=== PATIENT | female | born 1965 | race Caucasian/White ===

== ENCOUNTER 2020-01-07 15:35 | Emergency (ER) | payer OTHER, SELFPAY ==
--- NOTE | ~2020-01-07 | CT_ITS ---
EXAMINATION: CT abdomen pelvis w con EXAM DATE: 01/07/2020 18:12 INDICATION: Left lower quadrant pain. TECHNIQUE: Spiral CT of the abdomen and pelvis was performed following intravenous injection of 100 m L Omnipaque 350. Axial, coronal and sagittal images were reviewed. The dose-length product (DLP) fo r this examination was 821.48 mGy-cm. The exposure was tailored according to patient size (auto mA e xposure control), and iterative reconstruction (ASIR) was used as additional dose reduction technique . There is no prior study for comparison. FINDINGS: The liver, spleen, adrenal glands and pancreas are unremarkable. Gallbladder is unremarkab le. No biliary obstruction. Portal and splenic veins are patent. Kidneys enhance symmetrically. Sm all regions of left renal cortical scarring. There is no hydronephrosis. Probable small uterine fib roids. Ovaries are unremarkable. The bladder is unremarkable. There is no retroperitoneal or pelvic lymphadenopathy. The appendix is not positively visualized. There is no pericecal inflammatory change to suggest appe ndicitis. There is mild scattered colonic diverticulosis. There is no adjacent inflammatory change t o suggest diverticulitis. The stomach and small bowel are unremarkable. There is expected amount of colonic stool. No free intraperitoneal gas. The heart is normal in size. There are no pericardia l or pleural effusions. There is 4 mm right lower lobe nodule which is pleural-based, most likely gr anuloma. Several other 2-3 mm right middle lobe nodules. Optional twelve-month follow-up low-dose zay st CT. There are no osteoblastic or osteolytic lesions identified. Advanced lower lumbar facet arthr opathy. IMPRESSION: 1. Several small right basilar nodules less likely granulomas; optional twelve-month follow-up low-d ose chest CT. 2. Probable small fibroids. 3. Mild scattered colonic diverticulosis. 4. No acute intra-abdominal findings. Reviewed, dictated and finalized at location A. RIAL CONTROL ANALYST IMPRESSION: 1. Several small right basilar nodules less likely granulomas; optional twelve -month follow-up low-dose chest CT. 2. Probable small fibroids. 3. Mild scattered colonic diverticulosis. 4. No acute intra-abdominal findings.
[2020-01-07 15:52] VITALS: BP 150/82; PULSE 121; RESP 18; TEMP 36.7; O2SAT 98
[2020-01-07 16:10] LABS: Basophils Percent Auto 0.3 % (0.2-1.2); Eosinophils Absolute Auto 0.1 K/mm3 (0-0.3); Eosinophils Percent Auto 4.7 % (0-4.4); Hematocrit 37.4 % (37.0-47.0); Hemoglobin 12.7 g/dL (12.0-15.0); Lymphocytes Absolute Auto 0.73 K/mm3 (0.9-3.2); Lymphocytes Percent Auto 24.3 % (18.3-44.2); Mean Corpuscular Hemoglobin 29.5 pg (26-34); Mean Platelet Volume 9.4 fl (7.4-10.4); Monocytes Absolute Auto 0.4 K/mm3 (0.1-0.6); Monocytes Percent Auto 14.3 % (2.6-8.5); Neutrophils Absolute Auto 1.7 K/mm3 (1.3-6.7); Neutrophils Percent Auto 56.4 % (45.5-73.1); Platelet Count Result 188 k/mm3 (150-375); Red Cell Distribution Width 12.4 % (11.5-14.5)
[2020-01-07 16:20] LABS: Alanine Aminotransferase 31 U/L (4-35); Albumin Level 4.4 g/dL (3.5-5.1); Alkaline Phosphatase 127 U/L (38-126); Aspartate Amino Transferase 34 U/L (14-36); Bilirubin,Total 0.7 mg/dL (0.2-1.3); Blood Urea Nitrogen 13 mg/dL (7-17); Calcium 9.5 mg/dL (8.4-10.2); Carbon Dioxide 24 mmol/L (22-30); Chloride 98 mmol/L (98-107); Estimated CRCL calculation 81 ml/min; Estimated Glomerular Filt Rate > 60; Glucose 119 mg/dL (65-105); Lipase 57 U/L (23-300); Potassium 3.8 mmol/L (3.4-5.0); Sodium 132 mmol/L (137-145)
--- NOTE | 2020-01-07 17:33 | ED.ABDPAIN ---
HPI - Abdominal Pain General Chief Complaint: Abdominal Pain Stated Complaint: abd pain Time Seen by Provider: 01/07/20 17:24 Source: patient Mode of arrival: ambulatory Limitations: no limitations History of Present Illness HPI narrative: The pt is a 55 y/o female who presents to the ED c/o constant sharp LUQ ABD pain onset today. Pt states that two days ago, she had some undercooked shrimp at [employer], and experienced some N/V, though the vomiting is resolved. She states that this resolved yesterday, but today, she experienced some nausea, dizziness, diaphoresis, and this sharp pain. Pt also reports that she has not taken any pain medications. Pt reports loose stools. MD elicited complaint: abdominal pain Pain Consistency: constant Location: LUQ Quality: sharp Associated symptoms: nausea (Onset 2 days ago), vomiting (Onset 2 days ago, Resolved ) and other (Diaphoresis, dizziness, loose stools) Related Data Allergies Allergy/AdvReac Type Severity Reaction Status Date / Time No Known Allergies Allergy Unknown Verified 01/07/20 17:48 Review of Systems Review of Systems: All systems reviewed & are unremarkable except as noted in HPI and below Constitutional: Constitutional: Reports excessive sweating Gastrointestinal: Gastrointestinal: Reports abdominal pain (Sharp, LUQ), Reports nausea (Onset 2 days ago), Reports vomiting (Onset 2 days ago, resolved) and Reports other (Loose stools) Neurologic: Reports dizziness PMFSH Past Medical History Medical History (Updated 01/07/20 @ 20:08 by Jamey Martinez DO) Anxiety and depression Essential hypertension HTN (hypertension) Obesity (BMI 30-39.9) Surgical History Surgical History (Updated 01/07/20 @ 18:00 by Candelario Trinidad) H/O section H/O tubal ligation Social History Social History (Updated 01/07/20 @ 18:00 by Candelario Trinidad) Smoking status: Never smoker Gender identity (if verbalized by the patient): Female Comments PCP: Dr. Velez Exam Narrative: Exam Narrative: APPEARANCE: No acute distress, nontoxic, resting in bed HEENT: Normocephalic, atraumatic, OMM RESPIRATORY: No respiratory distress, clear to auscultation bilaterally with no rhonchi wheezing or rales CARDIOVASCULAR: RRR s murmur ABDOMINAL: Soft, nondistended, tender to palpation left lower quadrant no tenderness in right upper quadrant, right lower quadrant left upper quadrant, no rebound or guarding MUSCULOSKELETAl: Moves all extremities. No clubbing, cyanosis or edema. NEURO: Awake and alert. Following commands, speech normal, no focal deficits SKIN:: Warm, dry. Normal Color PSYCHIATRIC: Normal affect/mood Course Course Emergency Course: Patient states that they are feeling much better at this time. States abdominal pain has resolved. Repeat abdominal exam shows the patient's abdomen to be soft and nontender. Discussed with patient results of workup and diagnosis. Discussed need for follow-up with primary care physician, reasons to return to the emergency department in proper use of medication. Patient understands and agrees to current treatment plan Vital Signs Vital signs: Vital Signs Temperature 98.0 F 01/07/20 15:52 Pulse Rate 121 H 01/07/20 15:52 Respiratory Rate 18 01/07/20 15:52 Blood Pressure 150/82 H 01/07/20 15:52 Pulse Oximetry 98 01/07/20 15:52 Temperature 98.0 F 01/07/20 15:52 Pulse Rate 121 H 01/07/20 15:52 Respiratory Rate 18 01/07/20 15:52 Blood Pressure 150/82 H 01/07/20 15:52 Pulse Oximetry 98 01/07/20 15:52 MDM - Abdominal Pain MDM Narrative Medical decision making narrative: Patient's abdomen is soft without significant pain or signs of surgical abdomen on serial exams. Lab and x-ray evaluations are reviewed and patient is felt to be a reasonable candidate for outpatient management. Patient was instructed as to limitations of x-ray and laboratory evaluation and encouraged to return to ED or primary physician for repeat exa
[2020-01-07] MEDS: SODIUM CHLORIDE 0.9% IV 1,000 ML 999 ML IV CONT ×2 (18:33→19:24)
[2020-01-07] MEDS: ONDANSETRON INJ 4 MG/2 ML VIAL IV PUSH (18:33)
[2020-01-07 18:46] LABS: Add Urine Microscopic? YES; Appearance Urine Clear (Clear); Bilirubin Urine Negative (Negative); Blood Urine Negative (Negative); Color Urine Yellow (Yellow); Glucose Urine UA Negative (Negative); Ketones Urine 2+ mg/dL (Negative); Leukocyte Esterase Ur Negative LEU/UL (Negative); Mucus Urine Rare /lpf; Nitrate Urine Negative (Negative); Protein Urine 1+ mg/dL (Negative); RBC Urine 0-2 /hpf (0-2); Squamous Epithelial Cell Urine Many /hpf (Few); Urobilinogen Urine Negative mg/dL (<2.0)
[2020-01-07 20:06] VITALS: BP 131/69; PULSE 86; RESP 20; O2SAT 96
[2020-01-07 20:41] VITALS: BP 132/80; PULSE 80; RESP 20; TEMP 36.7; O2SAT 98
== END 2020-01-07 20:42 | disposition home or self-care (01) ==
PROVIDERS: Emergency Provider Emergency Medicine; PCP Internal Medicine
DX: R10.12 Left upper quadrant pain (principal); R11.2 Nausea with vomiting, unspecified; R19.7 Diarrhea, unspecified; I10 Essential (primary) hypertension; E66.9 Obesity, unspecified; Z68.35 Body mass index [BMI] 35.0-35.9, adult
CPT/HCPCS: 36415; 74177; 80053; 81001; 81025; 83690; 85025; 96361; 96365; 96375; 99284; J0131; J2405; J7030; Q9967

== ENCOUNTER 2020-09-12 08:37 | Outpatient (CLI) | payer OTHER, SELFPAY ==
--- NOTE | ~2020-09-12 | MM_ITS ---
EXAMINATION: MM screening priyanka BI w sulma HISTORY: Screening mammogram TECHNIQUE: Craniocaudal and mediolateral oblique 3-D tomosynthesis images were obtained and synthetic 2-D images were generated. CAD analysis was submitted and interpreted. COMPARISON: 09/23/2010 BREAST PARENCHYMAL COMPOSITION: There are scattered areas of fibroglandular density. FINDINGS: There is no evidence of suspicious mass, calcification, or architectural distortion to sugg est malignancy in either breast. There has been no suspicious interval change. IMPRESSION: 1. No mammographic evidence of malignancy. 2. Recommend routine screening mammography in one year. BI-RADS Category 1: Negative Reviewed, dictated and finalized at location A. OR SAFETY SUPPORT MANAGER
== END 2020-09-12 08:38 | disposition home or self-care (01) ==
LOC: ANHIMG 08:39
PROVIDERS: PCP Internal Medicine; Visit Provider Internal Medicine
DX: Z12.31 Encounter for screening mammogram for malignant neoplasm of breast (principal)
CPT/HCPCS: 77063; 77067

== ENCOUNTER 2024-10-21 09:56 | Outpatient (CLI) | payer BC, SELFPAY ==
--- NOTE | ~2024-10-21 | MM_ITS ---
EXAMINATION: MM screening priyanka BI w sulma HISTORY: Screening TECHNIQUE: Craniocaudal and mediolateral oblique 3-D tomosynthesis images were obtained and synthetic 2-D images were generated. CAD analysis was submitted and interpreted. COMPARISON: Comparison to multiple prior studies sequentially, with oldest reviewed study dated 09/03. BREAST PARENCHYMAL COMPOSITION: Not dense: There are scattered areas of fibroglandular density. FINDINGS: There is no evidence of suspicious mass, calcification, or architectural distortion to sugg est malignancy in either breast. There has been no suspicious interval change. IMPRESSION: 1. No mammographic evidence of malignancy. 2. Recommend routine screening mammography in one year. BI-RADS Category 1: Negative Reviewed, dictated and finalized at location B. D GRADE TEACHER
== END 2024-10-21 09:57 | disposition home or self-care (01) ==
LOC: ANHIMG 09:59
PROVIDERS: PCP Family Medicine; Visit Provider Family Medicine
DX: Z12.31 Encounter for screening mammogram for malignant neoplasm of breast (principal)
CPT/HCPCS: 77063; 77067

== ENCOUNTER 2024-11-04 22:25 | Emergency (ER) | payer BC, SELFPAY ==
--- NOTE | ~2024-11-04 | XR_ITS ---
XR hand RT min 3V DATE: 11/05/2024 08:39 INDICATION: Fall yesterday. Pain and bruising of second through fourth digits TECHNIQUE: 3 views COMPARISON: None FINDINGS: There is a small minimally anteriorly displaced intra-articular anterolateral corner fractu re of the base of the middle phalanx of the third digit. Probable small accessory ossicle at the lateral aspect of the proximal interphalangeal joint of the f ourth digit; if there is concern for possible fracture of this digit, better detail could be obtained with dedicated 4 view fourth digit radiographic examination. No other fracture dislocation, periosteal reaction or bone destruction, erosive change or chondrocalc inosis is noted. IMPRESSION: Small cortical avulsion fracture the anterolateral aspect of the middle phalanx of the th ird digit Reviewed, dictated and finalized at location A. AL THERAPIST IMPRESSION: Small cortical avulsion fracture the anterolateral aspect of the mi ddle phalanx of the third digit
--- NOTE | ~2024-11-04 | CT_ITS ---
CT brain wo con Ordering provider: Kendra Ansari PA-C History: 59 years Female with . head injury . Comparison: 04/22/2015. Technique: CT of the head without contrast. Radiation reduction technique utilized.The dose-length product was 1362 mGy-cm. FINDINGS: BRAIN PARENCHYMA AND CSF SPACES: No midline shift, mass effect or hemorrhage. The brain parenchyma a nd CSF spaces are otherwise normal. VISUALIZED PARANASAL SINUSES: Well aerated. MASTOIDS: Well aerated. BONES: The bones appear intact. SOFT TISSUES: Visualized nasopharynx is normal. Left frontal scalp hematoma. Otherwise, Superficial soft tissues are normal. IMPRESSION: No acute intracranial findings. Reviewed, dictated and finalized at location A. DYNAMICS DEVELOPER
--- NOTE | ~2024-11-04 | CT_ITS ---
CT facial & cervical spine wo Ordering provider: Kendra Ansari PA-C History: . fall . Comparison: None. Technique: Thin slice axial CT of the facial bones was performed without contrast. Coronal and sagit flory reformatted images were also obtained. . Automated exposure control and iterative reconstruction technique were employed. The dose-length product was 379.40 mGy-cm. FINDINGS: PARANASAL SINUSES: Minimal mucosal thickening in the right maxillary sinus otherwise, normal. BONES: No facial fracture including no nasal bone fracture. ORBITS AND SUPERFICIAL SOFT TISSUES: The optic globes and orbits are normal. Left frontal scalp hemat mel. Otherwise, the The superficial soft tissues are normal. VISUALIZED MASTOIDS: Well aerated. LIMITED VISUALIZED BRAIN PARENCHYMA: Normal. IMPRESSION: No facial fracture. CT facial & cervical spine wo Ordering provider: Kendra Ansari PA-C History: . fall . Comparison: None. Technique: CT of the cervical spine was performed without contrast. Sagittal and coronal reformatted images were also obtained and reviewed. Automated exposure control and iterative reconstruction elijah hnique were employed. The dose-length product was 379.40 mGy-cm. FINDINGS: VERTEBRAE: No subluxation or acute fracture. The occipital condyles are intact. Fusion of C2-C3. DISC SPACES: Narrowing of the disc C6-C7. Uncovertebral joint osteoarthritic changes at multiple leve ls. Narrowing of the left foramina at the level of C3-C4. Narrowing of the foramina at the level of C 5-C6. PARASPINOUS SOFT TISSUES: Normal. IMPRESSION: No acute osseous abnormality cervical spine. Reviewed, dictated and finalized at location A. CE MACHINES WIRER IMPRESSION: No facial fracture. --------- CT facial & cervical spine wo Ordering provider: Kendra Ansari PA-C History: . fall . Comparison: None. Technique: CT of the cervical spine was performed without contrast. Sagittal a nd coronal reformatted images were also obtained and reviewed. Automated expos ure control and iterative reconstruction technique were employed. The dose-rigoberto th product was 379.40 mGy-cm. FINDINGS: VERTEBRAE: No subluxation or acute fracture. The occipital condyles are intact. Fusion of C2-C3. DISC SPACES: Narrowing of the disc C6-C7. Uncovertebral joint osteoarthritic ch anges at multiple levels. Narrowing of the left foramina at the level of C3-C4. Narrowing of the foramina at the level of C5-C6. PARASPINOUS SOFT TISSUES: Normal.
[2024-11-04 22:37] VITALS: BP 186/94; PULSE 86; RESP 14; TEMP 36.5; O2SAT 97
[2024-11-05 06:27] VITALS: BP 172/70; PULSE 100; RESP 16; TEMP 36.3; O2SAT 98
--- NOTE | 2024-11-05 08:20 | ED_ITS ---
HPI - Head Injury General Chief complaint: Head Injury Stated complaint: fall, hit the L. forehead Time Seen by Provider: 11/05/24 08:14 Source: patient History of Present Illness HPI Narrative: 59 years old white female came to the ED by private car after falling in the bathroom at a bar. Hitting the left side of forehead, and right hand. Patient had lot of alcohol drink at that time, not sure if she blacked out or not. Currently her main complaint left forehead pain and right hand pain. Patient did not take her Home medicine since last night. Related Data Home Medications ?Medication ?Instructions ?Recorded ?Confirmed ?Last Taken ?Type multivitamin 1 cap PO DAILY 09/18/20 01/10/22 Unknown History cholecalciferol (vitamin D3) 25 25 mcg PO DAILY 12/18/20 01/10/22 Unknown Histo ry mcg (1,000 unit) capsule fluticasone propionate 50 1 spray intranasal BID 01/10/22 01/10/22 Unknown History mcg/actuation nasal spray,suspension (Flonase Allergy Relief) omeprazole 40 mg capsule,delayed 40 mg PO DAILY 01/10/22 01/10/22 Unknown History release Allergies Allergy/AdvReac Type Severity Reaction Status Date / Time No Known Allergies Allergy Unknown Verified 11/05/24 08:24 Review of Systems Review of Systems: All systems reviewed & are unremarkable except as noted in HPI and below PMFSH Past Medical History Medical History HTN (hypertension) Obesity (BMI 30-39.9) Anxiety and depression Essential hypertension Surgical History Surgical History H/O section H/O tubal ligation Social History Social History Second hand tobacco smoke exposure: No Alcohol intake: current Drinks per week: 10 Substance use: never Gender identity (if verbalized by the patient): Female Exam Narrative: General appearance: Well-developed, well-nourished Skin: Normal color Head: left forehead bruises, swelling Eyes: Clear conjunctiva ENT: Oropharynx normal, ears normal, nose normal Neck: Supple, nontender Chest and respiratory: Airway patent, no respiratory distress, no accessory muscle use Heart: Regular rate/rhythm Abdomen: Soft, nontender, no organomegaly, quiet bowel sounds Vascular: Normal peripheral pulses, normal capillary refill. Musculoskeletal: right hand bruises and diffuse tenderness at the palmar side, with limited range of motion of the fingers, no deformity Neurologic: Alert and oriented ?3, ONCOLOGY ACCOUNT SPECIALIST is normal as tested, no gross motor deficit Course Vital Signs Vital signs: Vital Signs Temperature 36.5 C 11/04/24 22:37 Pulse Rate 86 11/04/24 22:37 Respiratory Rate 14 11/04/24 22:37 Blood Pressure 186/94 H 11/04/24 22:37 Pulse Oximetry 97 11/04/24 22:37 Temperature 36.3 C L 11/05/24 06:27 Pulse Rate 86 11/05/24 08:26 Respiratory Rate 15 11/05/24 08:26 Blood Pressure 191/88 H 11/05/24 08:26 Pulse Oximetry 98 11/05/24 08:26 MDM - Head Injury MDM Narrative Medical decision making narrative: patient tripped and fell secondary to excessive alcohol intake last night Differential Diagnosis Differential diagnosis: Likely concussion without loss of consciousness, closed head injury, subdural hematoma and concussion with loss of consciousness Imaging Data My impression: Impressions Head CT 11/04/24 23:20 IMPRESSION: No acute intracranial findings. Head/Cervical Spine/Facial Bones CT 11/04/24 23:28 IMPRESSION: No facial fracture. -------- CT facial & cervical spine wo Ordering provider: Kendra Ansari PA-C History: . fall . Comparison: None. Technique: CT of the cervical spine was performed without contrast. Sagittal and coronal reformatted images were also obtained and reviewed. Automated exposure control and iterative reconstruction technique were employed. The dose- length product was 379.40 mGy-cm. FINDINGS: VERTEBRAE: No subluxation or acute fracture. The occipital condyles are intact. Fusion of C2-C3. DISC SPACES: Narrowing of the disc C6-C7. Uncovertebral joint osteoarthritic changes at multiple levels. Narrowing of the left foramina at the level of C3- C4. Narrowing of the foramina at the level of C5-C6. PARASPINOUS SOFT TISSUES: Normal. IMPRESSION: No acute osseous abnormality cervical spine. Hand X-Ray 11/05/24 08:39 IMPRESSION: Small cortical avulsion fracture the anterolateral aspect of the middle phalanx of the third digit Radiologist's impression: Impressions Head CT 11/04/24 23:20 IMPRESSION: No acute intracranial findings. Head/Cervical Spine/Facial Bones CT 11/04/24 23:28 IMPRESSION: No facial fracture. -------- CT facial & cervical spine wo Ordering provider: Kendra Ansari PA-C History: . fall . Comparison: None. Technique: CT of the cervical spine was performed without contrast. Sagittal and coronal reformatted images were also obtained and reviewed. Automated exposure control and iterative reconstruction technique were employed. The dose- length product was 379.40 mGy-cm. FINDINGS: VERTEBRAE: No subluxation or acute fracture. The occipital condyles are intact. Fusion of C2-C3. DISC SPACES: Narrowing of the disc C6-C7. Uncovertebral joint osteoarthritic changes at multiple levels. Narrowing of the left foramina at the level of C3- C4. Narrowing of the foramina at the level of C5-C6. PARASPINOUS SOFT TISSUES: Normal. IMPRESSION: No acute osseous abnormality cervical spine. Critical Care Time Critical Care Time Critical Care Time: No Discharge Plan Discharge Clinical Impression: Alcohol abuse, Contusion of face, Finger fracture, right Patient Disposition: Home, Self-Care Condition: Stable Instructions: Hand Fracture (ED), Head Injury (DC), Contusion in Adults (ED) Additional Instructions: Return if symptoms are worsening , call hand surgeon for appointment, take Tylenol , ibuprofenas as needed for aches and pain, continue home medications. Patient Language: Haitian Prescriptions: No Action multivitamin Capsule 1 cap PO DAILY fluticasone propionate [Flonase Allergy Relief] 50 mcg/actuation spray,suspension 1 spray intranasal BID Rx Instructions: administer into each nostril patient take as needed cholecalciferol (vitamin D3) 25 mcg (1,000 unit) capsule 25 mcg PO DAILY omeprazole 40 mg capsule,delayed release(DR/EC) 40 mg PO DAILY Rx Instructions: patient take medication as needed alprazolam [Xanax XR] 0.5 mg tablet extended release 24 hr 0.5 mg PO DAILY PRN (Reason: anxiety) Qty: 30 0RF duloxetine 30 mg capsule,delayed release(DR/EC) See Rx Instructions .ROUTE .COMPLEX Qty: 90 1RF Dose Instruction: TAKE 1 CAPSULE BY MOUTH DAILY Rx Instructions: TAKE 1 CAPSULE BY MOUTH DAILY lisinopril 40 mg tablet 40 mg PO DAILY Qty: 90 1RF amoxicillin-pot clavulanate [Augmentin] 500-125 mg tablet 1 tablet PO Q12H Qty: 20 0RF amlodipine 10 mg tablet See Rx Instructions .ROUTE .COMPLEX Qty: 90 1RF Dose Instruction: TAKE 1 TABLET BY MOUTH DAILY Rx Instructions: TAKE 1 TABLET BY MOUTH DAILY Follow-up/Referrals: Freedom Castañeda MD [Physician] - 11/08/24 Ramila,Davin Ramirez MD [Primary Care Provider] -
[2024-11-05 08:26] VITALS: BP 191/88; PULSE 86; RESP 15; O2SAT 98
[2024-11-05] MEDS: amLODIPine BESYLATE 10 MG TABLET PO (08:43)
[2024-11-05] MEDS: ONDANSETRON HCL ODT 4 MG TABLET 8 MG PO (08:45)
[2024-11-05] MEDS: lisinopriL 20 MG TABLET 40 MG PO (08:45)
[2024-11-05] MEDS: KETOROLAC (*BKC) 60 MG/2 ML VIAL IM (08:47)
[2024-11-05 09:47] VITALS: BP 151/66; PULSE 108; RESP 16; TEMP 36.6; O2SAT 99
--- OUTSIDE RECORDS SUMMARY | 2024-11-12 11:34 | XMS_ITS | Clinical Summary ---
Author Organization [facility] Address [address] [place] [address] Care Team Providers Care Balance Bridge Assembler Name Role Phone Bill Stoner MD Primary Care Provider Unavail able Source Comments [facility],non-owned Affiliates and Associated Physician Practices is amultiple site organization consisting of ambulatory clinics and hospital sitesin [place], [place], [place] and [place]. This disclosure is being madepursuant to the Care Everywhere program and may not contain all information available regarding this patient. Last updated 18.[facility] [place] Allergies No known active allergies Medications * Be aware that medications may not be up to date on this document. Alwaysverify current medications with the patient. Medication Sig Dispensed Refills Start Date End Date Status LISINOPRIL PO Active Fluticasone Propionate (FLONASE NA) Active benzonatate (TESSALON) 200 MG capsule Take 1 capsule by mouth 3 times daily as needed for Cough 30 capsule 08/04/2019 Active Family History Medical History Relation Name Comments Other - Hepatic/Liver Father Dementia Mother Relation Name Status Comments Father Mother Social History Tobacco Use Types Packs/Day Years Used Date Smoking Tobacco: Never Smokeless Tobacco: Never Sex and Gender Information Value Date Recorded Sex Assigned at Not on file Gender Identity Not on file Sexual Orientation Not on file Last Filed Vital Signs Vital Sign Reading Time Taken Comments Blood Pressure 124/80 08/04/2019 11:15 AM CDT Pulse 94 08/04/2019 11:15 AM CDT Temperature 36.8 ??C (98.3 ??F) 08/04/2019 11:15 AM C DT Respiratory Rate 20 08/04/2019 11:15 AM CDT Oxygen Saturation 98% 08/04/2019 11:15 AM CDT Inhaled Oxygen Concentration - - Weight 93 kg (205 lb) 08/04/2019 11:15 AM CDT Height 157.5 cm (5' 2 ) 08/04/2019 11:15 AM CDT Body Mass Index 37.49 08/04/2019 11:15 AM CDT Plan of Treatment Health Maintenance Due Date Last Done Comments COLOGUARD (AGES 45-75) - COL ON CA SCREENING 1965 COLON MONITORING 1965 COLONOSCOPY - COLON CA SCREENING 1965 CT COLONOGRAPHY - COLON CA SCREENING 1965 Colorectal Cancer Screening 1965 FIT - COLON CA SCREENING 1965 FLEX SIG - COLON CA SCREENING 1965 LIPID TESTING 1965 MAMMOGRAM 1965 PAP SMEAR 1965 HIV SCREENING 01/04/1980 HEPATITIS C SCREENING 12/30/1982 DTAP/TDAP/TD VACCINES (1 - Tdap) 01/04/1984 HEPATITIS B VACCINE (1 of 3 - 19+ 3-dose series) 01/04/1984 ZOSTER VACCINE (1 of 2) 2015 SCREENING FOR DIABETES 08/04/2019 DEPRESSION SCREENING 11/02/2023 COVID-19 VACCINE ( - 2023-2 5 season) 2024 INFLUENZA VACCINE (#1) 2024 HIB VACCINE Aged Out No longer eligi ble based on patient's age to complete this topic HPV VACCINE Aged Out No longer eligi ble based on patient's age to complete this topic MENINGOCOCCAL VACCINE Aged Out No ruby chuy eligible based on patient's age to complete this topic PNEUMOCOCCAL VACCINE Aged Out No long er eligible based on patient's age to complete this topic Care Teams Balance Bridge Assembler Relationship Specialty Start Date End Date Bill Stoner MD PCP - General Internal Medicine 03/02/18
--- OUTSIDE RECORDS SUMMARY | 2024-11-12 11:34 | XMS_ITS | Encounter Summary ---
Author Organization [facility] Healthcare Address [address] [place] [address] Care Team Providers Care Bread Baker Name Role Phone Bill tSoner MD Unavailable Davin Mcgrath MD Primary Care Provider + Reason for Referral * Diagnostic Imaging (Routine) - Authorized Specialty Diagnoses / Procedures Referred By Contac t Referred To Contact Diagnoses Encounter for screening mammogram for malignant neoplasm of breast Procedures Screening Mammogram Bilateral W Davin Mackay MD [address] [place] [address] Phone: tel: fax: Unknown Place of Service fax: Referral ID Status Reason Start Date Expiration Date V isits Requested Visits Authorized [id number] Authorized 12/25/2023 01/23/2025 1 1 NE TUTOR Reason for Visit * Reason Comments Hoarseness Cold Symptoms Started Thursday, chil ls, hoarse, cough, took roge seltzer plus Encounter Details Date Type Department Care Team ([facility] Contact Info) Description 12/25/2023 4:00 PM ONLINE TUTOR Office Visit [facility] Primary Care [address] [place] [phone] Davin Mcgrath MD [address] [place] [address] Annual physical exam (Primary Dx); Hypertension, essential; ARJUN (generalized anxiety disorder); Moderate episode of recurrent major depressive disorder (HCC); Non-seasonal allergic rhinitis due to other allergic trigger; Acute nasopharyngitis; Class 3 severe obesity due to excess calories with serious comorbidity and body mass index (BMI) of 40.0 to 44.9 in adult (HCC); Encounter for screening mammogram for malignant neoplasm of breast Social History Tobacco Use Types Packs/Day Years Used Date Smoking Tobacco: Never Smokeless Tobacco: Never Alcohol Use Standard Drinks/Week Comments Not Currently 0 (1 standard drink = 0.6 oz pur e alcohol) AUDIT-C Answer Date Recorded Q1: How often do you have a drink containing alc ohol? 2-3 times a week 04/30/2022 Q2: How many drinks containi ng alcohol do you have on a typical day when you are drinking? 3 or 4 04/30/2022 Q3: How often do you have si x or more drinks on one occasion? Monthly 04/30/2022 PHQ-2 Answer Date Recorded PHQ-2 Total Score (If total score is 3 or more points, staff should administer the PHQ-9) 0 12/25/2023 Comments No Sex and Gender Information Value Date Recorded Sex Assigned at Not on file Legal Sex Female 9:09 PM ONLINE TUTOR Gender Identity Not on file Sexual Orientation Not on file documented as of this encounter Last Filed Vital Signs Vital Sign Reading Time Taken Comments Blood Pressure 128/82 12/25/2023 3:30 PM ONLINE TUTOR Pulse 87 12/25/2023 3:30 PM ONLINE TUTOR Temperature 36.6 ??C (97.9 ??F) 12/25/2023 3:30 PM CS T Respiratory Rate 20 12/25/2023 3:30 PM ONLINE TUTOR Oxygen Saturation 95% 12/25/2023 3:30 PM ONLINE TUTOR Inhaled Oxygen Concentration - - Weight 96.2 kg (212 lb) 12/25/2023 3:30 PM ONLINE TUTOR Height 154.9 cm (5' 1 ) 12/25/2023 3:30 PM ONLINE TUTOR Body Mass Index 40.06 12/25/2023 3:30 PM ONLINE TUTOR documented in this encounter Ordered Prescriptions Prescription Sig Dispense Quantity Refills Last Filled Start Date End Date lisinopriL (PRINIVIL,ZESTRIL) 40 mg tabletIndications:Hyp ertension, essential Take 1 tablet (40 mg total) by mouth daily 90 tablet 3 12/25/2023 4 predniSONE (DELTASONE) 20 mg tabletIndications:Acu te nasopharyngitis Take 2 tablets (40 mg) by mouth daily for 5 days 10 tablet 12/25/2023 4 guaiFENesin-codeine (GUAITUSS AC) liquid 100-10 mg/5 mLIndications:Acute nasopharyngitis Take 5-10 mL by mouth every 4 (four) hours as needed for cough 120 mL 12/25/2023 4 documented in this encounter Progress Notes * Davin Mcgrath MD - 12/25/2023 4:00 PM CST Images from the original note were not included. Subjective/Objective Patient ID: Mojgan Neves is a 58 y.o. female. Chief Complaint Hoarseness and Cold Symptoms (Started Thursday, chills, hoarse, cough, took roge seltzer plus) Vitals: 12/25/23 1530 BP: 128/82 BP Location: Left arm Patient Position: Sitting Pulse: 87 Resp: 20 Temp: 36.6 ??C (97.9 ??F) TempSrc: Temporal SpO2: 95% Weight: 96.2 kg (212 lb) Height: 154.9 cm (5' 1 ) Wt Readings from Last 3 Encounters: 12/25/23 96.2 kg (212 lb) 06/24/23 97.2 kg (214 lb 3.2 oz) 05/12/23 97.9 kg (215 lb 14.4 oz) HPI: Mojgan Neves is a 58 y.o. female here today for the following concerns: Annual exam - due for labs. Not exercising. Up to date on colonoscopy. Up to date on pap. Due for mammo. Grief reaction - pt c/o depressive type sx since her friend 6 mo ago. No insomnia. Normal appetite. Not interested in med/counseling. URI - 2 wks of cough, congestion, R ear pain. Taking OTC cold meds. Chronic Medical Conditions: Hypertension - lisinopril 40mg daily Depression/ARJUN - previously on cymbalta 30mg daily Allergic Rhinitis - previously on flonase daily Gallstones - pos US, elevated Alk Phos Health Maintenance: - Colonoscopy (45-75): age 50 - normal; due 2024 - Tobacco history: Never used - Exercise: occasional - Mammogram (50-74): 2020 - Pap (21-65): 2020 Specialists Involved in Care: - Property Master - Dr Davila Health Maintenance Topic Date Due Cervical Cancer Screening Never done Breast Cancer Screening-Mammogram Never done Hepatitis C Screening Never done DTaP/Tdap/Td Vaccine (1 - Tdap) Never done Zoster Vaccine (2 of 2) 12/31/2022 Covid-19 Vaccine (3 - 2022- season) 2023 Influenza Vaccine (1) Never done Depression Screening-PHQ 12/25/2024 Regular Well Visit/Exam 18-64 12/25/2024 Colon Cancer Screening-Colonoscopy 05/14/2025 Pneumococcal vaccine <65 Aged Out Colon Cancer Screening-DNA Stool Discontinued Colon Cancer Screening-CT Colonography Discontinued Colon Cancer Screening-FIT Discontinued Colon Cancer Screening-Sigmoidoscopy Discontinued Review of Systems Constitutional: Negative for chills and fever. HENT: Negative for congestion, rhinorrhea and sore throat. Respiratory: Negative for cough and shortness of breath. Cardiovascular: Negative for chest pain. Gastrointestinal: Negative for abdominal pain, constipation, diarrhea, nausea and vomiting. Neurological: Positive for headaches. Psychiatric/Behavioral: Negative for dysphoric mood and sleep disturbance. The patient is not nervous/anxious. Physical Exam Vitals reviewed. Constitutional: Appearance: She is well-developed. HENT: Head: Normocephalic and atraumatic. Right Ear: External ear normal. Tympanic membrane is injected. Tympanic membrane is not erythematous. Left Ear: Tympanic membrane and external ear normal. Tympanic membrane is not erythematous. Mouth/Throat: Mouth: Mucous membranes are moist. Pharynx: Uvula midline. Posterior oropharyngeal erythema present. No oropharyngeal exudate. Eyes: General: Right eye: No discharge. Left eye: No discharge. Conjunctiva/sclera: Conjunctivae normal. Pupils: Pupils are equal, round, and reactive to light. Cardiovascular: Rate and Rhythm: Normal rate and regular rhythm. Heart sounds: Normal heart sounds, S1 normal and S2 normal. No murmur heard. No friction rub. No gallop. Pulmonary: Effort: Pulmonary effort is normal. No respiratory distress. Breath sounds: Normal breath sounds. No wheezing or rales. Abdominal: General: Bowel sounds are normal. There is no distension. Palpations: Abdomen is soft. Tenderness: There is no abdominal tenderness. There is no guarding or rebound. Skin: General: Skin is warm and dry. Findings: No rash. Neurological: General: No focal deficit present. Mental Status: She is alert and oriented to person, place, and time. Psychiatric: Mood and Affect: Mood normal. Speech: Speech normal. Behavior: Behavior normal. Thought Content: Thought content normal. Judgment: Judgment normal. Assessment/Plan Diagnoses and all orders for this visit: Annual physical exam (Primary) Assessment & Plan: - Reviewed with the patient BMI, blood pressure, diet, exercise, and encouraged healthy lifestyle choices. - Screened for high risk behaviors, diet and exercise habits, and symptoms of depression. - check screening labs - encouraged regular exercise and weight loss Orders: - Thyroid Function [place]; Future - Lipid panel; Future - Comprehensive metabolic panel; Future Hypertension, essential Assessment & Plan: - stable - continue current medication Orders: - lisinopriL (PRINIVIL,ZESTRIL) 40 mg tablet; Take 1 tablet (40 mg total) by mouth daily ARJUN (generalized anxiety disorder) Assessment & Plan: - stable of meds; f/u prn Moderate episode of recurrent major depressive disorder (HCC) Assessment & Plan: - stable off meds; not interested in meds/counseling at this time - f/u prn Non-seasonal allergic rhinitis due to other allergic trigger Assessment & Plan: - stable - continue current medication Acute nasopharyngitis Assessment & Plan: - prednisone, robitussin - f/u prn Orders: - guaiFENesin-codeine (GUAITUSS AC) liquid 100-10 mg/5 mL; Take 5-10 mL by mouth every 4 (four) hours as needed for cough - predniSONE (DELTASONE) 20 mg tablet; Take 2 tablets (40 mg) by mouth daily for 5 days Class 3 severe obesity due to excess calories with serious comorbidity and body mass index (BMI) of40.0 to 44.9 in adult (HCC) Assessment & Plan: - rec healthy diet and regular exercise Encounter for screening mammogram for malignant neoplasm of breast - Screening Mammogram Bilateral W Derek; Future Orders Placed This Encounter Procedures Screening Mammogram Bilateral W Derek Standing Status: Future Standing Expiration Date: 02/22/2025 Order Specific Question: Clinical question to be answered: Answer: breast cancer screening Order Specific Question: Is the patient ? Answer: No Order Specific Question: Where should this order be performed? Answer: External Order [171] Thyroid Function [place] Standing Status: Future Standing Expiration Date: 12/25/2024 Lipid panel Standing Status: Future Standing Expiration Date: 12/25/2024 Comprehensive metabolic panel Standing Status: Future Standing Expiration Date: 12/25/2024 *This note is dictated using Mazree voice recognition software, variances in spelling and vocabulary are possible and unintentional.* Davin Mcgrath MD NE TUTOR documented in this encounter Miscellaneous Notes * Assessment & Plan Note - Davin Mcgrath MD - 12/25/2023 4:31 PM ONLINE TUTOR Associated Problem(s): Class 3 severe obesity due to excess calories with serious comorbidity and body mass index (BMI) of 40.0 to 44.9 in adult (HCC) - rec healthy diet and regular exercise NE TUTOR * Assessment & Plan Note - Davin Mcgrath MD - 12/25/2023 4:31 PM ONLINE TUTOR Associated Problem(s): Annual physical exam - Reviewed with the patient BMI, blood pressure, diet, exercise, and encouraged healthy lifestyle choices. - Screened for high risk behaviors, diet and exercise habits, and symptoms of depression. - check screening labs - encouraged regular exercise and weight loss NE TUTOR * Assessment & Plan Note - Davin Mcgrath MD - 12/25/2023 4:31 PM ONLINE TUTOR Associated Problem(s): Allergic rhinitis due to allergen - stable - continue current medication NE TUTOR * Assessment & Plan Note - Davin Mcgrath MD - 12/25/2023 4:31 PM ONLINE TUTOR Associated Problem(s): Acute nasopharyngitis - prednisone, robitussin - f/u prn NE TUTOR * Assessment & Plan Note - Davin Mcgrath MD - 12/25/2023 4:31 PM ONLINE TUTOR Associated Problem(s): Moderate episode of recurrent major depressive disorder (HCC) - stable off meds; not interested in meds/counseling at this time - f/u prn NE TUTOR * Assessment & Plan Note - Davin Mcgrath MD - 12/25/2023 4:30 PM ONLINE TUTOR Associated Problem(s): Hypertension, essential - stable - continue current medication NE TUTOR * Assessment & Plan Note - Davin Mcgrath MD - 12/25/2023 4:30 PM ONLINE TUTOR Associated Problem(s): ARJUN (generalized anxiety disorder) - stable of meds; f/u prn NE TUTOR documented in this encounter Plan of Treatment Scheduled Orders Name Type Priority Associated Diagnoses Orde r Schedule Screening Mammogram Bilateral W Derek Imaging Schedule Routine, Read Routine (OP Routine) Encounter for screening mammogram for malignant neoplasm of breast Expected: 12/25/2023, Expires: 02/22/2025 documented as of this encounter Results * (ABNORMAL) Comprehensive metabolic panel (05/10/2024 9:28 AM CDT) Sodium 141 135 - 145 mmol/L Comment:Testing performed by : [facility], [address] [place] [address]., [address] Potassium, pl 4.8 3.3 - 4.9 mmol/L [facility] Comment:Testing performed by : [address], [place]., [address] Chloride 102 97 - 110 mmol/L [facility] Comment:Testing performed by : [address], [place]., [address] CO2 27 22 - 32 mmol/L [facility] Comment:Testing performed by : [address], [place]., [address] Anion gap 12 2 - 15 mmol/L [facility] Comment:Testing performed by : [address], [place]., [address] BUN 12 6 - 25 mg/dL [facility] Comment:Testing performed by : [address], [place]., [address] Creatinine 0.70 0.60 - 1.10 mg/dL [facility] Comment:Testing performed by : [address] [address] Glucose 112 70 - 199 mg/dL [facility] Comment: Interpretive Data Fasting glucose >/= 126 mg/dl is diagnostic for diabetes. ?? Fasting is defined as no caloric intake for at least 8 hours. Fasting glucose between 100 mg/dl to 125 mg/dl is diagnostic of prediabetes. In a patient with classic symptoms of hyperglycemia or hyperglycemic crisis, a random glucose >/= 200 mg/dl is diagnostic for diabetes. In the absence of unequivocal hyperglycemia, results should be confirmed by repeat testing. The classification and Diagnosis of Diabetes Diabetes Care 2021; 46: S19-S40. Current interpretive data was last revised 2022. Testing performed by: [address] [address] Calcium 9.4 8.5 - 10.3 mg/dL [facility] Comment:Testing performed by : [address] [address] Bilirubin, total 0.6 0.1 - 1.2 mg/dL [facility] Comment:Testing performed by : [address], [place]., [address] Protein, pl 6.8 6.5 - 8.5 g/dL [facility] Comment:Testing performed by : [facility], [address] [place] [address]., [address] Albumin 4.3 3.5 - 5.0 g/dL [facility] Comment:Testing performed by : [address] [address] Alk phos 173(H) 40 - 130 Units/L [facility] Comment:Testing performed by : [address] [address] ALT 31 7 - 45 Units/L [facility] Comment:Testing performed by : [address] [address] AST 26 10 - 45 Units/L [facility] Comment:Testing performed by : [address] [address] Blood 05/10/2024 9:28 AM CDT 05/10/2024 11:45 AM CDT Davin Mcgrath MD LAB BLOOD ORDERABLES Fin al Result [facility] [address] [facility] Department [place] [address] * (ABNORMAL) Lipid panel (05/10/2024 9:28 AM CDT) Pathologist [facility] Cholesterol 222(H) 30 - 199 mg/dL Comment: Interpretive Data Ages < or = 19 years ??Acceptable: ? <170 mg/dL ??Borderline high: ??170-199 mg/dL ??High: ? >or= 200 mg/dL Ages > or = 20 years ??Desirable: ?<200 mg/dL ??Borderline high: ??200-239 mg/dL ??High: ? >or= 240 mg/dL Literature References: 1. Expert Panel on Integrated Guidelines for Cardiovascular Health and Risk Reduction in Children and Adolescents. Pediatrics 2011;128:S213 2. NCEP Expert Panel. Circulation 2004;110:227 Current Interpretive Data was last revised on 2018. Testing performed by: [address] [address] Triglycerides 193(H) <=149 mg/dL [facility] Comment: Interpretive Data Ages < or = 9 years ??Acceptable: ? <75 mg/dL ??Borderline high: ??75-99 mg/dL ??High: ? >or= 100 mg/dL Ages 10 to 20 years ??Acceptable: ? <90 mg/dL ??Borderline high: ??90-129 mg/dL ??High: ? >or= 130 mg/dL Ages > or = 20 years ??Desirable: ?<150 mg/dL ??Borderline high: ??150-199 mg/dL ??High: ? 200-499 mg/dL ?Very high: ?? >or= 499 mg/dL Literature References: 1. Expert Panel on Integrated Guidelines for Cardiovascular Health and Risk Reduction in Children and Adolescents. Pediatrics 2011;128:S213 2. NCEP Expert Panel. Circulation 2004;110:227 Current Interpretive Data was last revised on 2018. Testing performed by: [address] [address] HDL 50 >=40 mg/dL [facility] Comment: Interpretive Data Ages < or = 19 years ??Acceptable: ? >45 mg/dL ??Borderline low: ?? 40-45 mg/dL ??Low: ? <40 mg/dL Ages > or = 20 years ??Desirable: ?>or= 60 mg/dL ??Low: ? <40 mg/dL Literature References: 1. Expert Panel on Integrated Guidelines for Cardiovascular Health and Risk Reduction in Children and Adolescents. Pediatrics 2011;128:S213 2. NCEP Expert Panel. Circulation 2004;110:227 Current Interpretive Data was last revised on 2018. Testing performed by: [address] [address] LDL, calculated 133(H) <=129 mg/dL [facility] Comment: Interpretive Data Ages < or = 19 years ??Acceptable: ? <110 mg/dL ??Borderline high: ??110-129 mg/dL ??High: ?>or= 130 mg/dL Ages > or = 20 years ??Optimal: ? <100 mg/dL ??Near optimal: ?100-129 mg/dL ??Borderline high: ?? 130-159 mg/dL ??High: ?>160 mg/dL Literature References: 1. Expert Panel on Integrated Guidelines for Cardiovascular Health and Risk Reduction in Children and Adolescents. Pediatrics 2011;128:S213 2. NCEP Expert Panel. Circulation 2004;110:227 Current Interpretive Data was last revised on 2018. Testing performed by: [address] [address] Non-HDL Cholesterol 172 mg/dL [facility] Comment: Interpretive Data Ages < or = 19 years ??Acceptable: ?<120 mg/dL ??Borderline high: ??120-144 mg/dL ??High: ?>145 mg/dL Ages > or = 20 years ??When triglycerides are >200 mg/dL, Non-HDL cholesterol is a secondary target of ? therapy with treatment goals that are 30 mg/dL greater than the LDL cholesterol target. ? Literature References: 1. Expert Panel on Integrated Guidelines for Cardiovascular Health and Risk Reduction in Children and Adolescents. Pediatrics 2011;128:S213 2. NCEP Expert Panel. Circulation 2004;110:227 Current Interpretive Data was last revised on 2018. Testing performed by: [address] [address] Chol/HDL ratio 4 [facility] Comment:Testing performed by : [address] [address] Blood 05/10/2024 9:28 AM CDT 05/10/2024 11:45 AM CDT us Davin Mcgrath MD LAB BLOOD ORDERABLES Fin al Result Performing Organization Address City/[facility] Co de Phone Number JE[facility] [address] [place] [address] * Thyroid Function [place] (05/10/2024 9:28 AM CDT) TSH 2.35 0.30 - 4.20 mcIUnit/mL Comment:Testing performed by : [facility], [address] [place] [address]., [address] Blood 05/10/2024 9:28 AM CDT 05/10/2024 11:45 AM CDT Davin Mcgrath MD LAB BLOOD ORDERABLES Fin al Result Performing Organization Address [facility] de Phone Number JEFF [address] [place] [address] documented in this encounter Visit Diagnoses Diagnosis Annual physical exam- Primary Routine general medical examination at a health care facility Hypertension, essential Unspecified essential hypertension ARJUN (generalized anxiety disorder) Generalized anxiety disorder Moderate episode of recurrent major depressive disorder (HCC) Non-seasonal allergic rhinitis due to other allergic trigger Acute nasopharyngitis Acute nasopharyngitis (common cold) Class 3 severe obesity due to excess calories with serious comorbidity and body mass index (BMI) of 40.0 to 44.9 in adult (HCC) Encounter for screening mammogram for malignant neoplasm of breast documented in this encounter Discontinued Medications Medication Sig Discontinue Reason Start Date End Da te lisinopriL (PRINIVIL,ZESTRIL) 40 mg tabletIndications:Hypert ension, essential Take 1 tablet (40 mg total) by mouth daily Reorder 06/24/2023 12/25/2023 documented as of this encounter Care Teams Bread [place] Relationship Specialty Start Date End Date Davin Mcgrath MD [address] [place] [address] PCP - General Family Medicine 04/30/22 Bill Stoner MD [address] [facility] [address] [place] [address] 02/14/21 documented as of this encounter
--- OUTSIDE RECORDS SUMMARY | 2024-11-12 11:34 | XMS_ITS | Encounter Summary ---
Author Organization [facility] Healthcare Address [address] [place] [address] Care Team Providers Care Parts Driver Name Role Phone Bill Stoner MD Unavailable [phone] Davin Mcgrath MD Primary Care Provider + Reason for Visit * Reason Comments Follow-up 6mo checkup, home Bp cuff was 177/98 Weight Management Wants to discuss Oze mpic or Wegovy Encounter Details Date Type Department Care Team (Late st Contact Info) Description 06/24/2024 3:45 PM CDT Office Visit [facility] Primary Care [address] [place] [phone] Davin Mcgrath MD [address] [place] [phone] Hypertension, essential (Primary Dx); Non-seasonal allergic rhinitis due to other allergic trigger; Need for vaccination; Class 3 severe obesity due to excess calories with serious comorbidity and body mass index (BMI) of 40.0 to 44.9 in adult (HCC); Hepatic steatosis Social History Tobacco Use Types Packs/Day Years Used Date Smoking Tobacco: Never Smokeless Tobacco: Never Tobacco Cessation:Counseling Given: Not Answered Alcohol Use Standard Drinks/Week Comments Not Currently [...] on file 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 Gender Identity Not on file Sexual Orientation Not on file documented as of this encounter Last Filed Vital Signs Vital Sign Reading Time Taken Comments Blood Pressure 138/86 06/24/2024 3:33 PM CDT Pulse 89 06/24/2024 3:33 PM CDT Temperature 36.2 ??C (97.1 ??F) 06/24/2024 3:33 PM CD T Respiratory Rate 16 06/24/2024 3:33 PM CDT Oxygen Saturation 96% 06/24/2024 3:33 PM CDT Inhaled Oxygen Concentration - - Weight 97.8 kg (215 lb 9.6 oz) 06/24/2024 3:33 P M CDT Height 154.9 cm (5' 1 ) 06/24/2024 3:33 PM CDT Body Mass Index 40.74 06/24/2024 3:33 PM CDT documented in this encounter Ordered Prescriptions Prescription Sig Dispense Quantity Refills Last Filled Start Date End Date lisinopriL (PRINIVIL,ZESTRIL) 40 mg tabletIndications:H ypertension, essential Take 1 tablet (40 mg total) by mouth daily 90 tablet 3 06/24/2024 semaglutide (Wegovy) 0.25 mg/0.5 mL auto-injectorIndica tions:Weight Loss Management for Obese Patient (BMI >= 30) Inject 0.5 mL (0.25 mg total) under the skin every 7 days 2 mL 06/24/2024 documented in this encounter Progress Notes * Davin Mcgrath MD - 06/24/2024 3:45 PM CDT Images from the original note were not included. Subjective/Objective Patient ID: Mojgan Neves is a 59 y.o. female. Chief Complaint Follow-up (6mo checkup, home Bp cuff was 177/98) and Weight Management (Wants to discuss Ozempic orWegovy ) Vitals: 06/24/24 1533 BP: 138/86 BP Location: Left arm Patient Position: Sitting Pulse: 89 Resp: 16 Temp: 36.2 ??C (97.1 ??F) TempSrc: Temporal SpO2: 96% Weight: 97.8 kg (215 lb 9.6 oz) Height: 154.9 cm (5' 1 ) Wt Readings from Last 3 Encounters: 06/24/24 97.8 kg (215 lb 9.6 oz) 12/25/23 96.2 kg (212 lb) 06/24/23 97.2 kg (214 lb 3.2 oz) HPI: Mojgan Neves is a 59 y.o. female here today for the following concerns: F/u chronic conditions - BP well controlled. Interested in weight loss medication wegovy. Exercising regularly and eating well. Chronic Medical Conditions: Hypertension - lisinopril 40mg daily Depression/ARJUN - previously on cymbalta 30mg daily Allergic Rhinitis - previously on flonase daily Elevated alk phos - pos GGT, liver with hepatic steatosis. Hepatic Steatosis - working on weight loss. Health Maintenance: - Colonoscopy (45-75): age 50 - normal; due 2024 - Tobacco history: Never used - Exercise: occasional - Mammogram (50-74): 2020 - Pap (21-65): 2020 Specialists Involved in Care: - Radio News Writer - Dr Davila Health Maintenance Topic Date Due Cervical Cancer Screening Never done Breast Cancer Screening-Mammogram Never done Hepatitis C Screening Never done DTaP/Tdap/Td Vaccine (1 - Tdap) Never done Hepatitis B Screening Never done Zoster Vaccine (2 of 2) 12/31/2022 Covid-19 Vaccine (3 - 2022- season) 2023 Influenza Vaccine (1) 07/03/2024 Depression Screening 12/25/2024 Regular Well Visit/Exam 18-64 12/25/2024 Colon [...] pain, constipation, diarrhea, nausea and vomiting. Neurological: Negative for headaches. Psychiatric/Behavioral: Negative for dysphoric mood. The patient is not nervous/anxious. Physical Exam Vitals reviewed. Constitutional: Appearance: She is well-developed. HENT: Head: Normocephalic and atraumatic. Cardiovascular: Rate and Rhythm: Normal rate and regular rhythm. Heart sounds: Normal heart sounds. No murmur heard. No friction rub. No gallop. Pulmonary: Effort: Pulmonary effort is normal. No respiratory distress. Breath sounds: Normal breath sounds. No wheezing or rales. Skin: General: Skin is warm and dry. Neurological: General: No focal deficit present. Mental Status: She is alert and oriented to person, place, and time. Psychiatric: Mood and Affect: Mood normal. Behavior: Behavior normal. Thought Content: Thought content normal. Judgment: Judgment normal. Assessment/Plan Diagnoses and all orders for this visit: Hypertension, essential (Primary) Assessment & Plan: - stable - continue lisinopril Non-seasonal allergic rhinitis due to other allergic trigger Assessment & Plan: - poor control - continue jr benitez - pt to consider allergy referal Need for vaccination - Varicella-zoster HZV IM - Tdap vaccine greater than or equal to 7yo IM Class 3 severe obesity due to excess calories with serious comorbidity and body mass index (BMI) of40.0 to 44.9 in adult (HCC) Assessment & Plan: - uncontrolled despite diet and exercise changes, now with hepatic steatosis - start wegovy - discussed the risks/benefits/side effects of medication - f/u in 2 mo Orders: - semaglutide (Wegovy) 0.25 mg/0.5 mL auto-injector; Inject 0.5 mL (0.25 mg total) under the skin every 7 days Orders Placed This Encounter Procedures Varicella-zoster HZV IM Tdap vaccine greater than or equal to 7yo IM *This note is dictated using [employer] voice recognition software, variances in spelling and vocabulary are possible and unintentional.* Davin Mcgrath MD documented in this encounter Miscellaneous Notes * Assessment & Plan Note - Davin Mcgrath MD - 06/24/2024 4:11 PM CDT Associated Problem(s): Class 3 severe obesity due to excess calories with serious comorbidity and body mass index (BMI) of 40.0 to 44.9 in adult (HCC) - uncontrolled despite diet and exercise changes, now with hepatic steatosis - start wegovy - discussed the risks/benefits/side effects of medication - f/u in 2 mo * Assessment & Plan Note - Davin Mcgrath MD - 06/24/2024 4:10 PM CDT Associated Problem(s): Allergic rhinitis due to allergen - poor control - continue jr benitez - pt to consider allergy referal * Assessment & Plan Note - Davin Mcgrath MD - 06/24/2024 4:10 PM CDT Associated Problem(s): Hypertension, essential - stable - continue lisinopril documented in this encounter Plan of Treatment Not on file documented as of this encounter Visit Diagnoses Diagnosis Hypertension, essential- Primary Unspecified essential hypertension Non-seasonal allergic rhinitis due to other allergic trigger Need for vaccination Need for prophylactic vaccination and inoculation against unspecified single disease Class 3 severe obesity due to excess calories with serious comorbidity and body mass index (BMI) of 40.0 to 44.9 in adult (HCC) Hepatic steatosis Other chronic nonalcoholic liver disease documented in this encounter Discontinued Medications Medication Sig Discontinue Reason Start Date End Da te lisinopriL (PRINIVIL,ZESTRIL) 40 mg tabletIndications:Hypert ension, essential Take 1 tablet (40 mg total) by mouth daily Reorder 12/25/2023 06/24/2024 documented as of this encounter Historical Medications * This list may reflect changes made after this encounter. pseudoephedrine (SUDAFED) 60 mg tabletIndication s:Nasal Congestion Take 1 tablet (60 mg total) by mouth every 4 (four) hours as needed for congestion OTC added in this encounter Orders Immunization/Injection Count Last Ordered Date First Ordered Date TDAP VACCINE GREATER THAN OR EQUAL TO 7YO IM 1 06/24/2024 ZOSTER (SHINGLES) HZV IM 1 06/24/2024 documented in this encounter Care Teams Parts Driver Relationship Specialty Start Date End Date Davin Mcgrath MD [facility] [address] PCP - General Family Medicine 04/30/22 Bill Stoner MD [address] [address] 02/14/21 documented as of this encounter
--- OUTSIDE RECORDS SUMMARY | 2024-11-12 11:34 | XMS_ITS | Encounter Summary ---
Author Organization [facility] Healthcare Address [address] [place] [address] Care Team Providers Care Automotive Lube Technician Name Role Phone Bill Stoner MD Unavailable Daivn Mcgrath MD Primary Care Provider + Reason for Referral * Diagnostic Imaging (Routine) - Closed Specialty Diagnoses / Procedures Referred By Contac t Referred To Contact Diagnoses Elevated alkaline phosphatase level Procedures US Davin Patel MD [address] [place] [address] Phone: tel: fax: [address] [phone] Referral ID Status Reason Start Date Expiration Date Visits Re quested Visits Authorized [id number] Closed 06/22/2023 07/21/2024 1 1 Reason for Visit * Diagnostic Imaging (Routine) - Closed Specialty Diagnoses / Procedures Referred By Antonino ramirez Referred To Contact Diagnoses Elevated alkaline phosphatase level Procedures US Davin Patel MD [address] [place] [address] Phone: tel: fax: [address] [phone] Referral ID Status Reason Start Date Expiration Date Visits Re quested Visits Authorized [id number] Closed 06/22/2023 07/21/2024 1 1 Encounter Details Date Type Department Care Team (Latest Contact Info) Description 07/08/2023 8:39 AM CDT - 07/08/2023 11:59 PM CDT Hospital Encounter [place] [id number] [place] [address] Elevated alkaline phosphatase level Discharge Disposition: Discharge to home or self care Social History Tobacco Use Types Packs/Day Years [...] points, staff should administer the PHQ-9) 0 11/05/2022 Comments No Sex and Gender Information Value Date Recorded Sex Assigned at Not on file 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 Gender Identity Not on file Sexual Orientation Not on file documented as of this encounter Medications at Time of Discharge fexofenadine ([place]) 180 mg tabletIndication s:Non-seasonal allergic rhinitis due to other allergic trigger Take 1 tablet (180 mg total) by mouth daily as needed (allergies) 90 tablet 3 11/05/2022 fluticasone propionate (FLONASE) 50 mcg/actuation nasal sprayIndications :Non-seasonal allergic rhinitis due to other allergic trigger Administer 1 spray into each nostril daily 3 each 3 11/05/2022 lisinopriL (PRINIVIL,ZESTRI L) 40 mg tabletIndication s:Hypertension, essential Take 1 tablet (40 mg total) by mouth daily 90 tablet 3 06/24/2023 4 documented as of this encounter Discharge Disposition Disposition Code Departure Means Destination Discharge to home or self care documented in this encounter Miscellaneous Notes * Result Encounter Note - Davin Mcgrath MD - 07/08/2023 11:59 PM CDT Your ultrasound shows gall stones in the gallbladder and fat in your liver. The elevated liver enzymes are likely due to this. Weight loss will help improve your liver health. If you are not having symptoms of pain in your abdomen then you do not need to have the gallbladder out but may need to have it out in the future if a gallstone blocks your bile duct. If you would like to discuss having thegallbladder removed with a surgeon we can refer you to one. documented in this encounter Plan of Treatment Not on file documented as of this encounter Procedures Procedure Name Priority Date/Time Associated Diagnosis Comments US RUQ Schedule Routine, Read Routine (OP Routine) 07/08/2023 9:06 AM CDT Elevated alkaline phosphatase level documented in this encounter Results * US RUQ (07/08/2023 9:06 AM CDT) Anatomical Region Laterality Modality Abdomen N/A Ultrasound 07/08/2023 6:49 PM CDT Narrative 07/08/2023 6:50 PM CDT EXAM DESCRIPTION: ?? US RUQ REASON FOR STUDY: elevated alk phos, 58 yo F with chronic elevation to alk phos, elevated GGT. Please evaluate for hepatobiliary cause. ?? TECHNIQUE: Ultrasound of the right upper quadrant of the abdomen was performed with grayscale and color Doppler. COMPARISON: None. FINDINGS: PANCREAS: ??Visualized portions of the pancreas are within normal limits. Portions of the pancreatic body and tail are obscured due to bowel gas. LIVER: The liver is increased ??in echogenicity. ??Liver measures ??15.6 ??cm. No focal hepatic lesions are seen. Antegrade direction of flow shown in the main portal vein. GALLBLADDER: ??Large echogenic shadowing gallstone. ??No gallbladder wall thickening or pericholecystic fluid. No positive sonographic Whiteside's sign reported. BILIARY: There is no intrahepatic biliary ductal dilatation. The common bile duct measures ??0.5 ??cm in diameter. RIGHT KIDNEY: Right kidney is ??10.8 ??cm in length. There is no hydronephrosis. The echogenicity is ??normal. OTHER: ??No other significant finding. IMPRESSION: Cholelithiasis with no secondary features of acute cholecystitis. Hepatic steatosis. THIS IS AN ELECTRONICALLY VERIFIED FINAL REPORT 07/08/2023 6:50 PM - Electronically signed by ??Moi Cohn M.D. CH: CH D: ??07/08/2023 6:50 PM T: ??07/08/2023 6:50 PM Report ID: [id number] Reading Location: ??[id number] Procedure Note Moi Cohn Jr., MD - 07/08/2023 EXAM DESCRIPTION: US RUQ REASON FOR STUDY: elevated alk phos, 58 yo F with chronic elevation to alk phos, elevated GGT. Please evaluate for hepatobiliary cause. TECHNIQUE: Ultrasound of the right upper quadrant of the abdomen wasperformed with grayscale and color Doppler. COMPARISON: None. FINDINGS: PANCREAS: Visualized portions of the pancreas are within normal limits. Portions of the pancreatic body and tail are obscured due to bowel gas. LIVER: The liver is increased in echogenicity. Liver measures 15.6 cm.No focal hepatic lesions are seen. Antegrade direction of flow shown in themain portal vein. GALLBLADDER: Large echogenic shadowing gallstone. No gallbladder wall thickening or pericholecystic fluid. No positive sonographic Whiteside's sign reported. BILIARY: There is no intrahepatic biliary ductal dilatation. The commonbile duct measures 0.5 cm in diameter. RIGHT KIDNEY: Right kidney is 10.8 cm in length. There is nohydronephrosis. The echogenicity is normal. OTHER: No other significant finding. IMPRESSION: Cholelithiasis with no secondary features of acute cholecystitis. Hepatic steatosis. THIS IS AN ELECTRONICALLY VERIFIED FINAL REPORT 07/08/2023 6:50 PM - Electronically signed by Moi Cohn M.D. CH: CH Report ID: [id number] Reading Location: [id number] us Davin Mcgrath MD IM US PROCEDURES Final Result documented in this encounter Visit Diagnoses Diagnosis Elevated alkaline phosphatase level documented in this encounter Care Teams Automotive Lube Technician Relationship Specialty Start Date End Date Davin Mcgrath MD [address] [address] PCP - General Family Medicine 04/30/22 Bill Stoner MD [address] [facility] [address] [place] [address] 02/14/21 documented as of this encounter
--- OUTSIDE RECORDS SUMMARY | 2024-11-12 11:34 | XMS_ITS | Encounter Summary ---
Author Organization [facility] Healthcare Address [address] [place] [address] Care Team Providers Care Medical Sales Representative Name Role Phone Bill Stoner MD Unavailable [phone] Davin Mcgrath MD Primary Care Provider + Encounter Details Date Type Department Care Team (Late st Contact Info) Description 12/23/2022 Patient Self-Triage [facility] HealthCare/ Physicians [address] [place] [address] [facility], [facility] Provider [facility], [facility] [place] [phone] Social History Tobacco Use Types Packs/Day Years [...] on file 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
--- OUTSIDE RECORDS SUMMARY | 2024-11-12 11:34 | XMS_ITS | Encounter Summary ---
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 Her GGT lab test was also elevated which suggests the cause is in the liver or gall bladder. I recommend a RUQ ultrasound to rule out any liver or gallbladder disease. documented in this encounter Plan of Treatment Not on file documented as of this encounter Procedures Procedure Name Priority Date/Time Associated Diagnosis Comments GAMMA GT Routine 06/22/2023 7:13 AM CDT Elevated alkaline phosphatase level HEPATIC FUNCTION PANEL Routine 06/22/2023 7:13 AM CDT Elevated alkaline phosphatase level documented in this encounter Results * (ABNORMAL) Hepatic function panel (06/22/2023 7:13 AM CDT) Bilirubin, total 0.7 0.1 - 1.2 mg/dL JEFF Comment:Testing performed by : [address] [address] Bilirubin, direct <0.2 0.1 - 0.3 mg/dL JEFF Comment: Lipemic specimen Testing performed by: [address] [address] Protein, pl 7.4 6.5 - 8.5 g/dL JEFF Comment:Testing performed by : [address] [address] Albumin 4.4 3.5 - 5.0 g/dL JEFF Comment:Testing performed by : [address] [address] Alk phos 180(H) 40 - 130 Units/L JEFF Comment:Testing performed by : [address] [address] ALT 41 7 - 45 Units/L JEFF Comment:Testing performed by : [address] [address] AST 33 10 - 45 Units/L JEFF Comment:Testing performed by : [facility], [address] [place]., [address] Blood 06/22/2023 7:13 AM CDT 06/22/2023 9:49 AM CDT Davin Mcgrath MD LAB BLOOD ORDERABLES Fin al Result Performing Organization Address [facility] de Phone Number [address] [place] [address] * (ABNORMAL) Gamma GT (06/22/2023 7:13 AM CDT) GGT 87(H) 5 - 35 Units/L JEFF Blood 06/22/2023 7:13 AM CDT 06/22/2023 11:44 AM CDT us Davin Mcgrath MD LAB BLOOD ORDERABLES Fin al Result Performing Organization Address [facility] de Phone Number [address] [address] documented in this encounter Visit Diagnoses Diagnosis Elevated alkaline phosphatase level documented in this encounter Care Teams Cane Stripper Relationship Specialty Start Date End Date Davin Mcgrath MD [address] [place] [address] PCP - General Family Medicine 04/30/22 Bill Stoner MD [address] [facility] [address] [place] [address] 02/14/21 documented as of this encounter
--- OUTSIDE RECORDS SUMMARY | 2024-11-12 11:34 | XMS_ITS | Encounter Summary ---
Author Organization [facility] Address [address] [address] Care Team Providers Care Er Rn Name Role Phone Bill Stoner MD Unavailable [phone] Davin Mcgrath MD Primary Care Provider + Reason for Visit * Reason Onset Date Comments Forms Request 12/26/2022 Encounter Details Date Type Department Care Team ([facility] st Contact Info) Description 12/26/2022 Telephone [facility] Primary Care [address] [phone] Davin Mcgrath MD [address] [place] [phone] Forms Request Social History Tobacco Use Types Packs/Day Years [...] on file 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 COMPILER * Telephone Encounter - Davin Mcgrath MD - 12/26/2022 5:05 PM MAP COMPILER Ok for note COMPILER * Telephone Encounter - Janette Pearson MA - 12/26/2022 4:57 PM CST Ok for work note? COMPILER * Telephone Encounter - Marva Costa - 12/26/2022 1:28 PM CST Forms Request Form requested: Other Form Form Name: Doctor statement for work - It needs to state that she tested positive for Covid on 12.23.22. She was wanting to return on Thursday but she is still not feeling well today. She stated her jobis contacting her and needing something from her doctor's office. Date needed: JOSELYN - She stated her job is needing something JOSELYN. How is patient delivering to office: NA Who is form being returned to? Patient How to return form to patient:sending to patient as attachment via [employer] Caller's Callback #: [phone] Additional Comments: NA Does message need to be routed? Yes-Action Needed COMPILER documented in this encounter Plan of Treatment Not on file documented as of this encounter Visit Diagnoses Not on filedocumented in this encounter Care Teams Er Rn Relationship Specialty Start Date End Date Davin Mcgrath MD [address] [facility] [address] [place] [address] PCP - General Family Medicine 04/30/22 Bill Stoner MD [address] [facility] [address] [place] [address] 02/14/21 documented as of this encounter
--- OUTSIDE RECORDS SUMMARY | 2024-11-12 11:34 | XMS_ITS | Encounter Summary ---
Author Organization [facility] Address [address] [address] Care Team Providers Care Train Operator Name Role Phone Bill Stoner MD Unavailable [phone] Davin Mcgrath MD Primary Care Provider + Reason for Visit * Reason Comments Follow-up 6mo checkup, stopped taking her medications in December Encounter Details Date Type Department Care Team ([facility] st Contact Info) Description 05/12/2023 8:45 AM CDT Office Visit [facility] Primary Care [address] [address] Davin Mcgrath MD [facility] [address] Hypertension, essential (Primary Dx); ARJUN (generalized anxiety disorder); Moderate episode of recurrent major depressive disorder (HCC); Gastroesophageal reflux disease without esophagitis; Morbid (severe) obesity due to excess calories (HCC); Body mass index 40.0-44.9, adult (CMS/HCC) (HCC); Screening, lipid; Elevated alkaline phosphatase level Social History Tobacco [...] on file 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 Gender Identity Not on file Sexual Orientation Not on file documented as of this encounter Last Filed Vital Signs Vital Sign Reading Time Taken Comments Blood Pressure 156/92 05/12/2023 8:54 AM CDT Pulse 102 05/12/2023 8:41 AM CDT Temperature 36.6 ??C (97.8 ??F) 05/12/2023 8:41 AM CD T Respiratory Rate 20 05/12/2023 8:41 AM CDT Oxygen Saturation 96% 05/12/2023 8:41 AM CDT Inhaled Oxygen Concentration - - Weight 97.9 kg (215 lb 14.4 oz) 05/12/2023 8:41 AM CDT Height 154.9 cm (5' 1 ) 05/12/2023 8:41 AM CDT Body Mass Index 40.79 05/12/2023 8:41 AM CDT documented in this encounter Ordered Prescriptions Prescription Sig Dispense Quantity Refills Last Filled Start Date End Date amLODIPine (NORVASC) 10 mg tabletIndications: Hypertension, essential Take 1 tablet (10 mg total) by mouth daily 90 tablet 3 05/12/2023 06/24/2023 documented in this encounter Progress Notes * Davin Mcgrath MD - 05/12/2023 8:45 AM CDT Images from the original note were not included. Subjective/Objective Patient ID: Mojgan Neves is a 58 y.o. female. Chief Complaint Follow-up (6mo checkup, stopped taking her medications in December ) Vitals: 05/12/23 0841 05/12/23 0854 BP: 164/90 156/92 BP Location: Left arm Patient Position: Sitting Pulse: 102 Resp: 20 Temp: 36.6 ??C (97.8 ??F) TempSrc: Temporal SpO2: 96% Weight: 97.9 kg (215 lb 14.4 oz) Height: 154.9 cm (5' 1 ) Wt Readings from Last 3 Encounters: 05/12/23 97.9 kg (215 lb 14.4 oz) 11/05/22 94.3 kg (208 lb) 04/30/22 92.6 kg (204 lb 1.6 oz) HPI: Mojgan Neves is a 58 y.o. female here today for the following concerns: - f/u for HTN, GERD, depression/ARJUN. Pt was feeling better so stopped all medications. Has not beenexercising so has gained weight. BP high today. Pt states she stopped her meds because she was feeling good and her BP was good. Chronic Medical Conditions: Hypertension - previously on amlodipine 10mg daily and lisinopril 40mg daily GERD - previously on omeprazole 40mg daily Depression/ARJUN - previously on cymbalta 30mg daily Allergic Rhinitis - previously on flonase daily Health Maintenance: - Colonoscopy (45-75): age 50 - normal; due 2024 - Tobacco history: Never used - Exercise: occasional - Mammogram (50-74): 2020 - Pap (21-65): 2020 Specialists Involved in Care: - Unit Technician - Dr Davila Health Maintenance Topic Date Due Cervical Cancer Screening-Pap and HPV Never done Breast Cancer Screening-Mammogram Never done Hepatitis C Screening Never done DTaP/Tdap/Td Vaccine (1 - Tdap) Never done Covid-19 Vaccine (3 - Moderna series) 11/06/2021 Influenza Vaccine (1) 07/03/2023 Depression Screening-PHQ 11/05/2023 Regular Well Visit/Exam 18-64 11/05/2023 Colon Cancer Screening-Colonoscopy 05/14/2025 Zoster Vaccines Completed Pneumococcal vaccine <65 Aged Out Colon Cancer Screening-DNA Stool Discontinued Colon Cancer Screening-CT Colonography Discontinued Colon Cancer Screening-FIT Discontinued Colon Cancer Screening-Sigmoidoscopy Discontinued Colon Cancer Screening-FOBT Discontinued Review of Systems Constitutional: Negative for chills and fever. HENT: Negative for congestion, rhinorrhea and sore throat. Respiratory: Negative for cough and shortness of breath. Cardiovascular: Negative for chest pain. Gastrointestinal: Negative for abdominal pain, constipation, diarrhea, nausea and vomiting. Genitourinary: Negative for difficulty urinating. Neurological: Negative for headaches. Psychiatric/Behavioral: Negative for [...] Hypertension, essential (Primary) Assessment & Plan: - uncontrolled - restart amlodipine 10mg daily - f/u in 1 mo for recheck of BP, likely will need to restart lisinopril but pt is resistant to thattoday. Orders: - amLODIPine (NORVASC) 10 mg tablet; Take 1 tablet (10 mg total) by mouth daily ARJUN (generalized anxiety disorder) Assessment & Plan: -stable off meds Moderate episode of recurrent major depressive disorder (HCC) Assessment & Plan: -stable off meds Gastroesophageal reflux disease without esophagitis Morbid (severe) obesity due to excess calories (HCC) Assessment & Plan: - rec healthy diet and regular exercise Body mass index 40.0-44.9, adult (CMS/HCC) (HCC) No orders of the defined types were placed in this encounter. *This note is dictated using [employer] medical voice recognition software, variances in spelling and vocabulary are possible and unintentional.* Davin Mcgrath MD documented in this encounter Miscellaneous Notes * Assessment & Plan Note - Davin Mcgrath MD - 05/12/2023 8:54 AM CDT Associated Problem(s): Class 3 severe obesity due to excess calories with serious comorbidity and body mass index (BMI) of 40.0 to 44.9 in adult (HCC) - rec healthy diet and regular exercise * Assessment & Plan Note - Davin Mcgrath MD - 05/12/2023 8:53 AM CDT Associated Problem(s): Moderate episode of recurrent major depressive disorder (HCC) -stable off meds * Assessment & Plan Note - Davin Mcgrath MD - 05/12/2023 8:53 AM CDT Associated Problem(s): ARJUN (generalized anxiety disorder) -stable off meds * Assessment & Plan Note - Davin Mcgrath MD - 05/12/2023 8:53 AM CDT Associated Problem(s): Hypertension, essential - uncontrolled - restart amlodipine 10mg daily - f/u in 1 mo for recheck of BP, likely will need to restart lisinopril but pt is resistant to thattoday. * Addendum Note - Davin Mcgrath MD - 05/12/2023 8:45 AM CDTAddended by: DAVIN MCGRATH on: 05/12/2023 09:22 AM Modules accepted: Orders * Addendum Note - Davin Mcgrath MD - 05/12/2023 8:45 AM CDTAddended by: DAVIN MCGRATH on: 05/12/2023 04:44 PM Modules accepted: Orders documented in this encounter Plan of Treatment Not on file documented as of this encounter Results * (ABNORMAL) Gamma GT (06/22/2023 7:13 AM CDT) GGT 87(H) 5 - 35 Units/L JE[facility] Blood 06/22/2023 7:13 AM CDT 06/22/2023 11:44 AM CDT us Davin Mcgrath MD LAB BLOOD ORDERABLES Fin al Result [facility] [address] [facility] Department [place] [address] * (ABNORMAL) Hepatic function panel (06/22/2023 7:13 AM CDT) Pathologist [facility] [place] Bilirubin, total 0.7 0.1 - 1.2 mg/dL JEFF Comment:Testing performed by : [address] [address] Bilirubin, direct <0.2 0.1 - 0.3 mg/dL JEFF Comment: Lipemic specimen Testing performed by: [address] [address] Protein, pl 7.4 6.5 - 8.5 g/dL JEFF Comment:Testing performed by : [address] [address] Albumin 4.4 3.5 - 5.0 g/dL JEFF Comment:Testing performed by : [address] [address] Alk phos 180(H) 40 - 130 Units/L JEFF Comment:Testing performed by : [address] [address] ALT 41 7 - 45 Units/L JEFF Comment:Testing performed by : [address] [address] AST 33 10 - 45 Units/L JEFF Comment:Testing performed by : [address] [address] Blood 06/22/2023 7:13 AM CDT 06/22/2023 9:49 AM CDT Davin Mcgrath MD LAB BLOOD ORDERABLES Fin al Result Performing Organization Address [facility] de Phone Number [address] [address] * TSH reflex to free T4 (05/12/2023 9:31 AM CDT) TSH 1.58 0.30 - 4.20 mcIUnit/mL JEFF Comment:Testing performed by : [address] [address] Blood 05/12/2023 9:31 AM CDT 05/12/2023 11:59 AM CDT Davin Mcgrath MD LAB BLOOD ORDERABLES Fin al Result Performing Organization Address [facility] de Phone Number [address] [address] * (ABNORMAL) Comprehensive metabolic panel (05/12/2023 9:31 AM CDT) Pathologist [facility] [place] Sodium 144 135 - 145 mmol/L JEFF Comment:Testing performed by : [address] [address] Potassium, pl 4.7 3.3 - 4.9 mmol/L JEFF Comment:Testing performed by : [address] [address] Chloride 104 97 - 110 mmol/L JEFF Comment:Testing performed by : [address] [address] CO2 29 22 - 32 mmol/L JEFF Comment:Testing performed by : [address] [address] Anion gap 11 2 - 15 mmol/L JEFF Comment:Testing performed by : [address] [address] BUN 15 6 - 25 mg/dL JEFF Comment:Testing performed by : [address] [address] Creatinine 0.60 0.60 - 1.10 mg/dL JEFF Comment:Testing performed by : [address] [address] Glucose 114 70 - 199 mg/dL JEFF Comment: Interpretive Data Fasting glucose >/= 126 [...] classification and Diagnosis of Diabetes Diabetes Care 202; 46: S19-S40. Current interpretive data was last revised 2022. Testing performed by: [address] [address] Calcium 9.9 8.5 - 10.3 mg/dL [facility] Comment:Testing performed by : [address] [address] Bilirubin, total 0.6 0.1 - 1.2 mg/dL [facility] Comment:Testing performed by : [address] [address] Protein, pl 7.3 6.5 - 8.5 g/dL [facility] Comment:Testing performed by : [address] [address] Albumin 4.4 3.5 - 5.0 g/dL [facility] Comment:Testing performed by : [address] [address] Alk phos 189(H) 40 - 130 Units/L JEFF Comment:Testing performed by : [address] [address] ALT 38 7 - 45 Units/L JEFF Comment:Testing performed by : [address] [address] AST 27 10 - 45 Units/L [facility] Comment:Testing performed by : [facility], [address] [place] [address]., [address] Blood 05/12/2023 9:31 AM CDT 05/12/2023 11:59 AM CDT us Davin Mcgrath MD LAB BLOOD ORDERABLES Fin al Result [facility] [address] [facility] Department [place] [address] * (ABNORMAL) Lipid panel (05/12/2023 9:31 AM CDT) Cholesterol 232(H) 30 - 199 mg/dL JEFF Comment: Interpretive Data Ages < [...] last revised on 2018. Testing performed by: [facility], [address] [place] [address]., [address] Triglycerides 88 <=149 mg/dL JEFF Comment: Interpretive Data Ages [...] last revised on 2018. Testing performed by: [address] [address] HDL 56 >=40 mg/dL JEFF Comment: Interpretive Data Ages [...] last revised on 2018. Testing performed by: [address] [address] LDL, calculated 158(H) <=129 mg/dL JEFF Comment: Interpretive Data Ages [...] last revised on 2018. Testing performed by: [address] [address] Non-HDL Cholesterol 176 mg/dL JEFF Comment: Interpretive Data Ages < [...] last revised on 2018. Testing performed by: [address] [address] Chol/HDL ratio 4 JEFF Comment:Testing performed by : [address] [address] Blood 05/12/2023 9:31 AM CDT 05/12/2023 11:59 AM CDT Davin Mcgrath MD LAB BLOOD ORDERABLES [facility] al Result Performing Organization Address City/State/[facility] Co de Phone Number JEFF [address] [facility] Department [place] [address] documented in this encounter Visit Diagnoses Diagnosis Hypertension, essential- Primary Unspecified essential hypertension ARJUN (generalized anxiety disorder) Generalized anxiety disorder Moderate episode of recurrent major depressive disorder (HCC) Gastroesophageal reflux disease without esophagitis Esophageal reflux Morbid (severe) obesity due to excess calories ([facility]) Body mass index 40.0-44.9, adult (CMS/HCC) (HCC) Body Mass Index 40.0-44.9, adult Screening, lipid Elevated alkaline phosphatase level documented in this encounter Discontinued Medications Medication Sig Discontinue Reason Start Date End Da te DULoxetine DR (CYMBALTA) 30 mg capsuleIndications:ARJUN (generalized anxiety disorder),Moderate episode of recurrent major depressive disorder (HCC) Take 1 capsule (30 mg total) by mouth daily Therapy completed 11/05/2022 05/12/2023 omeprazole (PriLOSEC) 40 mg capsuleIndications:Gastr oesophageal reflux disease without esophagitis Take 1 capsule (40 mg total) by mouth daily Therapy completed 11/05/2022 05/12/2023 amLODIPine (NORVASC) 10 mg tabletIndications:Hypert ension, essential Take 1 tablet (10 mg total) by mouth daily Reorder 11/05/2022 05/12/2023 cyclobenzaprine (FLEXERIL) 5 mg tablet Take 5 mg by mouth 3 (three) times a day as needed for muscle spasms Therapy completed 05/12/2023 documented as of this encounter Care Teams Train Operator Relationship Specialty Start Date End Date Davin Mcgrath MD [address] [address] PCP - General Family Medicine 04/30/22 Bill Stoner MD [address] [address] 02/14/21 documented as of this encounter
--- OUTSIDE RECORDS SUMMARY | 2024-11-12 11:34 | XMS_ITS | Encounter Summary ---
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 * Telephone Encounter - Janette Pearson MA - 05/15/2023 8:25 AM CDT ----- Message from Davin Mcgrath MD sent at 05/15/2023 8:19 AM CDT ----- Please call the patient regarding her result. Your electrolytes and kidney function are normal. Your alkaline phosphatase level is high and has increased from previous levels. I recommend getting a fasting repeat lab test as well as a GGT lab test to determine if the Alk Phos elevation is from your bones or your liver. Labs have been ordered. Your thyroid hormone level is normal. Your cholesterol is high. I recommend working on a diet that is high in fresh fruits and vegetables, whole grains and fatty fish such as salmon (baked). Try to avoid processed foods. Try to increase your daily exercise. documented in this encounter Plan of Treatment Not on file documented as of this encounter Visit Diagnoses Not on filedocumented in this encounter Care Teams Activity Aide Relationship Specialty Start Date End Date Davin Mcgrath MD [address] [address] PCP - General Family Medicine 04/30/22 Bill Stoner MD [address] [place] [address] 02/14/21 documented as of this encounter
--- OUTSIDE RECORDS SUMMARY | 2024-11-12 11:34 | XMS_ITS | Encounter Summary ---
Author Organization [facility] Address [address] [facility] [address] [place] [address] Care Team Providers Care Tax Economist Name Role Phone Bill Stoner MD Unavailable [phone] Davin Mcgrath MD Primary Care Provider + Encounter Details Date Type Department Care Team (Late st Contact Info) Description 12/23/2022 E-Visit [facility] Virtual Care [address] [place] [address] Angie Main NP [address] [address] Your Medications Social History Tobacco Use Types Packs/Day Years [...] on file 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 Gender Identity Not on file Sexual Orientation Not on file documented as of this encounter Ordered Prescriptions Prescription Sig Dispense Quantity Refills Last Filled Start Date End Date nirmatrelvir 300 mg-ritonavir 100 mg (PAXLOVID 300mg-100 mg) tablets,dose pack tablets in a dose pack (EUA) Take 300 mg nirmatrelvir (2 x 150 mg tablets) with 100 mg ritonavir (1 x 100 mg tablet) with all three tablets taken together by mouth twice daily for 5 days 30 tablet 12/24/2022 3 documented in this encounter Miscellaneous Notes * E-Visit Note - Angie Main NP - 12/24/2022 7:02 AM CST Images from the original note were not included. Mojgan Neves 12/24/2022 E-Visit Submission Subjective/Objective: Mojgan Neves contacted the office today via e-visit for COVID-19 evaluation. The patient-submitted questionnaire was assessed for pertinent information and the patient's problem list, medication list, and allergies were reviewed as part of the e-visit. The chart was updated to identify any changes in these areas. Assessment: Diagnosis Plan 1. COVID-19 virus infection Plan: The patient was given information regarding any new medication(s) prescribed, if applicable, as well as any onnn-caw-[id number] remedies. She was given instructions regarding follow up and timeframe if symptoms worsen or don???t improve. These instructions were included in the Spoqa message reply tothe patient. Patient Instructions were included in the message reply to patient. My total encounter time on 12/24/2022 was 5 minutes which was spent in the activities documented inthe note. New Medications Ordered This Visit nirmatrelvir 300 mg-ritonavir 100 mg (PAXLOVID 300mg-100 mg) tablets,dose pack tablets in a dose pack (EUA) Sig: Take 300 mg nirmatrelvir (2 x 150 mg tablets) with 100 mg ritonavir (1 x 100 mg tablet) with all three tablets taken together by mouth twice daily for 5 days Dispense: 30 tablet Refill: 0 Patient met EUA criteria. For locations that stock COVID therapies, visit [email or web address] Order Specific Question: The patient has has mild to moderate COVID-19 Answer: Yes Order Specific Question: The patient is able to start this therapy within 5 days of symptom onset Answer: Yes Order Specific Question: Date of symptom onset: Answer: 12/23/2022 Order Specific Question: Paxlovid has renal dosing. Does this patient have an eGFR > 60 mL/min? Answer: Yes Order Specific Question: Paxlovid is not recommended in patients with severe hepatic dysfunction (Child-Ordoñez Class C). Does this patient have normal liver function? Answer: Yes Order Specific Question: The Fact Sheet for Patients has been communicated and patient agrees to therapy Answer: Yes Angie Main NP ING ANODE WORKER documented in this encounter Plan of Treatment Not on file documented as of this encounter Visit Diagnoses Diagnosis COVID-19 virus infection- Primary documented in this encounter Care Teams Tax Economist Relationship Specialty Start Date End Date Davin Mcgrath MD [facility] [address] PCP - General Family Medicine 04/30/22 Bill Stoner MD [address] [facility] [address] [place] [address] 02/14/21 documented as of this encounter
--- OUTSIDE RECORDS SUMMARY | 2024-11-12 11:34 | XMS_ITS | Encounter Summary ---
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 * Telephone Encounter - Janette Pearson MA - 06/30/2024 9:38 AM CDT Prior auth was denied, weight loss meds are not covered under her pharmacy benefit. * Telephone Encounter - Janina Murillo - 06/30/2024 9:37 AM CDT Call Back Caller???s Concern: Patient called to follow up, states she hasn't recvd the medication yet. Also states the pharmacy called to tell her it was ready but it actually wasn't when she went to pick it up. Said she will follow up again in another day. Does message need to be routed? No * Telephone Encounter - Janette Pearson MA - 06/29/2024 4:57 PM CDT Prior auth for [employer] submitted to covermymeds documented in this encounter Plan of Treatment Not on file documented as of this encounter Visit Diagnoses Not on filedocumented in this encounter Care Teams Birth Attendant Relationship Specialty Start Date End Date Davin Mcgrath MD [facility] [address] PCP - General Family Medicine 04/30/22 Bill Stoner MD [address] [facility] [address] [place] [address] 02/14/21 documented as of this encounter
--- OUTSIDE RECORDS SUMMARY | 2024-11-12 11:34 | XMS_ITS | Encounter Summary ---
Author Organization 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 Your thyroid hormone level is normal. Your [...] Procedure Name Priority Date/Time Associated Diagnosis Comments EGFR Routine 05/10/2024 9:28 AM CDT Annual physical exam THYROID FUNCTION CASCADE Routine 05/10/2024 9:28 AM CDT Annual physical exam LIPID PANEL Routine 05/10/2024 9:28 AM CDT Annual physical exam COMPREHENSIVE METABOLIC PANEL Routine 05/10/2024 9:28 AM CDT Annual physical exam documented in this encounter Results * eGFR (05/10/2024 9:28 AM CDT) eGFR >90 >=60 mL/min/1. 73 m2 Comment: Interpretive Data Reference Interval Normal ?>/= 90 mL/min/1.73m2 Mildly decreased* ? 60 - 89 mL/min/1.73m2 Mildly to moderately decreased ?45 - 59 mL/min/1.73m2 Moderately to severely decreased ??30 - 44 mL/min/1.73m2 Severely decreased ?15 - 29 mL/min/1.73m2 Kidney Failure ?< 15 ??mL/min/1.73m2 *Relative to young adult level Estimated glomerular filtration rate is determined by the 2020 CKD-EPI equation recommended by the National Kidney Foundation (A Unifying Approach to GFR Estimation: Recommendations of the NKF-ASK Task Force on Reassessing the Inclusion of Race in Diagnosing Kidney Disease, JASN 2020). The CKD-EPI equation should not be used for patients with unstable renal function and has not been validated in children and those over 70. Current interpretive data was last reviewed 2021. Testing performed by: [address] [address] Blood 05/10/2024 9:28 AM CDT 05/10/2024 11:45 AM CDT Davin Mcgrath MD LAB BLOOD ORDERABLES Fin al Result Performing Organization Address [facility] de Phone Number [address] [email or web address] [place] [address] * Thyroid Function [place] (05/10/2024 9:28 AM CDT) TSH 2.35 0.30 - 4.20 mcIUnit/mL Comment:Testing performed by : [address] [address] Blood 05/10/2024 9:28 AM CDT 05/10/2024 11:45 AM CDT Davin Mcgrath MD LAB BLOOD ORDERABLES Fin al Result Performing Organization Address [facility] de Phone Number [address] [place] [address] * (ABNORMAL) Lipid panel (05/10/2024 9:28 AM CDT) Cholesterol 222(H) 30 - 199 mg/dL Comment: [...] last revised on 2018. Testing performed by: [facility], [address] [place] [address]., [address] Triglycerides 193(H) <=149 mg/dL JEFF TRISTAN Comment: Interpretive Data Ages < or = [...] last revised on 2018. Testing performed by: [address] [address] HDL 50 >=40 mg/dL JEFF TRISTAN Comment: Interpretive Data Ages < or = [...] last revised on 2018. Testing performed by: [address] [address] LDL, calculated 133(H) <=129 mg/dL JEFF Comment: [...] last revised on 2018. Testing performed by: [address] [address] Non-HDL Cholesterol 172 mg/dL JEFF Comment: Interpretive [...] last revised on 2018. Testing performed by: [address] [address] Chol/HDL ratio 4 JEFF Comment:Testing performed by : [address] [address] Blood 05/10/2024 9:28 AM CDT 05/10/2024 11:45 AM CDT us Davin Mcgrath MD LAB BLOOD ORDERABLES Fin al Result [facility] Department [place] [address] * (ABNORMAL) Comprehensive metabolic panel (05/10/2024 9:28 AM CDT) Sodium 141 135 - 145 mmol/L Comment:Testing performed by : [address] [address] Potassium, pl 4.8 3.3 - 4.9 mmol/L JEFF Comment:Testing performed by : [address] [address] Chloride 102 97 - 110 mmol/L JEFF Comment:Testing performed by : [address] [address] CO2 27 22 - 32 mmol/L JEFF Comment:Testing performed by : [address] [address] Anion gap 12 2 - 15 mmol/L JEFF Comment:Testing performed by : [address] [address] BUN 12 6 - 25 mg/dL JEFF Comment:Testing performed by : [address] [address] Creatinine 0.70 0.60 - 1.10 mg/dL JEFF Comment:Testing performed by : [address] [address] Glucose 112 70 - 199 mg/dL JEFF Comment: Interpretive [...] was last revised 2022. Testing performed by: [address] [address] Calcium 9.4 8.5 - 10.3 mg/dL JEFF Comment:Testing performed by : [address] [address] Bilirubin, total 0.6 0.1 - 1.2 mg/dL JEFF Comment:Testing performed by : [address] [address] Protein, pl 6.8 6.5 - 8.5 g/dL JEFF Comment:Testing performed by : [address] [address] Albumin 4.3 3.5 - 5.0 g/dL JEFF Comment:Testing performed by : [address] [address] Alk phos 173(H) 40 - 130 Units/L JEFF Comment:Testing performed by : [address] [address] ALT 31 7 - 45 Units/L JEFF Comment:Testing performed by : [address] [address] AST 26 10 - 45 Units/L JEFF Comment:Testing performed by : [address] [address] Blood 05/10/2024 9:28 AM CDT 05/10/2024 11:45 AM CDT us Davin Mcgrath MD LAB BLOOD ORDERABLES Fin al Result JEFF [address] [place] [address] Department [place] [address] documented in this encounter Visit Diagnoses Diagnosis Annual physical exam Routine general medical examination at a health care facility documented in this encounter Care Teams Bistro Attendant Relationship Specialty Start Date End Date Davin Mcgrath MD [address] [facility] [address] [place] [address] PCP - General Family Medicine 04/30/22 Bill Stoner MD [address] [facility] [address] [place] [address] 02/14/21 documented as of this encounter
--- OUTSIDE RECORDS SUMMARY | 2024-11-12 11:34 | XMS_ITS | Encounter Summary ---
Author Organization [facility] Address [address] [address] Care Team Providers Care Rn New Graduate Name Role Phone Bill Stoner MD Unavailable [phone] Davin Mcgrath MD Primary Care Provider + Reason for Visit * Reason Comments Follow-up Facial Pain Left side of face is tender since the , left ear hurts, sinuses are bothering her, used neti pot twice today which has helped a little Encounter Details Date Type Department Care Team (Late st Contact Info) Description 06/24/2023 8:00 AM CDT Office Visit [facility] Primary Care [address] [place] [phone] Davin Mcgrath MD [address] [place] [address] Hypertension, essential (Primary Dx); Acute non-recurrent maxillary sinusitis; Elevated alkaline phosphatase level; Class 3 severe obesity due to excess calories with serious comorbidity and body mass index (BMI) of 40.0 to 44.9 in adult (HCC) Social History Tobacco Use Types Packs/Day Years [...] on file 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 Gender Identity Not on file Sexual Orientation Not on file documented as of this encounter Last Filed Vital Signs Vital Sign Reading Time Taken Comments Blood Pressure 126/80 06/24/2023 8:04 AM CDT Pulse 80 06/24/2023 8:04 AM CDT Temperature 37 ??C (98.6 ??F) 06/24/2023 8:04 AM CDT Respiratory Rate 18 06/24/2023 8:04 AM CDT Oxygen Saturation 97% 06/24/2023 8:04 AM CDT Inhaled Oxygen Concentration - - Weight 97.2 kg (214 lb 3.2 oz) 06/24/2023 8:04 A M CDT Height 154.9 cm (5' 1 ) 06/24/2023 8:04 AM CDT Body Mass Index 40.47 06/24/2023 8:04 AM CDT documented in this encounter Ordered Prescriptions Prescription Sig Dispense Quantity Refills Last Filled Start Date End Date amoxicillin-clavul anate (AUGMENTIN) 875-125 mg per tabletIndications: Acute non-recurrent maxillary sinusitis Take 1 tablet by mouth 2 (two) times a day for 10 days 20 tablet 06/24/2023 07/04/2023 predniSONE (DELTASONE) 20 mg tabletIndications: Anti-inflammatory Take 1 tablet (20 mg) by mouth daily for 5 days 5 tablet 06/24/2023 06/29/2023 lisinopriL (PRINIVIL,ZESTRIL) 40 mg tabletIndications: Hypertension, essential Take 1 tablet (40 mg total) by mouth daily 90 tablet 3 06/24/2023 12/25/2023 documented in this encounter Progress Notes * Davin Mcgrath MD - 06/24/2023 8:00 AM CDT Images from the original note were not included. Subjective/Objective Patient ID: Mojgan Neves is a 58 y.o. female. Chief Complaint Follow-up and Facial Pain (Left side of face is tender since the , left ear hurts, sinuses are bothering her, used neti pot twice today which has helped a little ) Vitals: 06/24/23 0804 BP: 126/80 BP Location: Left arm Patient Position: Sitting Pulse: 80 Resp: 18 Temp: 37 ??C (98.6 ??F) TempSrc: Temporal SpO2: 97% Weight: 97.2 kg (214 lb 3.2 oz) Height: 154.9 cm (5' 1 ) Wt Readings from Last 3 Encounters: 06/24/23 97.2 kg (214 lb 3.2 oz) 05/12/23 97.9 kg (215 lb 14.4 oz) 11/05/22 94.3 kg (208 lb) HPI: Mojgan Neves is a 58 y.o. female here today for the following concerns: - f/u for HTN. Pt currently on lisinopril 40mg daily. BP under good control. Pt not exercising regularly but wants to join a gym in the next few months and start. - Elevated Alk phos - had repeat labs confirming isolated elevated alk phos with elevated GGT. Pt asx. Has been present for several years. - Sinusitis - 1 wk of worsening pain in L frontal/maxillary sinus. Congestion, L ear pain/pressure. Chronic Medical Conditions: Hypertension - lisinopril 40mg daily GERD - previously on omeprazole 40mg daily; sx resolved with diet change Depression/ARJUN - previously on cymbalta 30mg daily; stable off meds Allergic Rhinitis - previously on flonase daily Health Maintenance: - Colonoscopy (45-75): age 50 - normal; due 2024 - Tobacco history: Never used - Exercise: occasional - Mammogram (50-74): 2020 - Pap (21-65): 2020 Specialists Involved in Care: - Rn Hyperbaric - Dr Davila Health Maintenance Topic Date Due Cervical Cancer Screening-Pap and HPV Never done Breast Cancer Screening-Mammogram Never done Hepatitis C Screening Never done DTaP/Tdap/Td Vaccine (1 - Tdap) Never done Covid-19 Vaccine (3 - Moderna series) 11/06/2021 Zoster Vaccine (2 of 2) 12/31/2022 Influenza Vaccine (1) 07/03/2023 Depression Screening-PHQ 11/05/2023 Regular Well Visit/Exam 18-64 11/05/2023 Colon Cancer Screening-Colonoscopy 05/14/2025 Pneumococcal vaccine <65 Aged Out Colon Cancer Screening-DNA Stool Discontinued Colon Cancer Screening-CT Colonography Discontinued Colon Cancer Screening-FIT Discontinued Colon Cancer Screening-Sigmoidoscopy Discontinued Colon Cancer Screening-FOBT Discontinued Review of Systems Constitutional: Negative for chills and fever. HENT: Positive for congestion and sinus pain. Negative for rhinorrhea and sore throat. Respiratory: Negative for cough and shortness of breath. Cardiovascular: Negative for chest pain. Gastrointestinal: Negative for abdominal pain, constipation, diarrhea, nausea and vomiting. Neurological: Positive for headaches. Psychiatric/Behavioral: Negative for dysphoric mood. [...] tablet (40 mg total) by mouth daily Acute non-recurrent maxillary sinusitis Assessment & Plan: - restart jr and flonase - prednisone and augmentin - continue neti pot - f/u prn Orders: - predniSONE (DELTASONE) 20 mg tablet; Take 1 tablet (20 mg) by mouth daily for 5 days - amoxicillin-clavulanate (AUGMENTIN) 875-125 mg per tablet; Take 1 tablet by mouth 2 (two) times aday for 10 days Elevated alkaline phosphatase level Assessment & Plan: - chronic elevation, pos GGT - will check RUQ US for hepatobiliary disease Class 3 severe obesity due to excess calories with serious comorbidity and body mass index (BMI) of40.0 to 44.9 in adult (HCC) No orders of the defined types were placed in this encounter. *This note is dictated using [employer] voice recognition software, variances in spelling and vocabulary are possible and unintentional.* Davin Mcgrath MD documented in this encounter Miscellaneous Notes * Assessment & Plan Note - Davin Mcgrath MD - 06/24/2023 8:33 AM CDT Associated Problem(s): Hypertension, essential - stable - continue current medication * Assessment & Plan Note - Davin Mcgrath MD - 06/24/2023 8:33 AM CDT Associated Problem(s): Elevated alkaline phosphatase level - chronic elevation, pos GGT - will check RUQ US for hepatobiliary disease * Assessment & Plan Note - Davin Mcgrath MD - 06/24/2023 8:32 AM CDT Associated Problem(s): Acute non-recurrent maxillary sinusitis (Resolved 12/23/2023) - restart jr and flonase - prednisone and augmentin - continue neti pot - f/u prn documented in this encounter Plan of Treatment Not on file documented as of this encounter Visit Diagnoses Diagnosis Hypertension, essential- Primary Unspecified essential hypertension Acute non-recurrent maxillary sinusitis Elevated alkaline phosphatase level Class 3 severe obesity due to excess calories with serious comorbidity and body mass index (BMI) of 40.0 to 44.9 in adult (HCC) documented in this encounter Discontinued Medications Medication Sig Discontinue Reason Start Date End Da te amLODIPine (NORVASC) 10 mg tabletIndications:Hypert ension, essential Take 1 tablet (10 mg total) by mouth daily Therapy completed 05/12/2023 06/24/2023 lisinopriL (PRINIVIL,ZESTRIL) 40 mg tabletIndications:Hypert ension, essential Take 1 tablet (40 mg total) by mouth daily Reorder 11/05/2022 06/24/2023 documented as of this encounter Care Teams Rn New Graduate Relationship Specialty Start Date End Date Davin Mcgrath MD [address] [place] [address] PCP - General Family Medicine 04/30/22 Bill Stoner MD [address] [address] 02/14/21 documented as of this encounter
--- OUTSIDE RECORDS SUMMARY | 2024-11-12 11:34 | XMS_ITS | Referral Summary ---
Author Organization [facility] Address [address] [place] [address] Care Team Providers Care Relationship Consultant Name Role Phone Bill Stoner MD Unavailable [phone] Davin Mcgrath MD Primary Care Provider + Encounters Date Type Department Care Team Description 11/08/[address] [facility] Primary Care [facility] [address] [place] [phone] Davin Mcgrath MD from Last 3 Months Allergies No known active allergies Medications fexofenadine (JR) 180 mg tabletIndications:N on-seasonal allergic rhinitis due to other allergic trigger Take 1 tablet (180 mg total) by mouth daily as needed (allergies) 90 tablet 3 11/05/19 23 Active Additional Information Patient not taking.Reported on 06/24/2024 fluticasone propionate (FLONASE) 50 mcg/actuation nasal sprayIndications:No n-seasonal allergic rhinitis due to other allergic trigger Administer 1 spray into each nostril daily 3 each 3 11/05/19 Active guaiFENesin-codeine (GUAITUSS AC) liquid 100-10 mg/5 mLIndications:Acute nasopharyngitis Take 5-10 mL by mouth every 4 (four) hours as needed for cough 120 mL 2 12/26/19 24 Active Additional Information Patient not taking.Reported on 06/24/2024 pseudoephedrine (SUDAFED) 60 mg tabletIndications:N ryan Congestion Take 1 tablet (60 mg total) by mouth every 4 (four) hours as needed for congestion OTC Active semaglutide (Wegovy) 0.25 mg/0.5 mL auto-injectorIndica tions:Weight Loss Management for Obese Patient (BMI >= 30) Inject 0.5 mL (0.25 mg total) under the skin every 7 days 2 mL 06/24/20 Active lisinopriL (PRINIVIL,ZESTRIL) 40 mg tabletIndications:H ypertension, essential Take 1 tablet (40 mg total) by mouth daily 90 tablet 3 06/24/20 Active Active Problems Problem Noted Date Diagnosed Date Irritable bowel syndrome with diarrhea Hepatic steatosis 06/24/2024 Acute nasopharyngitis 12/25/2023 Assessment & Plan (12/25/2023 4:31 PM GRAD INTERN): - prednisone, robitussin - f/u prn Elevated alkaline phosphatase level 06/24/2023 Assessment & Plan (06/24/2023 8:33 AM CDT): - chronic elevation, pos GGT - will check RUQ US for hepatobiliary disease Class 3 severe obesity due t o excess calories with serious comorbidity and body mass index (BMI) of 40.0 to 44.9 in adult 05/12/2023 Assessment & Plan (06/24/2024 4:11 PM CDT): - uncontrolled despite diet and exercise changes, now with hepatic steatosis - start wegovy - discussed the risks/benefits/side effects of medication - f/u in 2 mo Assessment & Plan (12/25/2023 4:31 PM GRAD INTERN): - rec healthy diet and regular exercise Assessment & Plan (05/12/2023 8:54 AM CDT): - rec healthy diet and regular exercise Body mass index 40.0-44.9, adult (CMS/HCC) 05/12 Annual physical exam 11/05/2022 Assessment & Plan (12/25/2023 4:31 PM GRAD INTERN): - Reviewed with the patient BMI, blood pressure, diet, exercise, and encouraged healthy lifestyle choices. - Screened for high risk behaviors, diet and exercise habits, and symptoms of depression. - check screening labs - encouraged regular exercise and weight loss Assessment & Plan (11/05/2022 4:46 PM GRAD INTERN): - Reviewed with the patient BMI, blood pressure, diet, exercise, and encouraged healthy lifestyle choices. - Screened for high risk behaviors, diet and exercise habits, and symptoms of depression. - check screening labs - encouraged regular exercise and weight loss Snoring 11/05/2022 Assessment & Plan (11/05/2022 4:46 PM GRAD INTERN): - uncontrolled, possible ENOCH - rec weight loss - will ref to sleep med - pt to call back when ready to f/u with referral Gastroesophageal reflux disease without esophagi tis 04/30/2022 Assessment & Plan (11/05/2022 4:45 PM GRAD INTERN): - stable - continue current medication Assessment & Plan (04/30/2022 4:45 PM CDT): - stable - continue current medication Hypertension, essential 04/30/2022 Assessment & Plan (06/24/2024 4:10 PM CDT): - stable - continue lisinopril Assessment & Plan (12/25/2023 4:30 PM GRAD INTERN): - stable - continue current medication Assessment & Plan (06/24/2023 8:33 AM CDT): - stable - continue current medication Assessment & Plan (05/12/2023 8:53 AM CDT): - uncontrolled - restart amlodipine 10mg daily - f/u in 1 mo for recheck of BP, likely will need to restart lisinopril but pt is resistant to that today. Assessment & Plan (11/05/2022 4:45 PM GRAD INTERN): - stable - continue current medication Assessment & Plan (04/30/2022 4:45 PM CDT): - stable - continue current medication Allergic rhinitis due to allergen 04/30/2022 Assessment & Plan (06/24/2024 4:10 PM CDT): - poor control - continue flonase, jr - pt to consider allergy referal Assessment & Plan (12/25/2023 4:31 PM GRAD INTERN): - stable - continue current medication Assessment & Plan (11/05/2022 4:46 PM GRAD INTERN): - stable - continue current medication Assessment & Plan (04/30/2022 4:45 PM CDT): - continue flonase - add zyrtec due to ear effusions and eustachian tube dysfunction - f/u prn ARJUN (generalized anxiety disorder) 04/30/2022 Assessment & Plan (12/25/2023 4:30 PM GRAD INTERN): - stable of meds; f/u prn Assessment & Plan (05/12/2023 8:53 AM CDT): -stable off meds Assessment & Plan (11/05/2022 4:46 PM GRAD INTERN): - stable - continue current medication Assessment & Plan (04/30/2022 4:45 PM CDT): - stable - continue current medication Moderate episode of recurrent major depressive d isorder 04/30/2022 Assessment & Plan (12/25/2023 4:31 PM GRAD INTERN): - stable off meds; not interested in meds/counseling at this time - f/u prn Assessment & Plan (05/12/2023 8:53 AM CDT): -stable off meds Assessment & Plan (11/05/2022 4:46 PM GRAD INTERN): - stable - continue current medication Assessment & Plan (04/30/2022 4:45 PM CDT): - stable - continue current medication Resolved Problems Problem Noted Date Diagnosed Date Resolved Date Acute non-recurrent maxillary sinusitis 06/24/2023 12/23/2023 Assessment & Plan (06/24/2023 8:32 AM CDT): - restart jr and flonase - prednisone and augmentin - continue neti pot - f/u prn Immunizations Name Administration Dates Next Due Influenza, Unspecified 12/25/2023(Deferr ed: Other),08/02/2022(Deferred: Patient Refused) Tdap 06/24/2024 ZOSTER Recombinant 06/24/2024,11/05/2022 Social History Tobacco Use Types Packs/Day Years [...] on file 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 Historical Provider GI PROCEDURE ORDERABLES F inal Result from Last 3 Months or Most Recently Relevant to Health Maintenance Insurance [id number] [place] [address] CHOICE PLUS [facility] HMO/PPO Address: [facility] [address] [place] [address] [place] [facility] Care Teams Relationship Consultant Relationship Specialty Start Date End Date Davin Mcgrath MD [facility] [address] PCP - General Family Medicine 04/30/22 Bill Stoner MD [address] [address] [place] [address] 02/14/21
--- OUTSIDE RECORDS SUMMARY | 2024-11-12 11:34 | XMS_ITS | Encounter Summary ---
Author Organization [facility] Healthcare Address [address] [place] [address] Care Team Providers Care Labor Employment Associate Name Role Phone Bill Stoner MD Unavailable [phone] Davin Mcgrath MD Primary Care Provider + Reason for Visit * Reason Onset Date Comments After Hours 12/26/2023 Encounter Details Date Type Department Care Team ([facility] st Contact Info) Description 12/26/2023 Telephone [facility] Primary Care [address] [phone] Davin Mcgrath MD [address] [address] After Hours Social History Tobacco Use Types Packs/Day Years [...] on file 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 Gender Identity Not on file Sexual Orientation Not on file documented as of this encounter Miscellaneous Notes * Telephone Encounter - Davin Mcgrath MD - 12/26/2023 9:35 AM PRINTING BINDERY ASSISTANT Rx sent TING BINDERY ASSISTANT * Telephone Encounter - Lars Calloway - 12/26/2023 9:28 AM CST Contact: Apron Man Alyse @[facility] Patient Provider: Davin Thomas MD Call Back Number: [phone] Patient Name: Mojgan Neves Date of : 1965 Caller Concern: Controlled Substance Robitussin AC does not have in stock, need sent to another pharmacy, request call back Need sent to [address] [place] [address] Tai Chi Instructor: Responses Not Monitored- If Additional Information is Required Call Sent message to Davin Thomas in Epic TING BINDERY ASSISTANT documented in this encounter Plan of Treatment Not on file documented as of this encounter Visit Diagnoses Not on filedocumented in this encounter Care Teams Labor Employment Associate Relationship Specialty Start Date End Date Davin Mcgrath MD [facility] [address] PCP - General Family Medicine 04/30/22 Bill Stoner MD [address] [facility] [address] [place] [address] 02/14/21 documented as of this encounter
--- OUTSIDE RECORDS SUMMARY | 2024-11-12 11:34 | XMS_ITS | Encounter Summary ---
Author Organization [facility] Address [address] [address] Care Team Providers Care Screen Printing Equipment Setter Name Role Phone Bill Stoner MD Unavailable [phone] Davin Mcgrath MD Primary Care Provider + Reason for Referral * Diagnostic Imaging (Routine) - Closed Specialty Diagnoses / Procedures Referred By Contac t Referred To Contact Diagnoses Elevated alkaline phosphatase level Procedures US RUQ Davin Mcgrath MD [address] [place] [id number] Phone: tel: fax: [address] [phone] Referral ID Status Reason Start Date Expiration Date Visits Re quested Visits Authorized [id number] Closed 06/22/2023 07/21/2024 1 1 Encounter Details Date Type Department Care Team (Late st Contact Info) Description 06/22/2023 Orders Only [facility] Primary Care [facility] [phone] Davin Mcgrath MD [address] [place] [phone] Elevated alkaline phosphatase level (Primary Dx) Social History Tobacco Use Types Packs/Day Years [...] on file 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 GGT elevated. Will get RUQ US to r/o hepatobiliary cause. documented in this encounter Plan of Treatment Not on file documented as of this encounter Results * US RUQ (07/08/2023 [...] PM T: ??07/08/2023 6:50 PM Report ID: [id number] Reading Location: ??[id number] Procedure Note Moi Cohn Jr., MD - [...] Electronically signed by Moi Cohn M.D. CH: CIRILO Report ID: [id number] Reading Location: [id number] us Davin Mcgrath MD IM US PROCEDURES Final Result documented in this encounter Visit Diagnoses Diagnosis Elevated alkaline phosphatase level- Primary Elevated alkaline phosphatase level documented in this encounter Care Teams Screen Printing Equipment Setter Relationship Specialty Start Date End Date Davin Mcgrath MD [facility] [address] PCP - General Family Medicine 04/30/22 Bill Stoner MD [address] [facility] [address] [place] [address] 02/14/21 documented as of this encounter
--- OUTSIDE RECORDS SUMMARY | 2024-11-12 11:34 | XMS_ITS | Referral Summary ---
Author Organization [facility] Address [address] [place] [address] Care Team Providers Care Loan Approver Name Role Phone Bill Stoner MD Primary Care Provider Unavail able Source Comments [facility],non-owned Affiliates and Associated Physician Practices is amultiple site organization consisting of ambulatory clinics and hospital sitesin [place], [place], [place] and [place]. This disclosure is being madepursuant to the Care Everywhere program and may not contain all information available regarding this patient. Last updated 18.[facility] Allergies No known active allergies Medications * [...] needed for Cough 30 capsule 08/04/2019 Active Social History Tobacco Use Types Packs/Day Years [...] 08/04/2019 11:15 AM CDT Plan of Treatment Not on file Care Teams Loan Approver Relationship Specialty Start Date End Date Bill Stoner MD PCP - General Internal Medicine 03/02/18
--- OUTSIDE RECORDS SUMMARY | 2024-11-12 11:34 | XMS_ITS | Encounter Summary ---
Author Organization [facility] Address [address] [place] [address] Care Team Providers Care Academic Affairs Director Name Role Phone Bill Stoner MD Primary Care Provider Unavail able Reason for Visit * Reason Comments Rash Encounter Details Date Type Department Care Team (Late st Contact Info) Description 03/02/2018 11:20 AM CDT Office Visit [facility] [address] [phone] Provider, [facility] Contact dermatitis, unspecified contact dermatitis type, unspecified trigger (Primary Dx); Tinea pedis of both feet; Candidal intertrigo; Essential hypertension Social History Tobacco Use Types Packs/Day Years Used Date Smoking Tobacco: Never Smokeless Tobacco: Never Sex and Gender Information Value Date Recorded Sex Assigned at Not on file Gender Identity Not on file Sexual Orientation Not on file documented as of this encounter Last Filed Vital Signs Vital Sign Reading Time Taken Comments Blood Pressure 126/80 03/02/2018 11:19 AM CDT Pulse 68 03/02/2018 11:19 AM CDT Temperature 36.9 ??C (98.5 ??F) 03/02/2018 11:19 AM C DT Respiratory Rate 16 03/02/2018 11:19 AM CDT Oxygen Saturation 99% 03/02/2018 11:19 AM CDT Inhaled Oxygen Concentration - - Weight 88.5 kg (195 lb) 03/02/2018 11:19 AM CDT Height 157.5 cm (5' 2 ) 03/02/2018 11:19 AM CDT Body Mass Index 35.67 03/02/2018 11:19 AM CDT documented in this encounter Patient Instructions * Patient Instructions* Felix Licona APRN-CNP - 03/02/2018 11:36 AM CDT Images from the original note were not included. -Athlete's Foot can be treated with Terbinafine topical applied once or twice to affected area for up to 4 weeks. -Interventions that may help to reduce recurrences include use of desiccating (drying) foot powders, treatment of shoes with antifungal powder, and avoidance of occlusive footwear. -For severe cases some patients may benefit from combining antifungal treament with salicylic acid.Burow's (1% aluminum acetate or 5% aluminum subacetate) wet dressings, applied for 20 minutes two to three times per day, or placing gauze or cotton between toes may be helpful. Athlete's Foot HUMANITIES PROFESSOR: Athlete's foot is a foot infection caused by a fungus. Common signs and symptoms include the following: ?? Cracks or blisters ?? Redness, swelling, itching, or burning ?? Scaly or peeling skin ?? Bad smelling feet ?? Thick, dark skin on the bottoms or sides of your feet ?? Thick, abnormal toenails Seek care immediately if: ?? You have a fever or chills. ?? You have red streaks going up your leg. Contact your healthcare provider if: ?? Your infection spreads or you have a rash on other parts of your body. ?? Your infection is not better in 14 days or completely gone in 90 days. ?? The skin on your foot or leg is red and hot. ?? You have questions or concerns about your condition or care. Treatment: Athlete's foot is usually treated with an antifungal medicine. This medicine may be given as a cream or pill. You may need a doctor's order for this medicine. Take the medicine until it isgone, even if your feet look like they are healed. Prevent the spread of athlete's foot: ?? Prevent the spread of this infection to other parts of your body. When you shower, dry your groin area and other parts of your body before you dry your feet. ?? Keep your feet clean and dry. Wash your feet each day and dry them well, especially between yourtoes. After your feet are dry, put powder on your feet and between your toes. Wear clean cotton or wool socks each day. Put your socks on first so you do not spread the infection to other areas of your body. Wear sandals, canvas tennis shoes, or other shoes that allow air to flow to your feet. Thishelps keep your feet dry. Do not use shoes that are tight, or made of plastic or rubber. ?? Soak your feet in an astringent (drying) solution as directed if you have blisters. You may needto do this for 20 to 30 minutes, 2 times each day to help dry out the blisters. ?? Wear shoes in public areas. Wear shower shoes or sandals in warm, damp areas. This includes shower stalls, near swimming pools, and locker rooms. Do not share socks or shoes. Do not use public swimming pools. Follow up with your healthcare provider as directed: Write down your questions so you remember to ask them during your visits. ?? 2017 [employer] Information is for End User's use only and may not be sold, redistributed or otherwise used for commercial purposes. All illustrations and images included in CareNotes?? are the copyrighted property of [employer]. or [employer]. The above information is an lab aid only. It is not intended as medical advice for individual conditions or treatments. Talk to your doctor, nurse or pharmacist before following any medical regimen to see if it is safe and effective for you. Contact Dermatitis HUMANITIES PROFESSOR: Contact dermatitis is a rash. It develops when you touch something that irritates your skin or causes an allergic reaction. Common signs and symptoms include the following: ?? Red, swollen, painful rash ?? Skin that itches, stings, or ya ?? Dry, scaly, or crusty skin patches ?? Bumps or blisters ?? Fluid draining from blisters Call 911 for any of the following: ?? You have sudden trouble breathing. ?? Your throat swells and you have trouble eating. ?? Your face is swollen. Contact your healthcare provider if: ?? You have a fever. ?? Your blisters are draining pus. ?? Your rash spreads or does not get better, even after treatment. ?? You have questions or concerns about your condition or care. Treatment for contact dermatitis involves removing any irritants or allergens that cause your rash.You may also need medicines to decrease itching and swelling. They will be given as a topical medicine to apply to your rash or as a pill. Manage contact dermatitis: ?? Take short baths or showers in cool water. Use mild soap or soap-free cleansers. Add oatmeal, baking soda, or cornstarch to the bath water to help decrease skin irritation. ?? Avoid skin irritants , such as makeup, hair products, soaps, and cleansers. Use products that donot contain perfume or dye. ?? Apply a cool compress to your rash. This will help soothe your skin. ?? Keep your skin moist. Rub unscented cream or lotion on your skin to prevent dryness and itching.Do this right after a bath or shower when your skin is still damp. Follow up with your healthcare provider as directed: Write down your questions so you remember to ask them during your visits. ?? 2017 [employer] Information is for End User's use only and may not be sold, redistributed or otherwise used for commercial purposes. All illustrations and images included in CareNotes?? are the copyrighted property of [employer] or [employer]. The above information is an lab aid only. It is not intended as medical advice for individual conditions or treatments. Talk to your doctor, nurse or pharmacist before following any medical regimen to see if it is safe and effective for you. Skin Yeast Infection HUMANITIES PROFESSOR: What do I need to know about a skin yeast infection? Yeast is normally present on the skin. Infection happens when you have too much yeast, or when it gets into a cut on your skin. Certain types of mold and fungus can cause a yeast infection. A skin yeast infection can appear anywhere on your skin or nail beds. Skin yeast infections are usually found on warm, moist parts of the body. Examples include between skin folds or under the breasts. Common symptoms include the following: Signs and symptoms will depend on the type of yeast causing the infection, and where the infection is located. ?? Red, scaly skin ?? Changes in skin color, especially a beefy red color ?? Itching, dry skin ?? Painful, cracking skin at the corners of your mouth ?? Thick, discolored, chipping nails ?? Skin lesions that may be red or purple and round ?? Pus bumps Seek care immediately if: ?? You have signs of infection, such as pus, warmth or red streaks coming from the wound, or a fever. Contact your healthcare provider if: ?? Your symptoms worsen or do not get better within 7 to 10 days. ?? You have new or returning signs of a skin yeast infection after treatment. ?? You have questions or concerns about your condition or care. Treatment for a skin yeast infection may include antifungal medicine to treat the fungal infection.The medicine be given as a cream, ointment, or pill. Care for the skin near the infection: You may only have discolored patches of skin, or areas that are dry and flaking. Care for these skin problems as directed by your healthcare provider. If you have painful skin or an open sore, you will need to protect the skin and prevent damage. You will also need to keep the skin dry as much as possible. Ask your healthcare provider how to care for your skin while the infection clears. The following are general guidelines for caring for painful or open skin: ?? Keep the skin clean. Ask your healthcare provider if you should wash with mild soap and water. Do not use soap that contains alcohol. Alcohol can dry and irritate the skin and make symptoms worse.Your baby's healthcare provider may tell you to use diaper cream or ointment when you change his diaper. This will protect the skin and prevent moisture from collecting. ?? Keep the skin dry. Pat the area dry with a towel. Do not rub, because this may irritate the skin. If you have a skin yeast infection between skin folds, lift the top part gently and hold it while you dry between your skin folds. Always dry your feet completely after you swim or bathe, including between your toes. Dry your skin if you are sweating from exercise or exposure to heat. Use a clean towel each time to prevent spreading or continuing the infection. ?? Keep the skin protected. Ask your healthcare provider if you should cover the area with a bandage or leave it open. Check your skin each day to make sure you do not have new or worsening problems.You may need to have someone check the skin if you cannot see the area easily. Prevent another skin yeast infection: ?? Do not share clothing or towels ?? Wear shower shoes if you need to use a public shower ?? Dry your feet completely after you bathe, and apply antifungal powder or cream as directed ?? Put on socks before you get dressed so you do not spread fungus from your feet ?? Wear light clothing that allows air to get to your skin ?? Manage your weight to prevent skin folds where yeast can collect ?? Manage diabetes ?? Change your baby's diaper often, and keep the area clean and dry as much as possible ?? Use a diaper cream or ointment that contains zinc oxide or dimethicone on your baby's diaper area as directed Follow up with your healthcare provider as directed: Write down your questions so you remember to ask them during your visits. ?? 2017 [employer] Information is for End User's use only and may not be sold, redistributed or otherwise used for commercial purposes. All illustrations and images included in CareNotes?? are the copyrighted property of [employer], [employer]. or [employer]. The above information is an lab aid only. It is not intended as medical advice for individual conditions or treatments. Talk to your doctor, nurse or pharmacist before following any medical regimen to see if it is safe and effective for you. documented in this encounter Progress Notes * Felix Licona APRN-CNP - 03/02/2018 11:23 AM CDT Subjective: Mojgan Neves is a 53 y.o. female who presents to clinic today for Chief Complaint Patient presents with ??? Rash . Primary Care Physician is Bill Stoner MD. She states her rash is on the right and left side of torso and right and left hips, and athletes feet bilaterally. Pt state she has dealt with athletes feet for many years on and off, and she doesn't feel like it ever goes away just gets better at times and then worse again. Onset of worsening symptoms was 4 days ago. Just under 2 weeks ago feet started to flair up again. Thursday night got worse, Thursday am feet felt like they were on fire and then she developed the rash on sides. Pt does use the same bath towel for several days. Pt states she alsoused a new scent burst product in her washer when she washed her sheets last week. No other new soaps, lotions or skin care products, foods or medicine. Pt states she is starting to feel itchy under her breast and on her face and neck now also. Appearance: Red itchy rash on bilateral sides of torsoand hips and states it is moderately pruritic and was exposed to None. Other symptoms include None.She has tried hydrocortisone cream, and antibacterial soaps on feet. No fever, no one else at home has same symptoms, no URI symptoms. Past Medical History: Diagnosis Date ??? Hypertension Family History Problem Relation Age of Onset ??? Dementia Mother ??? Other - Hepatic/Liver Father Current Outpatient Prescriptions Medication Sig Dispense Refill ??? LISINOPRIL PO ??? fluconazole (DIFLUCAN) 150 MG tablet Take 1 tablet by mouth once for 1 dose 1 tablet 0 ??? triamcinolone acetonide (KENALOG) 0.1 % ointment Apply to affected area 3 times daily 80 g 0 ??? predniSONE (DELTASONE) 10 MG tablet 5 tab PO QD x 2 days, then 4 tab PO QD x 2 days, 3 tab PO QD x2 days, 2 tab PO QD x 2 days, 1 tab PO QD take 2 days, take with food. 30 tablet 0 No current facility-administered medications for this visit. No Known Allergies Social History Social History ??? Marital status: Unknown Spouse name: N/A ??? Number of children: N/A ??? Years of education: N/A Occupational History ??? Not on file. Social History Main Topics ??? Smoking status: Never Smoker ??? Smokeless tobacco: Never Used ??? Alcohol use Not on file ??? Drug use: Not on file ??? Sexual activity: Not on file Other Topics Concern ??? Not on file Social History Narrative ??? No narrative on file Review of Systems Pertinent items are noted in HPI Constitutional: Negative Eyes: Negative Ears, nose, mouth, and throat: Negative Respiratory: Negative Cardiovascular: Negative Gastrointestinal: Negative Genitourinary:Negative Skin: Positive for red itchy rash on bilateral sides of torso and hips, and athletes feet on bilateral feet, Pt states she is starting to feel itchy under her breast and on her face and neck now also Musculoskeletal:Negative Neurological: Negative Objective: BP 126/80 (BP SITE: LEFT ARM, BP POSITION: SITTING, BP CUFF SIZE: 11) Pulse 68 Temp 98.5 ??F (36.9 ??C) (Oral) Resp 16 Ht 1.575 m (5' 2 ) Wt 88.5 kg (195 lb) SpO2 99% BMI 35.67 kg/m2 Exam General appearance: alert, cooperative, no distress, oriented to person, place, and time, wellappearing Head: normocephalic, without trauma Lungs: breath sounds normal and symmetric; no rales or wheezes Heart: regular rhythm, normal S1 and S2, without murmurs, gallops or rubs Skin: generalized diffuse erythematous maculopapular rash noted on bilateral sides of torso and bilateral sides of hips. No drainage, no bruising, non tender, no edema noted. No rash noted to face orneck area. Bilateral feet: diffuse hyperkeratotic eruption involving the soles and medial and lateral surfaces of the feet, resembling a moccasin distribution. Neurologic: mental status normal; alert and oriented X 3 Assessment: Encounter Diagnoses Name Primary? Tinea pedis of both feet ??? Contact dermatitis, unspecified contact dermatitis type, unspecified trigger Yes ??? Candidal intertrigo ??? Essential hypertension Plan: 1. The diagnosis was discussed with the patient, questions answered. Educational materials provided. See orders. See patient instructions. 2. Orders placed during this encounter are listed below 3. Order placed for PCP if none listed on file -Athlete's Foot can be treated with Terbinafine topical applied once or twice to affected area for up to 4 weeks. -Interventions that may help to reduce recurrences include use of desiccating (drying) foot powders, treatment of shoes with antifungal powder, and avoidance of occlusive footwear. -For severe cases some patients may benefit from combining antifungal treament with salicylic acid.Burow's (1% aluminum acetate or 5% aluminum subacetate) wet dressings, applied for 20 minutes two to three times per day, or placing gauze or cotton between toes may be helpful. Risk of prednisone discussed with patient. Pt consents to treatment. Pt advised to monitor blood pressure daily and notify PCP or go to ER if BP is greater than 160/90. Continue to take your lisinopril as prescribed by your PCP Stop using the new scent booster in your washing machine, recommend re-wash sheets without out today. If symptoms persist or worsen seek medical attention at PCP, heat treatment technician or ED. Advised to use triamcinolone as needed sparingly (pea size amount) discussed risk of thining skin and discoloration if used to often or too much at once. Orders Placed This Encounter ??? fluconazole (DIFLUCAN) 150 MG tablet Sig: Take 1 tablet by mouth once for 1 dose Dispense: 1 tablet Refill: 0 ??? triamcinolone acetonide (KENALOG) 0.1 % ointment Sig: Apply to affected area 3 times daily Dispense: 80 g Refill: 0 ??? predniSONE (DELTASONE) 10 MG tablet Si tab PO QD x 2 days, then 4 tab PO QD x 2 days, 3 tab PO QD x2 days, 2 tab PO QD x 2 days, 1 tab PO QD take 2 days, take with food. Dispense: 30 tablet Refill: 0 No results found for this or any previous visit (from the past 24 hour(s)). documented in this encounter Plan of Treatment Not on file documented as of this encounter Visit Diagnoses Diagnosis Contact dermatitis, unspecified contact dermatitis type, unspecified trigger- Primary Tinea pedis of both feet Candidal intertrigo Candidiasis of skin and nails Essential hypertension documented in this encounter Care Teams Academic Affairs Director Relationship Specialty Start Date End Date Bill Stoner MD PCP - General Internal Medicine 03/02/18 documented as of this encounter
--- OUTSIDE RECORDS SUMMARY | 2024-11-12 11:34 | XMS_ITS | Encounter Summary ---
Author Organization [facility] Address [address] [place] [address] Care Team Providers Care Loan Analyst Name Role Phone Unavailable Primary Care Provider Unavailabl e Encounter Details Date Type Department Care Team (Late st Contact Info) Description 11/06/2020 Lab Requisition [facility] [address] [place] [address] Brilliant, [place] [address] [place] [address] Social History Tobacco Use Types Packs/Day Years Used Date Smoking Tobacco: Never Assessed Comments Unknown Sex and Gender Information Value Date Recorded Sex Assigned at Not on file Legal Sex Female 2:33 PM TELLER HEAD Gender Identity Not on file Sexual Orientation Not on file documented as of this encounter Plan of Treatment Not on file documented as of this encounter Procedures Procedure Name Priority Date/Time Associated Diagnosis Comments SARS-COV-2 PCR [facility] ONLY Routine 11/06/2020 2:46 PM TELLER HEAD documented in this encounter Visit Diagnoses Not on filedocumented in this encounter
--- OUTSIDE RECORDS SUMMARY | 2024-11-12 11:34 | XMS_ITS | Encounter Summary ---
Author Organization [facility] Healthcare Address [address] [place] [address] Care Team Providers Care Carry In Worker Name Role Phone Bill Stoner MD Unavailable [phone] Davin Mcgrath MD Primary Care Provider + Encounter Details Date Type Department Care Team (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 Gender Identity Not on file Sexual Orientation Not on file documented as of this encounter Ordered Prescriptions Prescription Sig Dispense Quantity Refills Last Filled Start Date End Date guaiFENesin-codeine (GUAITUSS AC) liquid 100-10 mg/5 mLIndications:Acute nasopharyngitis Take 5-10 mL by mouth every 4 (four) hours as needed for cough 120 mL 2 12/26/2023 documented in this encounter Plan of Treatment Not on file documented as of this encounter Visit Diagnoses Diagnosis Acute nasopharyngitis Acute nasopharyngitis (common cold) documented in this encounter Discontinued Medications Medication Sig Discontinue Reason Start Date End Da te guaiFENesin-codeine (GUAITUSS AC) liquid 100-10 mg/5 mLIndications:Acute nasopharyngitis Take 5-10 mL by mouth every 4 (four) hours as needed for cough Reorder 12/25/2023 12/26/2023 documented as of this encounter Care Teams Carry In Worker Relationship Specialty Start Date End Date Davin Mcgrath MD [employer] [address] PCP - General Family Medicine 04/30/22 Bill Stoner MD [address] [facility] [address] [place] [address] 02/14/21 documented as of this encounter
--- OUTSIDE RECORDS SUMMARY | 2024-11-12 11:34 | XMS_ITS | Encounter Summary ---
Author Organization [facility] Address [address] [place] [address] Care Team Providers Care Route Supervisor Name Role Phone Bill Stoner MD Primary Care Provider Unavail able Reason for Visit * Reason Onset Date Comments Follow-up 03/04/2018 Encounter Details Date Type Department Care Team (Late st Contact Info) Description 03/04/2018 Telephone [facility] [address] [phone] Ashlee Dacosta Follow-up Social History Tobacco Use Types Packs/Day Years [...] on filedocumented in this encounter Care Teams Route Supervisor Relationship Specialty Start Date End Date Bill Stoner MD PCP - General Internal Medicine 03/02/18 documented as of this encounter
--- OUTSIDE RECORDS SUMMARY | 2024-11-12 11:34 | XMS_ITS | Encounter Summary ---
Author Organization [facility] Address [address] [place] [address] Care Team Providers Care Patient Scheduler Name Role Phone Unavailable Primary Care Provider Unavailabl e Encounter Details Date Type Department Care Team (Late st Contact Info) Description 11/06/2020 3:00 PM CRACKLING PRESS OPERATOR Rapid Evaluation [place] [facility] Community Testing [address] [address] Social History Tobacco Use Types Packs/Day Years Used Date Smoking Tobacco: Never Assessed Comments Unknown Sex and Gender Information Value Date Recorded Sex Assigned at Not on file Legal Sex Female 2:33 PM CRACKLING PRESS OPERATOR Gender Identity Not on file Sexual Orientation Not on file documented as of this encounter Plan of Treatment Not on file documented as of this encounter Visit Diagnoses Not on filedocumented in this encounter
--- OUTSIDE RECORDS SUMMARY | 2024-11-12 11:34 | XMS_ITS | Encounter Summary ---
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 Gender Identity Not on file Sexual Orientation Not on file documented as of this encounter Miscellaneous Notes * Telephone Encounter - Janette Pearson MA - 06/24/2023 8:08 AM CDT Patient informed of lab results and voiced understanding and given the number to call to schedule US * Telephone Encounter - Janette Pearson MA - 06/22/2023 4:24 PM CDT ----- Message from Davin Mcgrath MD sent at 06/22/2023 1:52 PM CDT ----- Please let pt know that her alkaline [...] on filedocumented in this encounter Care Teams Radial Drill Press Set Up Operator Relationship Specialty Start Date End Date Davin Mcgrath MD [address] [address] PCP - General Family Medicine 04/30/22 Bill Stoner MD [address] [facility] [address] [place] [address] 02/14/21 documented as of this encounter
--- OUTSIDE RECORDS SUMMARY | 2024-11-12 11:34 | XMS_ITS | Encounter Summary ---
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
--- OUTSIDE RECORDS SUMMARY | 2024-11-12 11:34 | XMS_ITS | Encounter Summary ---
Author Organization [facility] Address [address] [place] [address] Care Team Providers Care Price Clerk Name Role Phone Bill Stoner MD Primary Care Provider Unavail able Reason for Visit * Reason Comments Ear Pain x 3-4 days Sinusitis facial pressure, jaw pain Encounter Details Date Type Department Care Team (Late st Contact Info) Description 08/04/2019 11:20 AM CDT Office Visit [facility] AT [address] [id number] Provider, [facility] Left otitis media, unspecified otitis media type (Primary Dx) Social History Tobacco Use Types [...] Mass Index 37.49 08/04/2019 11:15 AM CDT documented in this encounter Patient Instructions * Patient Instructions* Adelita Enriquez, SET UP MECHANIC AUTOMATIC LINE-LESSON INSTRUCTOR - 08/04/2019 11:55 AM CDT Images from the original note were not included. Patient Education Ear Infection WHAT YOU NEED TO KNOW: What do I need to know about an ear infection? An ear infection is also called otitis media. An earinfection may be caused by blocked or swollen eustachian tubes. Eustachian tubes connect the middleear to the back of the nose and throat. They drain fluid from the middle ear. With an ear infection, fluid builds up and is infected by germs. The germs grow easily in fluid trapped behind the eardrum. What are the signs and symptoms of an ear infection? ?? Ear pain ?? Fever or a headache ?? Trouble hearing ?? Ringing or buzzing in your ear ?? Plugged ear or an ear that feels full ?? Dizziness ?? Nausea or vomiting How is an ear infection diagnosed? Your healthcare provider will look inside your ears. He or she may blow a puff of air inside your ears. This will show if your eardrums look healthy. If your eardrum is infected, it will look red and swollen and not move as it should. A tympanogram is another testthat may be done. During the test, an ear plug is put into each of your ears. Air pressure is used to see how the eardrum moves. It can help your healthcare provider learn if you have fluid in your middle ear. How is an ear infection treated? ?? Acetaminophen decreases pain and fever. It is available without a doctor's order. Ask how much to take and how often to take it. Follow directions. Read the labels of all other medicines you are using to see if they also contain acetaminophen, or ask your doctor or pharmacist. Acetaminophen can cause liver damage if not taken correctly. Do not use more than 4 grams (4,000 milligrams) total of acetaminophen in one day. ?? NSAIDs , such as ibuprofen, help decrease swelling, pain, and fever. This medicine is available with or without a doctor's order. NSAIDs can cause stomach bleeding or kidney problems in certain people. If you take blood thinner medicine, always ask your healthcare provider if NSAIDs are safe foryou. Always read the medicine label and follow directions. ?? Ear drops help treat your ear pain. ?? Antibiotics help treat a bacterial infection that caused your ear infection. How can I manage my symptoms? ?? Apply heat on your ear for 15 to 20 minutes, 3 to 4 times a day or as directed. Heat helps decrease pain. ?? Apply ice on your ear for 15 to 20 minutes, 3 to 4 times a day for 2 days or as directed. Use anice pack, or put crushed ice in a plastic bag. Cover it with a towel before you apply it to your ear. Ice decreases swelling and pain. How can I help prevent an ear infection? ?? Wash your hands often. Use soap and water. Wash your hands after you use the bathroom, change a child's diapers, or sneeze. Wash your hands before you prepare or eat food. ?? Stay away from people who are ill. Some germs are easily and quickly spread through contact. Call 911 or have someone call 911 for the following: ?? You have a seizure. When should I seek immediate care? ?? You have a fever and a stiff neck. When should I contact my healthcare provider? ?? Your ear pain gets worse or does not go away, even after treatment. ?? The outside of your ear is red or swollen. ?? You are vomiting or have diarrhea. ?? You have fluid coming from your ear. ?? You have questions or concerns about your condition or care. CARE AGREEMENT: You have the right to help plan your care. Learn about your health condition and how it may be treated. Discuss treatment options with your healthcare providers to decide what care you want to receive. You always have the right to refuse treatment. The above information is an educational resource coordinator only. It is not intended as medical advice for individual conditions or treatments. Talk to your doctor, nurse or pharmacist before following any medical regimen to see if it is safe and effective for you. ?? Copyright [employer] 2019 Information is for End User's use only and may not be sold, redistributed or otherwise used for commercial purposes. All illustrations and images included in CareNotes?? are the copyrighted property of [employer] or [employer] Patient Education Sinusitis WHAT YOU NEED TO KNOW: What is sinusitis? Sinusitis is inflammation or infection of your sinuses. It is most often caused by a virus. Acute sinusitis may last up to 12 weeks. Chronic sinusitis lasts longer than 12 weeks. Recurrent sinusitis means you have 4 or more times in 1 year. What increases my risk for sinusitis? ?? Medical conditions, such as an upper respiratory infection, allergies, asthma, or cystic fibrosis ?? Dental infections or procedures, such as gum infections, tooth decay, or a root canal ?? Smoking ?? Abnormal sinus structure, such as nasal growths, swollen tonsils, or a deviated septum ?? A weak immune system, from diseases such as diabetes or HIV What are the signs and symptoms of sinusitis? ?? Fever ?? Pain, pressure, redness, or swelling around the forehead, cheeks, or eyes ?? Thick yellow or green discharge from your nose ?? Tenderness when you touch your face over your sinuses ?? Dry cough that happens mostly at night or when you lie down ?? Headache and face pain that is worse when you lean forward ?? Tooth pain, or pain when you chew How is sinusitis diagnosed? Your healthcare provider will examine you and ask about your symptoms. He or she will check inside your nose using a nasal speculum. This is a small tool used to open yournostrils. A sample of the mucus from your nose may show what germ is causing your infection. How is sinusitis treated? Your symptoms may go away on their own. Your healthcare provider may recommend watchful waiting for up to 10 days before starting antibiotics. You may need any of the following: ?? Acetaminophen decreases pain and fever. It is available without a doctor's order. Ask how much to take and how often to take it. Follow directions. Read the labels of all other medicines you are using to see if they also contain acetaminophen, or ask your doctor or pharmacist. Acetaminophen can cause liver damage if not taken correctly. Do not use more than 4 grams (4,000 milligrams) total of acetaminophen in one day. ?? NSAIDs , such as ibuprofen, help decrease swelling, pain, and fever. This medicine is available with or without a doctor's order. NSAIDs can cause stomach bleeding or kidney problems in certain people. If you take blood thinner medicine, always ask your healthcare provider if NSAIDs are safe foryou. Always read the medicine label and follow directions. ?? Nasal steroid sprays may help decrease inflammation in your nose and sinuses. ?? Decongestants help reduce swelling and drain mucus in the nose and sinuses. They may help you breathe easier. ?? Antihistamines help dry mucus in the nose and relieve sneezing. ?? Antibiotics help treat or prevent a bacterial infection. How can I manage my symptoms? ?? Rinse your sinuses. Use a sinus rinse device to rinse your nasal passages with a saline (salt water) solution or distilled water. Do not use tap water. This will help thin the mucus in your nose and rinse away pollen and dirt. It will also help reduce swelling so you can breathe normally. Ask your healthcare provider how often to do this. ?? Breathe in steam. Heat a bowl of water until you see steam. Lean over the bowl and make a tent over your head with a large towel. Breathe deeply for about 20 minutes. Be careful not to get too close to the steam or burn yourself. Do this 3 times a day. You can also breathe deeply when you take ahot shower. ?? Sleep with your head elevated. Place an extra pillow under your head before you go to sleep to help your sinuses drain. ?? Drink liquids as directed. Ask your healthcare provider how much liquid to drink each day and which liquids are best for you. Liquids will thin the mucus in your nose and help it drain. Avoid drinks that contain alcohol or caffeine. ?? Do not smoke, and avoid secondhand smoke. Nicotine and other chemicals in cigarettes and cigars can make your symptoms worse. Ask your healthcare provider for information if you currently smoke and need help to quit. E-cigarettes or smokeless tobacco still contain nicotine. Talk to your healthcare provider before you use these products. How can I help prevent the spread of germs that cause sinusitis? Wash your hands often with soap and water. Wash your hands after you use the bathroom, change a child's diaper, or sneeze. Wash your hands before you prepare or eat food. When should I seek immediate care? ?? Your eye and eyelid are red, swollen, and painful. ?? You cannot open your eye. ?? You have vision changes, such as double vision. ?? Your eyeball bulges out or you cannot move your eye. ?? You are more sleepy than normal, or you notice changes in your ability to think, move, or talk. ?? You have a stiff neck, a fever, or a bad headache. ?? You have swelling of your forehead or scalp. When should I contact my healthcare provider? ?? Your symptoms do not improve after 3 days. ?? Your symptoms do not go away after 10 days. ?? You have nausea and are vomiting. ?? Your nose is bleeding. ?? You have questions or concerns about your condition or care. CARE AGREEMENT: You have the right to help plan your care. Learn about your health condition and how it may be treated. Discuss treatment options with your healthcare providers to decide what care you want to receive. You always have the right to refuse treatment. The above information is an educational resource coordinator only. It is not intended as medical advice for individual conditions or treatments. Talk to your doctor, nurse or pharmacist before following any medical regimen to see if it is safe and effective for you. ?? Copyright fypio 2019 Information is for End User's use only and may not be sold, redistributed or otherwise used for commercial purposes. All illustrations and images included in CareNotes?? are the copyrighted property of [employer] or [employer] Patient Education Acute Cough WHAT YOU NEED TO KNOW: What is an acute cough? An acute cough can last up to 3 weeks. Common causes of an acute cough include a cold, allergies, or a lung infection. How is the cause of an acute cough diagnosed? Your healthcare provider will examine you and listen to your lungs. Tell your healthcare provider if you cough up any mucus, or have a fever or shortnessof breath. Also tell your provider what makes the cough better or worse. Depending on your symptoms, you may need a chest x-ray. A sample of mucus may be collected and tested for infection. How is an acute cough treated? An acute cough usually goes away on its own. Ask your healthcare provider about medicines you can take to decrease your cough. You may need medicine to stop the cough, decrease swelling in your airways, or help open your airways. Medicine may also be given to help youcough up mucus. If you have an infection caused by bacteria, you may need antibiotics. What can I do to manage my cough? ?? Do not smoke and stay away from others who smoke. Nicotine and other chemicals in cigarettes andcigars can cause lung damage and make your cough worse. Ask your healthcare provider for information if you currently smoke and need help to quit. E-cigarettes or smokeless tobacco still contain nicotine. Talk to your healthcare provider before you use these products. ?? Drink extra liquids as directed. Liquids will help thin and loosen mucus so you can cough it up.Liquids will also help prevent dehydration. Examples of good liquids to drink include water, fruit juice, and broth. Do not drink liquids that contain caffeine. Caffeine can increase your risk for dehydration. Ask your healthcare provider how much liquid to drink each day. ?? Rest as directed. Do not do activities that make your cough worse, such as exercise. ?? Use a humidifier or vaporizer. Use a cool mist humidifier or a vaporizer to increase air moisture in your home. This may make it easier for you to breathe and help decrease your cough. ?? Eat 2 to 5 mL of honey 2 times each day. Honey can help thin mucus and decrease your cough. ?? Use cough drops or lozenges. These can help decrease throat irritation and your cough. When should I seek immediate care? ?? You have trouble breathing or feel short of breath. ?? You cough up blood, or you see blood in your mucus. ?? You faint or feel weak or dizzy. ?? You have chest pain when you cough or take a deep breath. ?? You have new wheezing. When should I contact my healthcare provider? ?? You have a fever. ?? Your cough lasts longer than 4 weeks. ?? Your symptoms do not improve with treatment. ?? You have questions or concerns about your condition or care. CARE AGREEMENT: You have the right to help plan your care. Learn about your health condition and how it may be treated. Discuss treatment options with your healthcare providers to decide what care you want to receive. You always have the right to refuse treatment. The above information is an educational resource coordinator only. It is not intended as medical advice for individual conditions or treatments. Talk to your doctor, nurse or pharmacist before following any medical regimen to see if it is safe and effective for you. ?? Copyright f[employer] 2019 Information is for End User's use only and may not be sold, redistributed or otherwise used for commercial purposes. All illustrations and images included in CareNotes?? are the copyrighted property of [employer] or [employer] documented in this encounter Progress Notes * Adelita Enriquez APRN-CNP - 08/04/2019 11:40 AM CDT Subjective: Mojgan Neves is a 54 year old female who presents for evaluation: Chief Complaint Patient presents with ??? Ear Pain x 3-4 days ??? Sinusitis facial pressure, jaw pain Primary Care Physician is Bill Stoner MD. Symptoms include left ear pain. Also has sinus drainage and pressure and cough. Denies sore throat or headache Onset of symptoms was 3 days ago, gradually worsening since that time. Denies fever or chills. No known sick contacts She is drinking plenty of fluids. Evaluation to date: none. Treatment to date: flonase and neti pot, advil, zyrtec No Known Allergies Outpatient Medications Marked as Taking for the 08/04/19 encounter (Office Visit) with Provider, Shellie Singh Medication Sig ??? amoxicillin-clavulanate (AUGMENTIN) 875-125 MG tablet Take 1 tablet by mouth 2 times daily withmorning and evening meal for 7 days ??? benzonatate (TESSALON) 200 MG capsule Take 1 capsule by mouth 3 times daily as needed for Cough ??? Fluticasone Propionate (FLONASE NA) ??? LISINOPRIL PO Past Medical History: Diagnosis Date ??? Hypertension There is no problem list on file for this patient. Past Surgical History: Procedure Laterality Date ??? Section ??? ENDOMETRIAL ABLATION ??? TUBAL LIGATION, LAPAROSCOPIC Social History Socioeconomic History ??? Marital status: Unknown Spouse name: Not on file ??? Number of children: Not on file ??? Years of education: Not on file ??? Highest education level: Not on file Occupational History ??? Not on file Social Needs ??? Financial resource strain: Not on file ??? Food insecurity: Worry: Not on file Inability: Not on file ??? Transportation needs: Medical: Not on file Non-medical: Not on file Tobacco Use ??? Smoking status: Never Smoker ??? Smokeless tobacco: Never Used Substance and Sexual Activity ??? Alcohol use: Not on file ??? Drug use: Not on file ??? Sexual activity: Not on file Lifestyle ??? Physical activity: Days per week: Not on file Minutes per session: Not on file ??? Stress: Not on file Relationships ??? Social connections: Talks on phone: Not on file Gets together: Not on file Attends orthodox service: Not on file Active member of club or organization: Not on file Attends meetings of clubs or organizations: Not on file Relationship status: Not on file ??? Intimate partner violence: Fear of current or ex partner: Not on file Emotionally abused: Not on file Physically abused: Not on file Forced sexual activity: Not on file Other Topics Concern ??? Not on file Social History Narrative ??? Not on file Medications reviewed. Review of Systems Pertinent items are noted in HPI Constitutional: Negative for fevers, chills. Eyes: Negative Ears, nose, mouth, and throat: Positive for eft ear pain and sinus congestion and pressure. Respiratory: Positive for acute cough Cardiovascular: Negative Hematologic/lymphatic: Negative Musculoskeletal:Negative Neurological: Negative Objective: BP 124/80 (BP SITE: LEFT ARM, BP POSITION: SITTING, BP CUFF SIZE: 12) Pulse 94 Temp 98.3 ??F (36.8 ??C) (Oral) Resp 20 Ht 1.575 m (5' 2 ) Wt 93 kg (205 lb) SpO2 98% BMI 37.49 kg/m2 Skin: Physical Exam Exam General appearance: alert, cooperative, no distress, oriented to person, place, and time, wellappearing Head: normocephalic, without trauma Eyes: sclera and conjunctiva clear, EOMI and PERRLA, lids normal Ears: canals clear bilaterally, right tympanic membranes normal, left TM slightly erythematous without bulging, hearing intact to voice Nose: nares open; no septal deviation is noted, nasal mucosa not inflamed, clear rhinorrhea, maxillary tenderness bilaterally Throat: no mucous membrane abnormalities, lips, mucosa, and tongue normal; teeth and gums normal, no tonsillar hypertrophy, no exudates present, uvula midline Neck: range of motion is intact, no adenopathy Nodes: no cervical adenopathy Lungs: breath sounds normal and symmetric; no rales or wheezes, dry cough noted during exam. Heart: regular rhythm, normal S1 and S2, without murmurs, gallops or rubs Neurologic: mental status normal; alert and oriented X 3; No results found for this or any previous visit (from the past 24 hour(s)). Assessment: . Encounter Diagnoses Name Primary? Left otitis media, unspecified otitis media type Yes Plan: Take antibiotics as prescribed Drink plenty of fluids and get plenty of rest. OTC antihistamine such as Zyrtec or Claritin May take Coricidin, avoid Sudafed due to hypertension Honey is a natural cough suppressant Tylenol and ibuprofen as needed per package directions If symptoms persist or worsen at any time, then follow up with PCP/ED Orders Placed This Encounter ??? amoxicillin-clavulanate (AUGMENTIN) 875-125 MG tablet Sig: Take 1 tablet by mouth 2 times daily with morning and evening meal for 7 days Dispense: 14 tablet Refill: 0 ??? benzonatate (TESSALON) 200 MG capsule Sig: Take 1 capsule by mouth 3 times daily as needed for Cough Dispense: 30 capsule Refill: 0 Continue to follow up with Bill Stoner MD as directed. After Visit Summary reviewed with patient. The patient indicates understanding of these issues and agrees with the plan. Patient discharged to Home .ADELAIDA Klein 08/04/2019 1:38 PM documented in this encounter Plan of Treatment Not on file documented as of this encounter Visit Diagnoses Diagnosis Left otitis media, unspecified otitis media type- Primary documented in this encounter Care Teams Price Clerk Relationship Specialty Start Date End Date Bill Stoner MD PCP - General Internal Medicine 03/02/18 documented as of this encounter
--- OUTSIDE RECORDS SUMMARY | 2024-11-12 11:34 | XMS_ITS | Patient Health Summary ---
Author Organization [facility] Address [address] [place] [address] Care Team Providers Care Veneer Stapler Name Role Phone Bill Stoner MD Primary Care Provider Unavail able Note from [facility],non-owned Affiliates and Associated Physician Practices is amultiple site organization consisting of ambulatory clinics and hospital sitesin [place], [place], [place] and [place]. This disclosure is being madepursuant to the Care Everywhere program and may not contain all information available regarding this patient. Last updated 18.[facility] Allergies No known active allergies Medications * Be aware that medications may not be up to date on this document. Alwaysverify current medications with the patient. * LISINOPRIL PO * Fluticasone Propionate (FLONASE NA) * benzonatate (TESSALON) 200 MG capsule(Started 08/04/2019) Take 1 capsule by mouth 3 times daily as needed for Cough Social History Tobacco Use Types Packs/Day Years [...] Mass Index 37.49 08/04/2019 11:15 AM CDT Care Teams Veneer Stapler Relationship Specialty Start Date End Date Bill Stoner MD PCP - General Internal Medicine 03/02/18
--- OUTSIDE RECORDS SUMMARY | 2024-11-12 11:34 | XMS_ITS | Clinical Summary ---
Author Organization [facility] Address [address] [place] [address] Care Team Providers Care Appointment Coordinator Name Role Phone Bill Stoner MD Unavailable [phone] Davin Mcgrath MD Primary Care Provider + Allergies No known active allergies Medications fexofenadine [...] each nostril daily 3 each 3 11/05/19 23 Active guaiFENesin-codeine (GUAITUSS AC) liquid 100-10 mg/5 [...] 12/25/2023 Assessment & Plan (12/25/2023 4:31 PM DIE CAST ENGINEER): - prednisone, robitussin - f/u prn Elevated [...] changes, now with hepatic steatosis - start shellie - discussed the risks/benefits/side effects of medication - f/u in 2 mo Assessment & Plan (12/25/2023 4:31 PM DIE CAST ENGINEER): - rec healthy diet and regular exercise Assessment & Plan (05/12/2023 8:54 AM CDT): - rec healthy diet and regular exercise Body mass index 40.0-44.9, adult (CMS/HCC) 05/12 Annual physical exam 11/05/2022 Assessment & Plan (12/25/2023 4:31 PM DIE CAST ENGINEER): - Reviewed with the patient BMI, blood pressure, diet, exercise, and encouraged healthy lifestyle choices. - Screened for high risk behaviors, diet and exercise habits, and symptoms of depression. - check screening labs - encouraged regular exercise and weight loss Assessment & Plan (11/05/2022 4:46 PM DIE CAST ENGINEER): - Reviewed with the patient BMI, blood pressure, diet, exercise, and encouraged healthy lifestyle choices. - Screened for high risk behaviors, diet and exercise habits, and symptoms of depression. - check screening labs - encouraged regular exercise and weight loss Snoring 11/05/2022 Assessment & Plan (11/05/2022 4:46 PM DIE CAST ENGINEER): - uncontrolled, possible ENOCH - rec weight loss - will ref to sleep med - pt to call back when ready to f/u with referral Gastroesophageal reflux disease without esophagi tis 04/30/2022 Assessment & Plan (11/05/2022 4:45 PM DIE CAST ENGINEER): - stable - continue current medication Assessment & Plan (04/30/2022 4:45 PM CDT): - stable - continue current medication Hypertension, essential 04/30/2022 Assessment & Plan (06/24/2024 4:10 PM CDT): - stable - continue lisinopril Assessment & Plan (12/25/2023 4:30 PM DIE CAST ENGINEER): - stable - continue current medication Assessment & Plan (06/24/2023 8:33 AM CDT): - stable - continue current medication Assessment & Plan (05/12/2023 8:53 AM CDT): - uncontrolled - restart amlodipine 10mg daily - f/u in 1 mo for recheck of BP, likely will need to restart lisinopril but pt is resistant to that today. Assessment & Plan (11/05/2022 4:45 PM DIE CAST ENGINEER): - stable - continue current medication Assessment & Plan (04/30/2022 4:45 PM CDT): - stable - continue current medication Allergic rhinitis due to allergen 04/30/2022 Assessment & Plan (06/24/2024 4:10 PM CDT): - poor control - continue flonase, jr - pt to consider allergy referal Assessment & Plan (12/25/2023 4:31 PM DIE CAST ENGINEER): - stable - continue current medication Assessment & Plan (11/05/2022 4:46 PM DIE CAST ENGINEER): - stable - continue current medication Assessment & Plan (04/30/2022 4:45 PM CDT): - continue flonase - add zyrtec due to ear effusions and eustachian tube dysfunction - f/u prn ARJUN (generalized anxiety disorder) 04/30/2022 Assessment & Plan (12/25/2023 4:30 PM DIE CAST ENGINEER): - stable of meds; f/u prn Assessment & Plan (05/12/2023 8:53 AM CDT): -stable off meds Assessment & Plan (11/05/2022 4:46 PM DIE CAST ENGINEER): - stable - continue current medication Assessment & Plan (04/30/2022 4:45 PM CDT): - stable - continue current medication Moderate episode of recurrent major depressive d isorder 04/30/2022 Assessment & Plan (12/25/2023 4:31 PM DIE CAST ENGINEER): - stable off meds; not interested in meds/counseling at this time - f/u prn Assessment & Plan (05/12/2023 8:53 AM CDT): -stable off meds Assessment & Plan (11/05/2022 4:46 PM DIE CAST ENGINEER): - stable - continue current medication Assessment & Plan (04/30/2022 4:45 PM CDT): - stable - continue current medication Resolved Problems Problem Noted Date Diagnosed Date Resolved Date Acute non-recurrent maxillary sinusitis 06/24/2023 12/23/2023 Assessment & Plan (06/24/2023 8:32 AM CDT): - restart jr and flonase - prednisone and augmentin - continue neti pot - f/u prn Encounters Date Type Department Care Team Description 11/08/[address] [facility] Primary Care [address] [place] [address] [address] [place] [address] Davin Mcgrath MD from Last 3 Months Immunizations Name Administration Dates Next Due Influenza, Unspecified 12/25/2023(Deferr ed: Other),08/02/2022(Deferred: Patient Refused) Tdap 06/24/2024 ZOSTER Recombinant 06/24/2024,11/05/2022 Surgical History Surgery Date Site/Laterality Comments [place] DELIVERY ONLY Section - (Added by TW Conv) [place] LIG/TRNSXJ FLP TUBE ABDL/VAG APPR UNI/BI Tubal Ligation - (Added by TW Conv) [place] HYSTEROSCOPY ENDOMETRIAL ABLATION Hysteroscopy With Endometrial Ablation - (Added by TW Conv) SECTION ABLATION 11/02/2012 - 12/02/2012 Medical History Medical History Date Comments Anxiety disorder Anxiety and dep ression - (Added by TW Conv) Personal history of other di seases of the circulatory system History of hypertension - (A dded by TW Conv) Hypertension Family History Medical History Relation Name Comments Cancer Father 60 Alzheimer's disease Mother 70 Relation Name Status Comments Father 60 Mother 70 Social History Tobacco Use Types Packs/Day Years [...] on file Legal Sex Female 9:09 PM DIE CAST ENGINEER Gender Identity Not on file Sexual Orientation Not on file Obstetrics History Para Term AB IAB SAB Ectopic Multiple Livin g Live Births 2 2 2 2 2 Date Outcome GA Total Labor Labor/2nd/3rd Weight Sex Type Anes PTL Qiana A1 A5 Name Clin 1987 Term F CS-Un spec Living Complications:Failure to Pro severo in First Stage 1990 Term F CS-Un spec Living Complications:None Last Filed Vital Signs Vital Sign Reading [...] 06/24/2024 3:33 PM CDT Plan of Treatment Health Maintenance Due Date Last Done Comments Breast Cancer Screening-Mammogram 1965 Cervical Cancer Screening 1965 Hepatitis C Screening 1965 Hepatitis B Screening 1983 Covid-19 Vaccine ( season) 2024 09/11/2021, 11/28/2020 Influenza Vaccine (#1) 2024 Depression Screening 12/25/2024 12/25/2023, 11/05/2022, 04/30/2022, Additional history exists Regular Well Visit/Exam 18-64 12/25/2024 12/25/2023, 11/05/2022, 07/16/2021, Additional history exists Colon Cancer Screening-Colonoscopy 05/14/2025 05/14/2015 DTaP/Tdap/Td Vaccine (2 - Td or Tdap) 06/24/2034 06/24/2024 Colon Cancer Screening-CT Colonography Discontinued 05/14/2015 Colon Cancer Screening-DNA Stool Discontinued 05/14/2015 Colon Cancer Screening-FIT Discontinued 05/14/2015 Colon Cancer Screening-Sigmoidoscopy Discontinued 05/14/2015 Zoster Vaccine Completed 06/24/2024, 11/05/2022 Pneumococcal vaccine <65 Aged Out No longer eligible based on patient's age to complete this topic Procedures Procedure Name Priority Date/Time Associated Diagnosis Comments COLONOSCOPY REPORT 05/14/2015 from Last 3 Months or Most Recently Relevant to Health Maintenance Results * COLONOSCOPY REPORT (05/14/2015) Anatomical Region Laterality Modality Other Narrative 05/14/2015 Ordered by an unspecified provider. us Historical Provider GI PROCEDURE ORDERABLES F inal Result from Last 3 Months or Most Recently Relevant to Health Maintenance Insurance [id number] [place] [address] CHOICE [employer]US [employer] [facility] Care Teams Appointment Coordinator Relationship Specialty Start Date End Date Davin Mcgrath MD [address] [address] PCP - General Family Medicine 04/30/22 Bill Stoner MD [address] [address] 02/14/21
--- OUTSIDE RECORDS SUMMARY | 2024-11-12 11:34 | XMS_ITS | Encounter Summary ---
Author Organization [facility] Healthcare Address [address] [place] [address] Care Team Providers Care Mastic Worker Name Role Phone Bill Stoner MD Unavailable [phone] Davin Mcgrath MD Primary Care Provider + Encounter Details Date Type Department Care Team (Late st Contact Info) Description 05/12/2023 9:05 AM CDT [facility] Office Building [address] [address] ARJUN (generalized anxiety disorder); Hypertension, essential; Screening, lipid Social History Tobacco Use Types Packs/Day Years [...] on file Legal Sex Female 9:09 PM ADMINISTRATIVE RESIDENT Gender Identity Not on file Sexual Orientation Not on file documented as of this encounter Miscellaneous Notes * Result Encounter Note - Davin Mcgrath MD - 05/15/2023 8:19 AM CDT Please call the patient regarding her result. * Result Encounter Note - Davin Mcgrath MD - 05/12/2023 4:43 PM CDT Your electrolytes and kidney function are normal. [...] Priority Date/Time Associated Diagnosis Comments EGFR Routine 05/12/2023 9:31 AM CDT Hypertension, essential THYROID FUNCTION CASCADE Routine 05/12/2023 9:31 AM CDT ARJUN (generalized anxiety disorder) LIPID PANEL Routine 05/12/2023 9:31 AM CDT Screening, lipid COMPREHENSIVE METABOLIC PANEL Routine 05/12/2023 9:31 AM CDT Hypertension, essential documented in this encounter Results * eGFR (05/12/2023 9:31 AM CDT) [facility] eGFR 104 mL/min/1. 73 m2 JEFF TRISTAN Comment: Interpretive Data Reference Interval Normal ?>/= [...] was last reviewed 2021. Testing performed by: [facility], [address] [place] [address]., [address] Blood 05/12/2023 9:31 AM CDT 05/12/2023 11:59 AM CDT us Davin Mcgrath MD LAB BLOOD ORDERABLES Fin al Result Performing Organization Address City/State/[facility] Co de Phone Number JEFF [address] [facility] Department [place] [address] * (ABNORMAL) Lipid panel (05/12/2023 [...] last revised on 2018. Testing performed by: [address] [address] Triglycerides 88 <=149 mg/dL JEFF Comment: Interpretive [...] last revised on 2018. Testing performed by: [address] [address] HDL 56 >=40 mg/dL JEFF Comment: Interpretive [...] last revised on 2018. Testing performed by: [address] [address] LDL, calculated 158(H) <=129 mg/dL JEFF Comment: [...] last revised on 2018. Testing performed by: [address] [address] Non-HDL Cholesterol 176 mg/dL JEFF Comment: Interpretive [...] last revised on 2018. Testing performed by: [address] [address] Chol/HDL ratio 4 JEFF Comment:Testing performed by : [address] [address] Blood 05/12/2023 9:31 AM CDT 05/12/2023 11:59 AM CDT us Davin Mcgrath MD LAB BLOOD ORDERABLES Fin al Result JEFF [address] [facility] Department [place] [address] * (ABNORMAL) Comprehensive metabolic panel (05/12/2023 9:31 AM CDT) Sodium 144 135 - 145 mmol/L JEFF Comment:Testing performed by : [address] [address] Potassium, pl 4.7 3.3 - 4.9 mmol/L JEFF Comment:Testing performed by : [address] [address] Chloride 104 97 - 110 mmol/L JEFF Comment:Testing performed by : [address] [address] CO2 29 22 - 32 mmol/L JEFF Comment:Testing performed by : [address] [address] Anion gap 11 2 - 15 mmol/L JEFF Comment:Testing performed by : [address] [address] BUN 15 6 - 25 mg/dL JEFF Comment:Testing performed by : [address] [address] Creatinine 0.60 0.60 - 1.10 mg/dL JEFF Comment:Testing performed by : [address] [address] Glucose 114 70 - 199 mg/dL JEFF [...] was last revised 2022. Testing performed by: [facility], [address] [place] [address]., [address] Calcium 9.9 8.5 - 10.3 mg/dL JEFF Comment:Testing performed by : [address] [address] Bilirubin, total 0.6 0.1 - 1.2 mg/dL JEFF Comment:Testing performed by : [address] [address] Protein, pl 7.3 6.5 - 8.5 g/dL JEFF Comment:Testing performed by : [address] [address] Albumin 4.4 3.5 - 5.0 g/dL JEFF Comment:Testing performed by : [address] [address] Alk phos 189(H) 40 - 130 Units/L JEFF Comment:Testing performed by : [address] [address] ALT 38 7 - 45 Units/L JEFF Comment:Testing performed by : [address] [address] AST 27 10 - 45 Units/L [facility] Comment:Testing performed by : [address] [address] Blood 05/12/2023 9:31 AM CDT 05/12/2023 11:59 AM CDT us Davin Mcgrath MD LAB BLOOD ORDERABLES Fin al Result JEFF [address] [facility] Department [place] [address] * TSH reflex to free T4 (05/12/2023 9:31 AM CDT) TSH 1.58 0.30 - 4.20 mcIUnit/mL JEFF TRISTAN Comment:Testing performed by : [facility], [address] [place] [address]., [address] Blood 05/12/2023 9:31 AM CDT 05/12/2023 11:59 AM CDT us Davin Mcgrath MD LAB BLOOD ORDERABLES Fin al Result JEFF [address] [facility] Department [place] [address] documented in this encounter Visit Diagnoses Diagnosis ARJUN (generalized anxiety disorder) Generalized anxiety disorder Hypertension, essential Unspecified essential hypertension Screening, lipid documented in this encounter Care Teams Mastic Worker Relationship Specialty Start Date End Date Davin Mcgrath MD [address] [place] [address] PCP - General Family Medicine 04/30/22 Bill Stoner MD [address] [facility] [address] [place] [address] 02/14/21 documented as of this encounter
--- OUTSIDE RECORDS SUMMARY | 2024-11-12 11:34 | XMS_ITS | Clinical Summary ---
Author Organization [facility] Care Team Providers Care Paper Sheeter Name Role Phone Unavailable Primary Care Provider Unavailabl e Social History Tobacco Use Types Packs/Day Years Used Date Smoking Tobacco: Never Assessed Comments Unknown Sex and Gender Information Value Date Recorded Sex Assigned at Not on file Legal Sex Female 2:33 PM MASTER SHIP Gender Identity Not on file Sexual Orientation Not on file Plan of Treatment Health Maintenance Due Date Last Done Comments Hepatitis C Virus (HCV) Screening 1965 TdaP Immunization 1965 Hepatitis B Immunization (1 of 3 - 19+ 3-dose series) 01/04/1984 Pap Smear 1986 Cervical Cancer Screening (CCS) 1995 HPV/Cotest 1995 Colonoscopy 2010 Colorectal Cancer Screening 2010 Cologuard 2015 Immunochemical Fecal Occult Blood 2015 Mammogram 2015 Pneumococcal Immunization (5 0+ years) (1 of 1 - PCV) 2015 Zoster Immunization (1 of 2) 2015 Influenza Immunization (#1) 2024 SARS-COV-2 Immunization ( season) 2024 Respiratory Syncytial Virus (RSV) Immunization (Adult) (1 - 1-dose 75+ series) 01/04/2040 Meningococcal Immunization (ACWY) Aged Out No longer eligible based on patient's age to complete this topic Pneumococcal Immunization Combined Aged Out No longer eligible based on patient's age to complete this topic Rotavirus Immunization Aged Out No lo nger eligible based on patient's age to complete this topic
--- OUTSIDE RECORDS SUMMARY | 2024-11-12 11:35 | XMS_ITS | Encounter Summary ---
Author Organization [facility] Address [address] [address] Care Team Providers Care Punchboard Filling Machine Operator Name Role Phone Bill Stoner MD Unavailable [phone] Davin Mcgrath MD Primary Care Provider + Reason for Visit * Reason Comments New Patient Pt would like to dis cuss problem with her left ear. Has been painful on and off. Encounter Details Date Type Department Care Team (Late st Contact Info) Description 04/30/2022 3:00 PM CDT Office Visit [facility] Primary Care [address] [phone] Davin Mcgrath MD [address] [place] [id number] Encounter to establish care (Primary Dx); Gastroesophageal reflux disease without esophagitis; Hypertension, essential; Non-seasonal allergic rhinitis due to other allergic trigger; Moderate episode of recurrent major depressive disorder (HCC); ARJUN (generalized anxiety disorder); Screening, lipid Social History Tobacco Use Types [...] more points, staff should administer the PHQ-9) 2 04/30/2022 Comments No Sex and Gender Information Value Date Recorded Sex Assigned at Not on file 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 Gender Identity Not on file Sexual Orientation Not on file documented as of this encounter Last Filed Vital Signs Vital Sign Reading Time Taken Comments Blood Pressure 130/78 04/30/2022 2:45 PM CDT Pulse 103 04/30/2022 2:45 PM CDT Temperature 37.2 ??C (98.9 ??F) 04/30/2022 2:45 PM CD T Respiratory Rate - - Oxygen Saturation 99% 04/30/2022 2:45 PM CDT Inhaled Oxygen Concentration - - Weight 92.6 kg (204 lb 1.6 oz) 04/30/2022 2:45 P M CDT Height 154.9 cm (5' 1 ) 04/30/2022 2:45 PM CDT Body Mass Index 38.56 04/30/2022 2:45 PM CDT documented in this encounter Ordered Prescriptions Prescription Sig Dispense Quantity Refills Last Filled Start Date End Date fexofenadine (FEDERICA) 180 mg tabletIndications: Non-seasonal allergic rhinitis due to other allergic trigger Take 1 tablet (180 mg total) by mouth daily as needed (allergies) 90 tablet 3 04/30/2022 3 lisinopriL (PRINIVIL,ZESTRIL) 40 mg tabletIndications: Hypertension, essential Take 1 tablet (40 mg total) by mouth daily 90 tablet 3 04/30/2022 3 fluticasone propionate (FLONASE) 50 mcg/actuation nasal sprayIndications:N on-seasonal allergic rhinitis due to other allergic trigger Administer 1 spray into each nostril daily 3 each 3 04/30/2022 3 amLODIPine (NORVASC) 10 mg tabletIndications: Hypertension, essential Take 1 tablet (10 mg total) by mouth daily 90 tablet 3 04/30/[address] (CYMBALTA) 30 mg capsuleIndications :Moderate episode of recurrent major depressive disorder (HCC),ARJUN (generalized anxiety disorder) Take 1 capsule (30 mg total) by mouth daily 90 capsule 3 04/30/2022 3 documented in this encounter Progress Notes * Davin Mcgrath MD - 04/30/2022 3:00 PM CDT Images from the original note were not included. Subjective/Objective Patient ID: Mojgan Neves is a 57 y.o. female. Chief Complaint New Patient (Pt would like to discuss problem with her left ear. Has been painful on and off. ) Vitals: 04/30/22 1445 BP: 130/78 BP Location: Left arm Patient Position: Sitting Pulse: 103 Temp: 37.2 ??C (98.9 ??F) TempSrc: Temporal SpO2: 99% Weight: 92.6 kg (204 lb 1.6 oz) Height: 154.9 cm (5' 1 ) HPI: Mojgan Neves is a 57 y.o. female here today for the following concerns: Establish care - Pt establishing care here today. - c/o pain in L ear that comes and goes. Feels like a fullness with some muffling of sounds at times. Chronic Medical Conditions: Hypertension - on amlodipine 10mg daily and lisinopril 40mg daily GERD - on omeprazole 40mg daily Depression/ARJUN - on cymbalta 30mg daily Allergic Rhinitis - on flonase daily Health Maintenance: - Colonoscopy (45-75): age 50 - normal; due 2024 - Tobacco history: Never used - Exercise: occasional - Mammogram (50-74): 2020 - Pap (21-65): 2020 Specialists Involved in Care: - Etl Application Developer - Dr Davila Health Maintenance Topic Date Due ??? Cervical Cancer Screening-Pap and HPV Never done ??? Breast Cancer Screening-Mammogram Never done ??? Hepatitis C Screening Never done ??? DTaP/Tdap/Td Vaccine (1 - Tdap) Never done ??? Zoster Vaccines Never done ??? Covid-19 Vaccine (2 - Moderna series) 12/26/2020 ??? Influenza Vaccine (Season Ended) 2022 ??? Regular Well Visit/Exam 18-64 07/16/2022 ??? Depression Screening-PHQ 04/30/2023 ??? Colon Cancer Screening-Colonoscopy 05/14/2025 ? ? Pneumococcal vaccine <65 Aged Out Review of Systems Constitutional: Negative for chills and fever. HENT: Negative for congestion, rhinorrhea and sore throat. Eyes: Negative for visual disturbance. Respiratory: Negative for chest tightness and shortness of breath. Cardiovascular: Negative for chest pain. Gastrointestinal: Negative for abdominal pain, blood in stool, constipation, diarrhea, nausea and vomiting. Genitourinary: Negative for dysuria. Musculoskeletal: Positive for back pain. Skin: Negative for rash. Neurological: Negative for numbness and headaches. Psychiatric/Behavioral: Negative for dysphoric mood. The patient is not nervous/anxious. Physical Exam Vitals reviewed. Constitutional: Appearance: She is well-developed. HENT: Head: Normocephalic and atraumatic. Right Ear: External ear normal. A middle ear effusion is present. Tympanic membrane is not injected. Left Ear: External ear normal. A middle ear effusion is present. Tympanic membrane is injected. Mouth/Throat: Mouth: Mucous membranes are moist. Pharynx: Uvula midline. No oropharyngeal exudate or posterior oropharyngeal erythema. Eyes: General: Right eye: No discharge. Left [...] Diagnoses and all orders for this visit: Encounter to establish care (Primary) Gastroesophageal reflux disease without esophagitis Assessment & Plan: - stable - continue current medication Hypertension, essential Assessment & Plan: - stable - continue current medication Orders: - amLODIPine (NORVASC) 10 mg tablet; Take 1 tablet (10 mg total) by mouth daily - lisinopriL (PRINIVIL,ZESTRIL) 40 mg tablet; Take 1 tablet (40 mg total) by mouth daily - Comprehensive metabolic panel; Future Non-seasonal allergic rhinitis due to other allergic trigger Assessment & Plan: - continue flonase - add zyrtec due to ear effusions and eustachian tube dysfunction - f/u prn Orders: - fluticasone propionate (FLONASE) 50 mcg/actuation nasal spray; Administer 1 spray into each nostril daily - fexofenadine (FEDERICA) 180 mg tablet; Take 1 tablet (180 mg total) by mouth daily as needed (allergies) Moderate episode of recurrent major depressive disorder (HCC) Assessment & Plan: - stable - continue current medication Orders: - DULoxetine DR (CYMBALTA) 30 mg capsule; Take 1 capsule (30 mg total) by mouth daily - TSH reflex to free T4; Future ARJUN (generalized anxiety disorder) Assessment & Plan: - stable - continue current medication Orders: - DULoxetine DR (CYMBALTA) 30 mg capsule; Take 1 capsule (30 mg total) by mouth daily - TSH reflex to free T4; Future Screening, lipid - Lipid panel; Future Orders Placed This Encounter Procedures ??? Comprehensive metabolic panel Standing Status: Future Standing Expiration Date: 04/30/2023 ??? Lipid panel Standing Status: Future Standing Expiration Date: 04/30/2023 ??? TSH reflex to free T4 Standing Status: Future Standing Expiration Date: 04/30/2023 *This note is dictated using [employer] voice recognition software, variances in spelling and vocabulary are possible and unintentional.* Davin Mcgrath MD documented in this encounter Miscellaneous Notes * Assessment & Plan Note - Davin Mcgrath MD - 04/30/2022 4:45 PM CDT Associated Problem(s): ARJUN (generalized anxiety disorder) - stable - continue current medication * Assessment & Plan Note - Davin Mcgrath MD - 04/30/2022 4:45 PM CDT Associated Problem(s): Moderate episode of recurrent major depressive disorder (HCC) - stable - continue current medication * Assessment & Plan Note - Davin Mcgrath MD - 04/30/2022 4:45 PM CDT Associated Problem(s): Gastroesophageal reflux disease without esophagitis - stable - continue current medication * Assessment & Plan Note - Davin Mcgrath MD - 04/30/2022 4:45 PM CDT Associated Problem(s): Hypertension, essential - stable - continue current medication * Assessment & Plan Note - Davin Mcgrath MD - 04/30/2022 4:44 PM CDT Associated Problem(s): Allergic rhinitis due to allergen - continue flonase - add zyrtec due to ear effusions and eustachian tube dysfunction - f/u prn documented in this encounter Plan of Treatment Not on file documented as of this encounter Visit Diagnoses Diagnosis Encounter to establish care- Primary Gastroesophageal reflux disease without esophagitis Esophageal reflux Hypertension, essential Unspecified essential hypertension Non-seasonal allergic rhinitis due to other allergic trigger Moderate episode of recurrent major depressive disorder (HCC) ARJUN (generalized anxiety disorder) Generalized anxiety disorder Screening, lipid documented in this encounter Discontinued Medications Medication Sig Discontinue Reason Start Date End Da te fluticasone propionate (FLONASE) 50 mcg/actuation nasal spray Reorder [address] (CYMBALTA) 30 mg capsule Reorder 07/10/2021 04/30/2022 amLODIPine (NORVASC) 10 mg tablet Take 10 mg by mouth daily Reorder 04/15/2021 04/30/2022 lisinopriL (PRINIVIL,ZESTRIL) 40 mg tablet Reorder 07/10/2021 04/30/2022 documented as of this encounter Historical Medications * This list may reflect changes made after this encounter. cyclobenzaprine (FLEXERIL) 5 mg tablet Take 5 mg by mouth 3 (three) times a day as needed for muscle spasms 05/12/2023 added in this encounter Care Teams Punchboard Filling Machine Operator Relationship Specialty Start Date End Date Davin Mcgrath MD [address] [address] PCP - General Family Medicine 04/30/22 Bill Stoner MD [address] [facility] [address] [place] [address] 02/14/21 documented as of this encounter
--- OUTSIDE RECORDS SUMMARY | 2024-11-12 11:35 | XMS_ITS | Encounter Summary ---
Author Organization [facility] Address [address] [address] Care Team Providers Care Picture Framer Name Role Phone Bill Stoner MD Unavailable [phone] Davin Mcgrath MD Primary Care Provider + Reason for Visit * Reason Onset Date Comments Pelvic Pain 12/23/2022 Encounter Details Date Type Department Care Team ([facility] st Contact Info) Description 12/23/2022 Nurse Triage [facility] Primary Care [address] [phone] Davin Mcgrath MD [facility] [address] [place] [address] Social History Tobacco Use Types Packs/Day [...] on file 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 Neves calls in today with reports of COVID. Sx started overnight. LOPEZ, sinus congestion, severe intermittent pelvic pain, body aches, sore throat, subjective fever and chills overnight. She reports nasal drainage is green. Ms. Neves denies SOB. Encouraged Ms. Neves to call back with worsening sx, including SOB. Stay home for 5 days fromonset of sx. If sx improving and no fever in 24 hours, may leave home on day 6 and wear mask aroundothers for additional 5 days. Avoid sharing a bathroom, frequent hand washing, high touch surfaces clean. Hydrate, warm broth & fluids, tea with honey to soothe throat, cough syrups, throat logenzes, apap for LOPEZ/temp/body ache, mucinex for expectorant, warm showers, vitamin C, zinc. compensation associate recommends patient be seen today. No appts available with PCP. [facility] scheduled. Reason for Disposition [1] COVID-19 diagnosed by positive lab test (e.g., PCR, rapid self-test kit) AND [2] mild symptoms (e.g., cough, fever, others) AND [3] no complications or SOB Protocols used: Coronavirus (COVID-19) Diagnosed or [id number] ICAL BRACE MAKER * Telephone Encounter - Margarita Hudson RN - 12/23/2022 9:03 AM SURGICAL BRACE MAKER Regarding: Severe pain on the right side at pelvis(pain comes and goes) ----- Message from Shonda John sent at 12/23/2022 8:43 AM SURGICAL BRACE MAKER ----- Symptom Based Call Chief Complaint: Severe pain on the right side at pelvis(pain comes and goes) Did you review 911/Red Flag List?Yes Duration: 12.22.22 Why was appointment not scheduled? Red Flag Caller's Callback #: [phone] Additional Comments: Patient indicates she has Covid Severe pain on the right side at pelvis(pain comes and goes), body aching, sore throat, headache, sinus flare up. Has not taken any meds and unsure of fever Patient asking for prescription Does message need to be routed? Yes-Action Needed ICAL BRACE MAKER documented in this encounter Plan of Treatment Not on file documented as of this encounter Visit Diagnoses Not on filedocumented in this encounter Care Teams Picture Framer Relationship Specialty Start Date End Date Davin Mcgrath MD [facility] [address] PCP - General Family Medicine 04/30/22 Bill Stoner MD [address] [address] 02/14/21 documented as of this encounter
--- OUTSIDE RECORDS SUMMARY | 2024-11-12 11:35 | XMS_ITS | Encounter Summary ---
Author Organization [facility] Healthcare Address [address] [place] [address] Care Team Providers Care Medicaid Biller Name Role Phone Angel Velez MD Primary Care Provider [phone] Bill Stoner MD Unavailable Encounter Details Date Type Department Care Team (Late st Contact Info) Description 02/14/2021 11:29 AM CDT - 02/14/2021 11:59 PM CDT Emergency [address] [address] Unknown, Raz Rojas MD [address] [place] [id number] Discharge Disposition: Discharge to home or self care Social History Tobacco Use Types Packs/Day Years Used Date Smoking Tobacco: Never Assessed Comments Unknown Sex and Gender Information Value Date Recorded Sex Assigned at Not on file 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 Gender Identity Not on file Sexual Orientation Not on file documented as of this encounter Last Filed Vital Signs Vital Sign Reading Time Taken Comments Blood Pressure 129/72 02/14/2021 11:32 AM CDT Pulse 88 02/14/2021 11:32 AM CDT Temperature 36.7 ??C (98.1 ??F) 02/14/2021 1 1:32 AM CDT Respiratory Rate - - Oxygen Saturation 96% 02/14/2021 11: 32 AM CDT Inhaled Oxygen Concentration - - Weight 91.5 kg (201 lb 11.6 oz) 021 11:32 AM CDT Height 157.5 cm (5' 2 ) 02/14/2021 11:3 2 AM CDT Body Mass Index 36.9 02/14/2021 11:32 AM CDT documented in this encounter Medications at Time of Discharge fluticasone propionate (FLONASE) 50 mcg/actuation nasal spray 04/30/2022 lisinopril (PRINIVIL,ZESTRIL) 20 mg tablet TK 1 T PO QD 3 01/17/2019 07/16/2021 documented as of this encounter Discharge Disposition Disposition Code Departure Means Destination Discharge to home or self care documented in this encounter Plan of Treatment Not on file documented as of this encounter Procedures Procedure Name Priority Date/Time Associated Diagnosis Comments SCAN - LABS 02/15/2021 12:00 AM CDT URINALYSIS, COMPLETE W/REFLEX TO CULTURE Routine 02/14/2021 12:15 PM CDT DRUGS OF ABUSE SCREEN, URINE WITHOUT CONFIRMATION Routine 02/14/2021 12:15 PM CDT ECG 12-LEAD 02/14/2021 12:03 PM CDT THYROID FUNCTION CASCADE Routine 02/14/2021 11:49 AM CDT CBC WITH AUTO DIFFERENTIAL Routine 02/14/2021 11:48 AM CDT COMPREHENSIVE METABOLIC PANEL Routine 02/14/2021 11:48 AM CDT documented in this encounter Results * SCAN - LABS (02/15/2021 12:00 AM CDT) Narrative 02/15/2021 12:00 AM CDT Ordered by an unspecified provider. us Historical Provider Final Res ult * Drugs of Abuse Screen, Urine without Confirmation (02/14/2021 12:15 PM CDT) Amphetamines NOT DETECTED [facility] Comment: This assay uses 500 ng/mL as a cutoff for a positive result. Barbiturates NOT DETECTED [facility] Comment: This assay uses 200 ng/mL as a cutoff for a positive result. Urine Fentanyl NOT DETECTED [facility] Comment: This assay uses 1 ng/mL as a cutoff for a positive result. Benzodiazepines NOT DETECTED [facility] Comment: This assay uses 100 ng/mL as a cutoff for a positive result. Cannabinoids NOT DETECTED [facility] Comment: This assay uses 50 ng/mL as a cutoff for a positive result. Cocaine NOT DETECTED [facility] Comment: This assay uses 150 ng/mL as a cutoff for a positive result. Opiates NOT DETECTED [facility] Comment: This assay uses 300 ng/mL as a cutoff for a positive result. Urine methadone NOT DETECTED [facility] Comment: This assay uses 300 ng/mL as a cutoff for a positive result. Urine phencyclidine plus NOT DETECTED [facility] Comment: This assay uses 25 ng/mL as a cutoff for a positive result. Oxycodone NOT DETECTED [facility] Comment: This assay uses 100 ng/mL as a cutoff for a positive result. Urine Creatinine/THEODORE 63.0 mg/dL [facility] Comment: If Creatinine is < 40 mg/dL, recollection is suggested. Drug of abuse screening is performed by immunoassay for medical purposes only. This is not to be used for Pain Management purposes. 02/14/2021 12:1 5 PM CDT 02/14/2021 12:20 PM CDT Narrative [facility] - 02/14/2021 12:57 PM CDT Collected By gd Resulting Agency Comment ER us Billie DORANTES LAB URINE ORDERABLE S Final Result [facility] [address] [place] [address], [facility] [phone] * URINALYSIS, COMPLETE W/REFLEX TO CULTURE (02/14/2021 12:15 PM CDT) Pathologist [facility] Ur Collection Type CLEAN CATCH [facility] Ur Culture Indicated? C S NOT INDICATED [facility] Urine Color YELLOW YELLOW [facility] Urine Clarity CLEAR CLEAR [facility] Urine Glucose (UA) NORMAL NORMAL mg/dL [facility] Urine Bilirubin NEGATIVE NEGATIVE mg/dl [facility] Urine Ketones NEGATIVE NEGATIVE mg/dL [facility] Ur Specific [place] 1.012 1.005 - 1.025 [facility] Urine Blood NEGATIVE NEGATIVE mg/dl [facility] Urine pH 7.0 5.0 - 8.0 [facility] Urine Protein NEGATIVE NEGATIVE mg/dL [facility] Urine Urobilinogen NORMAL NORMAL mg/dL [facility] Urine Nitrite NEGATIVE NEGATIVE [facility] Ur Leukocyte Esterase NEGATIVE NEGATIVE Abdulkadir/ul [facility] Ur Microscopic Review Indicated or Ordered [facility] Urine RBC 0-2 0 - 2 /HPF [facility] Urine WBC 0-5 0 - 2 /HPF [facility] Ur Squamous Epith Cells 1-5 /HPF [facility] 02/14/2021 12:1 5 PM CDT 02/14/2021 12:21 PM CDT Narrative [facility] - 02/14/2021 12:35 PM CDT Indication(s) for ordering ?? Dysuria gd Clean catch Resulting Agency Comment ER us Billie DORANTES LAB URINE ORDERABLE S Final Result [facility] [address] [place] [address], [facility] [phone] * ECG 12 lead (02/14/2021 12:03 PM CDT) [facility] Ventricular Rate EKG/Min 81 BPM ER RADIOLOGY Atrial Rate 81 BPM ER RADIOLOGY CO-Interval (MSEC) 142 ms ER RADIOLOGY QRS-Interval (MSEC) 90 ms ER RADIOLOGY QT-Interval (MSEC) 364 ms ER RADIOLOGY QTc 422 ms ER RADIOLOGY P [place] 50 degrees ER RADIOLOGY R [place] 47 degrees ER RADIOLOGY T [place] 40 degrees ER RADIOLOGY Diagnosis Normal sinus rhythm Normal ECG No previous ECGs available ER RADIOLOGY 02/14/2021 12:0 3 PM CDT 02/14/2021 1:50 PM CDT Narrative Resulting Agency Comment PREADT Billie DORANTES ECG ORDERABLES Fin al Result ER RADIOLOGY * TSH reflex to free T4 (02/14/2021 11:49 AM CDT) TSH W REFLEX TO FT4 2.090 0.27 - 4.20 uIU/mL [facility] 02/14/2021 11:4 9 AM CDT 02/14/2021 11:54 AM CDT Narrative Resulting Agency Comment ER Billie DORANTES LAB BLOOD ORDERABLE S Final Result Performing Organization Address [facility] Co de Phone Number [address] [phone] * (ABNORMAL) Comprehensive metabolic panel (02/14/2021 11:48 AM CDT) Sodium 136 135 - 145 mmol/L [facility] Potassium 4.2 3.3 - 5.1 mmol/L [facility] Chloride 99 96 - 108 mmol/L [facility] Carbon Dioxide 29 22 - 32 mmol/L [facility] Anion Gap 8 7 - 16 [facility] Glucose 98 70 - 100 mg/dL [facility] BUN 14 8 - 25 mg/dL [facility] Creatinine 0.5 0.5 - 1.1 mg/dL [facility] Comment: NOTE: Estimated GFR (Cockroft-Gault) will NOT be calculated unless patient Height and Weight were entered. Also, Kidney Disease Stage (GFR) and Estimated GFR (Cockroft-Gault) will NOT be calculated if Creatinine result is <0.2. Kidney Disease Stage >90 mL/MIN [facility] Comment: NOTE; ??The GFR is an estimated value using the creatinine, sex, age, and race of the patient. THE Estimated Kidney Disease GFR is validated for AGES 18-70 YEARS STAGE ?mL/Min ?DESCRIPTION ??1 ?90 mL/min or more ?Normal or elevated GFR ??2 ? 60-89 mL/min ?Mildly decreased GFR ??3 ? 30-59 mL/min ?Moderately decreased GFR ??4 ? 15-29 mL/min ?Severely decreased GFR ??5 ? <15 mL/min ? Kidney failure or on dialysis Est GFR (Cockcroft-G) 132 ml/MIN [facility] Comment: Estimated GFR(Cockroft-Gault)is used to calculate patient medication dosage Calcium 9.4 8.6 - 10.3 mg/dL [facility] Total Protein 7.4 6.4 - 8.3 g/dL [facility] Albumin 4.6 3.5 - 5.0 g/dL [facility] Globulin 2.8 2.3 - 3.5 gm/dL [facility] Albumin/Globulin Ratio 1.6 1.1 - 1.8 [facility] Total Bilirubin 0.4 0.0 - 1.2 mg/dL [facility] AST 22 0 - 32 U/L [facility] ALT 23 0 - 33 U/L [facility] Alkaline Phosphatase 146(H) 35 - 104 U/L [facility] 02/14/2021 11:4 8 AM CDT 02/14/2021 11:54 AM CDT Narrative Resulting Agency Comment ER us Blilie DORANTES LAB BLOOD ORDERABLE S Final Result [facility] [address] [place] [address], [facility] [phone] * (ABNORMAL) CBC with auto differential (02/14/2021 11:48 AM CDT) WBC 8.1 3.8 - 9.9 X10 3/ul [facility] RBC 4.28 3.90 - 5.20 x10 6/ul [facility] Hemoglobin 12.4 11.9 - 15.5 g/dL [facility] Hct 38.7 35.6 - 45.5 % [facility] MCV 90.4 81.3 - 96.4 fl [facility] MCH 29.0 27.1 - 33.3 pg [facility] MCHC 32.0(L) 32.3 - 35.7 g/dl [facility] RDW 13.4 11.1 - 14.9 % [facility] Plt Count 367 150 - 400 x10 3/ul [facility] MPV 9.3 9.1 - 12.3 fl [facility] Neut % 62.5 % [facility] Immature Gran % 0.4 % [facility] Lymph % 29.7 % [facility] Powell % 5.7 % [facility] Eos % 1.1 % [facility] AUTO BASO % 0.6 % [facility] NEUTROPHIL ABS # 5.0 1.7 - 6.5 x10 3/ul [facility] Immature Gran # 0.0 0.0 - 0.1 x10 3/ul [facility] Absolute Lymphs (auto) 2.4 0.8 - 3.3 x10 3/ul [facility] Absolute Monos (auto) 0.5 0.2 - 0.8 x10 3/ul [facility] Absolute Eos (auto) 0.1 0.0 - 0.5 x10 3/ul [facility] BASOPHIL ABS # 0.1 0.0 - 0.1 x10 3/ul [facility] Nucleat RBC Rel Count 0.0 #/100WBC [facility] NRBC abs 0.00 0.00 - 0.01 x10 3/ul [facility] Absolute Neutrophils 5,000 200 - 8,000 /ul [facility] 02/14/2021 11:4 8 AM CDT 02/14/2021 11:54 AM CDT Narrative Resulting Agency Comment ER us Billie DORANTES LAB BLOOD ORDERABLE S Final Result [facility] [address] [phone] documented in this encounter Visit Diagnoses Not on filedocumented in this encounter Care Teams Medicaid Biller Relationship Specialty Start Date End Date Angel Velez MD [address] [facility] [address] [place] [address] PCP - General 02/14/21 04/29/22 Bill Stoner MD [address] [facility] [address] [place] [address] 02/14/21 documented as of this encounter
--- OUTSIDE RECORDS SUMMARY | 2024-11-12 11:35 | XMS_ITS | Encounter Summary ---
Author Organization [facility] Address [address] [facility] [address] [place] [address] Phone Care Team Providers Care Phone Circuit Operator Name Role Phone Angel Velez MD Primary Care Provider [phone] Bill Stoner MD Unavailable [phone] Reason for Visit * Reason Onset Date Comments Appointment 08/19/2021 Encounter Details Date Type Department Care Team (Late st Contact Info) Description 08/19/2021 Telephone [facility] Obstetrics and Gynecology [facility] 7th Floor [address] [place] [address] Viki Espinoza, RN Appointment Social History Tobacco Use Types Packs/Day Years Used Date Smoking Tobacco: Never Smokeless Tobacco: Never Alcohol Use Standard Drinks/Week Comments Not Currently 0 (1 standard drink = 0.6 oz pur e alcohol) AUDIT-C Answer Date Recorded Q1: How often do you have a drink containing alc ohol? 2-3 times a week 07/16/2021 Q2: How many drinks containi ng alcohol do you have on a typical day when you are drinking? 1 or 2 07/16/2021 Q3: How often do you have si x or more drinks on one occasion? 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 Pt states that she will call back if appt does not work once she gets to work and can check her calendar. documented in this encounter Plan of Treatment Not on file documented as of this encounter Visit Diagnoses Not on filedocumented in this encounter Care Teams Phone Circuit Operator Relationship Specialty Start Date End Date Angel Velez MD [address] [facility] [address] [place] [address] PCP - General 02/14/21 04/29/22 Bill Stoner MD [address] [facility] [address] [place] [address] 02/14/21 documented as of this encounter
--- OUTSIDE RECORDS SUMMARY | 2024-11-12 11:35 | XMS_ITS | Encounter Summary ---
Author Organization [facility] Address [address] [facility] [address] [place] [address] Phone Care Team Providers Care Pipe Coverer Name Role Phone Angel Velez MD Primary Care Provider [phone] Bill Stoner MD Unavailable [phone] Reason for Visit * Reason Comments Gynecologic Exam Encounter Details Date Type Department Care Team (Late st Contact Info) Description 07/16/2021 3:00 PM CDT Office Visit [facility] Obstetrics and Gynecology [address] [facility] [address] [place] [address] Mariella Russ, MAJOR [address] [facility] [address] [place] [address] Well woman exam (Primary Dx); Spotting Social History Tobacco Use Types Packs/Day Years [...] on file 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 Gender Identity Not on file Sexual Orientation Not on file documented as of this encounter Last Filed Vital Signs Vital Sign Reading Time Taken Comments Blood Pressure 119/79 07/16/2021 2:21 PM CDT Pulse - - Temperature - - Respiratory Rate - - Oxygen Saturation - - Inhaled Oxygen Concentration - - Weight 94 kg (207 lb 3.2 oz) 07/16/2021 2:21 PM CDT Height 157.5 cm (5' 2 ) 07/16/2021 2:21 PM CDT Body Mass Index 37.9 07/16/2021 2:21 PM CDT documented in this encounter Patient Instructions * Patient Instructions* Mariella Russ NP - 07/16/2021 3:00 PM CDT Images from the original note were not included. Vaginal Dryness Bothersome symptoms of the vagina and vulva (outer lips of the vagina) increase during and after the menopause transition or may start several years after menopause. The decrease in estrogen with menopause is a major contributor to vaginal dryness, itching, burning, discomfort, and pain during intercourse or other sexual activity. Vaginal atrophy is the medical term that describes these changes. The genitourinary syndrome of menopause includes bothersome vaginal atrophy often combined with urinary symptoms. Vaginal atrophy may significantly affect your quality of life, sexual satisfaction, and relationship with your partner. Unlike hot flashes, which generally improve with time, vaginal symptoms typically worsen with time because of aging and a prolonged lack of estrogen. Menopause and aging can affect the vagina in the following ways: ? Vaginal tissues become thin, dry, and less elastic, with decreased secretions and lubrication ? Vaginal infections increase (as the healthy acidic pH of the vagina becomes more alkaline) ? Discomfort with urination and increased urinary tract infections can occur ? Fragile, dry, inflamed vaginal tissues may tear and bleed ? Women with menopause induced by cancer treatments may have additional injury to the vaginal tissues from chemotherapy or pelvic radiation ? Aromatase inhibitors, taken by many women with breast cancer, result in extremely low estrogen levels, often causing severe symptoms of vaginal dryness and decreased lubrication ? Vaginal changes often result in pain with sexual activity or pelvic exams ? Women with discomfort from vaginal atrophy often engage in less frequent intercourse or other sexual activity, which can cause the vagina to become shorter, narrower, and less elastic ? Pain, narrowing of the vagina, and involuntary tightening of vaginal and pelvic muscles (known asvaginismus) can intensify to the point where sexual intercourse or other sexual activity is no longer pleasurable or even possible Treatment options The good news is that effective treatment options, such as nonhormone remedies or different forms of low-dose estrogen applied directly to the vagina, are available. These can be combined for optimalsymptom relief. Nonhormone remedies ? Vaginal lubricants reduce discomfort with sexual activity when the vagina is dry by decreasing friction. Water-soluble products or those with silicone are advised, because the oil in some products may cause vaginal irritation. There are many effective brands available without a prescription. ? Vaginal moisturizers line the wall of the vagina and maintain vaginal moisture and should be usedseveral times weekly at bedtime. ? Regular sexual stimulation promotes vaginal blood flow and secretions. Sexual stimulation with a partner, alone, or with a device (such as a vibrator) can improve vaginal health. ? Expanding your views of sexual pleasure to include ???outercourse?? options such as extended caressing, mutual masturbation, and massage provide a way to remain sexually intimate in place of intercourse. ? Vaginal dilators can stretch and enlarge the vagina if it has become too short and narrow or if involuntary tightening occurs, preventing comfortable sexual activity. Dilators can be purchased and used with the guidance of a process stripper, physical therapist, or sex therapist. Remember, the vaginacan diminish in size, and its supporting muscles can weaken, so ???use it or lose it?? ! ? Pelvic floor exercises can strengthen weak vaginal muscles and relax tight ones. Vaginal estrogen therapy ? An effective and safe treatment, low-dose local estrogen is applied directly to the vagina to restore vaginal health and relieve vaginal dryness and discomfort with sexual activity. Improvements usually occur within a few weeks, although complete relief may take several months. This even may be an option for women with a history of breast or uterine cancer but only after carefulconsideration of risks and benefits with a healthcare provider and oncologist. ? Government-approved low-dose vaginal estrogen products are available by prescription as vaginal creams (used two or three nights/week), a vaginal estradiol tablet (used twice/week), and an estradiol vaginal ring (changed every 3 months). All are highly effective. You may wish to try several different forms and choose the one you prefer. ? Standard doses of estrogen therapy provided to treat hot flashes also treat vaginal dryness, although some women still benefit from additional low-dose vaginal estrogen treatment. If only vaginal symptoms are present, low doses of estrogen applied to the vagina are recommended. Other prescription therapies ? Ospemifene is an oral tablet taken daily for the treatment of painful intercourse caused by vaginal atrophy. Ospemifene is an estrogen agonist/antagonist, which means it works like estrogen in sometissues and opposes estrogen's actions in others. ? Dehydroepiandrosterone (DHEA) is a hormone-containing insert placed in the vagina nightly for thetreatment of painful intercourse caused by vaginal atrophy. Although DHEA can be converted in the body to other hormones, including estrogen, blood levels of hormones do not appear to increase with vaginal use of low-dose DHEA. Note: Vaginal symptoms not related to menopause include yeast infections, allergic reactions, and certain skin conditions, so consult your healthcare provider if symptoms do not improve with treatment. Treatment Options Summary Vaginal lubricants (nonprescription). Many available products. Vaginal moisturizers (nonprescription). Many available products. Vaginal estrogen therapy (prescription required) ? Estrace or Premarin vaginal cream (0.5-1 g, placed in vagina 2-3 times/week; generic available). ? Estring (small, flexible estradiol ring placed in vagina and changed every 3 months; 7.5 ??g/d). ? Vagifem (estradiol tablet placed in vagina twice/week; 10 ??g; generic available). ? Imvexxy (estradiol softgel insert placed in vagina twice/week; 4 ??g, 10 ??g). Vaginal ???exercise?? ? Sexual activity (with or without a partner). ? Stretching exercises with lubricated vaginal dilators. ? Pelvic floor physical therapy. Ospemifene (Osphena; prescription required). An oral tablet that treats painful intercourse caused by vaginal atrophy. Intravaginal dehydroepiandrosterone (Intrarosa; prescription required). A hormone vaginal insert that treats painful intercourse caused by vaginal atrophy. This MenoNote, developed by the [employer] Education [employer] of The [place] [employer], provides current general information but not specific medical advice. It is not intended to substitute for the judgment of a person's healthcare provider. Additional information can be found at www.menopause.org. Copyright ?? 2018 The [place] [employer]. All rights reserved. [facility] grants permissionto healthcare providers to reproduce this MenoNote for distribution to women in their quest for good health. Made possible by donations to the [facility] Education and Research Fund. documented in this encounter Progress Notes * Mariella Russ NP - 07/16/2021 3:00 PM CDT Well Woman Exam Chief Complaint Patient presents with ??? Gynecologic Exam Subjective: Mojgan Neves is a 56 y.o. who presents for a well woman exam. Reports she still has spotting when stressed out, not more than a liner. Pt reports that her menses has been irregular andspotting like for the past 2 years. In a monogamous relationship with spouse, reports vaginal dryness with the ocassional SI. Mojgan also reports some warm times occasionally but no night sweats or hot flashes specifically. Hx of an ablation for HMB previously with Dr. Cardenas. Menstrual History: Menarche Age: 11 years No LMP recorded (lmp unknown). Patient is postmenopausal. Period Pattern: None (Spotting) Sexual History: Sexual History Gender of sexual partners: Men Sexually Transmitted Infection History: None OB History 2 Para 2 Term 2 AB Living 2 SAB TAB Ectopic Multiple Live Births 2 # Outcome Date GA Labor/2nd Weight Sex Delivery Anes PTL Lv A1 A5 1 Term 1987 F CS-Unspec Living Complications: Failure to Progress in First Stage 2 Term 1990 F CS-Unspec Living Screening History Date of Last Pap if Known: 07/10/17 History of Abnormal Paps: No Ever had an HPV vaccine?: No Ever had a mammogram?: Yes Date of Mammogram: about one year ago per pt Mammogram result: Normal Ever had a colonoscopy?: Yes Date of Colonoscopy: 05/14/15 Colonoscopy Result: Abnormal Ever had a bone-density test?: Yes Date of bone-density test: unsure per pt Past Medical History: Diagnosis Date ??? Anxiety disorder Anxiety and depression - (Added by TW Conv) ??? Hypertension ??? Personal history of other diseases of the circulatory system History of hypertension - (Added by TW Conv) Past Surgical History: Procedure Laterality Date ??? [place] DELIVERY ONLY Section - (Added by TW Conv) ??? [place] HYSTEROSCOPY,W/ENDOMETRIAL ABLATION Hysteroscopy With Endometrial Ablation - (Added by TW Conv) ??? NH LIGATE FALLOPIAN TUBE Tubal Ligation - (Added by TW Conv) Current Outpatient Medications: ??? amLODIPine (NORVASC) 10 mg tablet, Take 10 mg by mouth daily, Disp: , Rfl: ??? DULoxetine DR (CYMBALTA) 30 mg capsule, , Disp: , Rfl: ??? fluticasone (FLONASE ALLERGY RELIEF) 50 mcg/actuation nasal spray, , Disp: , Rfl: ??? lisinopriL (PRINIVIL,ZESTRIL) 40 mg tablet, , Disp: , Rfl: No Known Allergies History reviewed. No pertinent family history. Social History Socioeconomic History ??? Marital status: Spouse name: None ??? Number of children: None ??? Years of education: None ??? Highest education level: None Occupational History ??? None Tobacco Use ??? Smoking status: Never Smoker ??? Smokeless tobacco: Never Used Substance and Sexual Activity ??? Alcohol use: Not Currently ??? Drug use: Never ??? Sexual activity: Yes Partners: Male control/protection: None Other Topics Concern ??? None Social History Narrative Being A Social Drinker : (Added by TW Conv) Occasional alcohol use : (Added by TW Conv) No illicit drug use : (Added by TW Conv) Always uses seat belt : (Added by TW Conv) Lack of exercise : (Added by TW Conv) Feels safe at home : (Added by TW Conv) : (Added by TW Conv) Social Determinants of Health Financial Resource Strain: ??? Difficulty of Paying Living Expenses: Not on file Food Insecurity: ??? Worried About Running Out of Food in the Last Year: Not on file ??? Ran Out of Food in the Last Year: Not on file Transportation Needs: ??? Lack of Transportation (Medical): Not on file ??? Lack of Transportation (Non-Medical): Not on file Physical Activity: ??? Days of Exercise per Week: Not on file ??? Minutes of Exercise per Session: Not on file Stress: ??? Feeling of Stress : Not on file Social Connections: ??? Frequency of Communication with Friends and Family: Not on file ??? Frequency of Social Gatherings with Friends and Family: Not on file ??? Attends Jew Services: Not on file ??? Active Member of Clubs or Organizations: Not on file ??? Attends Club or Organization Meetings: Not on file ??? Marital Status: Not on file Intimate Partner Violence: ??? Fear of Current or Ex-Partner: Not on file ??? Emotionally Abused: Not on file ??? Physically Abused: Not on file ??? Sexually Abused: Not on file Review of Systems Constitutional: No change in weight All other Review of Systems are Negative: All other Review of Systems are negative Have you been to the emergency room, urgent care, or hospital for any reason since the last visit: No Objective: BP 119/79 Ht 157.5 cm (5' 2 ) Wt 207 lb 3.2 oz (94 kg) LMP (LMP Unknown) BMI 37.90 kg/m?? Physical Exam Vitals reviewed. Constitutional: Appearance: She is well-developed. HENT: Head: Normocephalic and atraumatic. Eyes: Pupils: Pupils are equal, round, and reactive to light. Neck: Thyroid: No thyromegaly. Cardiovascular: Comments: Normal peripheral vascular exam Pulmonary: Effort: Pulmonary effort is normal. Chest: Breasts: Right: Normal. No nipple discharge. Left: Normal. No nipple discharge. Abdominal: General: There is no distension. Palpations: Abdomen is soft. Tenderness: There is no abdominal tenderness. There is no guarding. Genitourinary: Pelvic exam was performed with patient supine. Rectum normal, vagina normal and uterus normal. Right labia: normal. There is no rash, tenderness or lesion on the left labia. Left Labia: normal. There is no rash, tenderness or lesion on the left labia. Right adnexa: normal. Left adnexa: normal. Cervix: Normal exam. Genitourinary Comments: Paleness of the vagina and decreased rugosity noted. Right inguinal canal: normal. Left inguinal canal: normal. Musculoskeletal: General: Normal range of motion. Cervical back: Normal range of motion. Lymphadenopathy: Upper Body: Right upper body: No axillary adenopathy. Left upper body: No axillary adenopathy. Skin: General: Skin is warm and dry. Neurological: Mental Status: She is alert and oriented to person, place, and time. Psychiatric: Speech: Speech normal. Behavior: Behavior normal. Thought Content: Thought content normal. Judgment: Judgment normal. Assessment and Plan: Mojgan Neves is a 56 y.o. female who presents for a well woman exam. Diagnoses and all orders for this visit: Well woman exam 1. Maintenance: -- last pap smear 2016 NILM/HPV- due 2021 --neg CBE, last mammogram- number provided for breast red. --discussed diet/exercise --bone health: Ca/Vit D reviewed, weight bearing --colonoscopy 2014 due 2024 --contraception:none --STI screening: offered and pt declined --Smoking cessation: n/a -- PCP: maint labs done in 2020 -- Handouts: menopausal vaginal dryness Spotting - Estradiol; Future - Follicle stimulating hormone; Future Will call pt to review results, doesn't utilize mychart. If menopausal with f/u with Dr. Cardenas for recommendation and plan. PT aware and agrees with plan. RTC in one year for [employer] Brina Russ APRN, KRISTY-BC 07/16/2021 documented in this encounter Plan of Treatment Not on file documented as of this encounter Results * Follicle stimulating hormone (07/16/2021 3:36 PM CDT) FSH 60.8 IUnits/L [facility] Comment: Interpretive Data Male: Adults: ?1.5 - 12.4 IUnits/L Female: ?? Follicular: ?3.5 - 12.5 IUnits/L Ovulation: ? 4.7 - 21.5 IUnits/L Luteal: ?1.7 - 7.7 IUnits/L Postmenopausal: 25.8 - 134.8 IUnits/L Current interpretive data was last revised 2015. Blood 07/16/2021 3:36 PM CDT 07/16/2021 4:28 PM CDT Mariella Russ KIDNEY TRIMMER LAB BLOOD ORDERABLES Final Result Performing Organization Address [facility] de Phone Number [facility] Department [place] [address] * Estradiol (07/16/2021 3:36 PM CDT) Pathologist [facility] Estradiol 20.4 pg/mL [facility] Comment: Interpretive Data Male: ?11 - 43 pg/mL Female: ??Follicular ? 31 - 90 pg/mL ??Ovulation ?60 - 533 pg/mL ??Luteal ? 60 - 232 pg/mL ??Postmenopausal ?? < 50 ??pg/mL Patients treated with Fluvestrant (Faslodex) should be tested using an alternate assay such as LC-MS. Contact the [facility], , to request analysis by LC-MS. Current interpretive data was last revised 2020. Blood 07/16/2021 3:36 PM CDT 07/16/2021 4:28 PM CDT Mariella Russ NP LAB BLOOD ORDERABLES Final Result Performing Organization Address [facility] de Phone Number JEFF [facility] Department [place] [address] documented in this encounter Visit Diagnoses Diagnosis Well woman exam- Primary Routine general medical examination at a health care facility Spotting Other specified noninflammatory disorder of vagina documented in this encounter Discontinued Medications Medication Sig Discontinue Reason Start Date End Da te lisinopril (PRINIVIL,ZESTRIL) 20 mg tablet TK 1 T PO QD Formulary change 01/17/2019 07/16/2021 documented as of this encounter Historical Medications * This list may reflect changes made after this encounter. lisinopriL (PRINIVIL,ZESTRIL ) 40 mg tablet 07/10/2021 04/30/2022 amLODIPine (NORVASC) 10 mg tablet Take 10 mg by mouth daily 04/15/2021 04/30/2022 DULoxetine (CYMBALTA) 30 mg capsule 07/10/2021 04/30/2022 added in this encounter Care Teams Pipe Coverer Relationship Specialty Start Date End Date Angel Velez MD [address] [facility] [address] [place] [address] PCP - General 02/14/21 04/29/22 Bill Stoner MD [address] [facility] [address] [place] [address] 02/14/21 documented as of this encounter
--- OUTSIDE RECORDS SUMMARY | 2024-11-12 11:35 | XMS_ITS | Encounter Summary ---
Author Organization [facility] Healthcare Address [address] [place] [address] Care Team Providers Care Vocational Education Teacher Name Role Phone Bill Stoner MD Primary Care Provider [phone] Reason for Referral * Diagnostic Imaging (Routine) - Closed Specialty Diagnoses / Procedures Referred By Antonino ramirez Referred To Contact Diagnoses Dysphagia Procedures FL Esophagram Bill Stoner MD Phone: tel: fax: [address] [phone] Referral ID Status Reason Start Date Expiration Date Visits Re quested Visits Authorized [id number] Closed 03/31/2018 09/27/2018 1 1 Reason for Visit * Diagnostic Imaging (Routine) - Closed Specialty Diagnoses / Procedures Referred By Antonino ramirez Referred To Contact Diagnoses Dysphagia Procedures FL Esophagram Bill Stoner MD Phone: tel: fax: [address] [phone] Referral ID Status Reason Start Date Expiration Date Visits Re quested Visits Authorized [id number] Closed 03/31/2018 09/27/2018 1 1 Encounter Details Date Type Department Care Team (Latest Contact Info) Description 04/20/2018 7:16 AM CDT - 04/20/2018 11:59 PM CDT Hospital Encounter [facility] [address] [place] [address] Bill Stoner MD [address] [facility] [address] [place] [address] Dysphagia Discharge Disposition: Discharge to home or self care Social History Tobacco Use Types Packs/Day Years Used Date Smoking Tobacco: Never Comments Unknown Sex and Gender Information Value Date Recorded Sex Assigned at Not on file 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 Gender Identity Not on file Sexual Orientation Not on file documented as of this encounter Discharge Disposition Disposition Code Departure Means Destination Discharge to home or self care documented in this encounter Plan of Treatment Not on file documented as of this encounter Procedures Procedure Name Priority Date/Time Associated Diagnosis Comments FL ESOPHAGRAM, SINGLE CONTRAST Schedule Routine, Read Routine (OP Routine) 04/20/2018 8:30 AM CDT Dysphagia documented in this encounter Results * FL Esophagram (04/20/2018 8:30 AM CDT) Anatomical Region Laterality Modality Body N/A Radio Fluoroscop y 04/20/2018 12:0 1 PM CDT Impressions 04/20/2018 1:19 PM CDT Normal esophagram with small hiatal hernia. Electronically signed by: Zay Melgar Jr., M.D. Narrative 04/20/2018 1:19 PM CDT EXAMINATION: BARIUM ESOPHAGRAM HISTORY: Dysphagia and feeling of food being stuck in her throat intermittently with swallowing. TECHNIQUE: The patient was given barium as well as effervescent crystals to drink, and multiple fluoroscopic and conventional overhead radiographs were obtained. FINDINGS: The patient's swallowing function is normal. The esophageal mucosa is normal without fold abnormalities or masses. The esophageal motility is normal. There is passage of contrast through a normal gastroesophageal junction. There is a small hiatal hernia. The visualized portions of the stomach are normal. No reflux was elicited with provocative maneuvers. Procedure Note Zay Melgar MD - 04/20/2018 EXAMINATION: BARIUM ESOPHAGRAM HISTORY: Dysphagia and feeling of food being stuck in her throat intermittently with swallowing. TECHNIQUE: The patient was given barium as well as effervescent crystals to drink, and multiple fluoroscopic and conventional overhead radiographs were obtained. FINDINGS: The patient's swallowing function is normal. The esophageal mucosa is normal without fold abnormalities or masses. The esophageal motility is normal. There is passage of contrast through a normal gastroesophageal junction. There is a small hiatal hernia. The visualized portions of the stomach are normal. No reflux was elicited with provocative maneuvers. IMPRESSION: Normal esophagram with small hiatal hernia. Electronically signed by: Zay Melgar Jr., M.D. Bill Stoner MD IMG FLUOROSCOPY PROCEDURES Fin al Result documented in this encounter Visit Diagnoses Diagnosis Dysphagia documented in this encounter Administered Medications Inactive Administered Medications - up to 3 most recent administrations Medication Order MAR Action Action Date Dose Rate Site barium sulfate (E-Z DISK) 700 mg tablet 700 mg 700 mg, oral, Once in imaging, contrast, Starting on Thu04/20/18 at 0835, For 1 dose, Indications: Digestive System RadiographyIndications:Digestive System Radiography Given 04/20/2018 8:16 AM CDT 700 mg barium sulfate (E-Z-HD) 98 % suspension 100 mL 100 mL (1 Bottle), oral, Once in imaging, contrast, Starting on Thu04/20/18 at 0835, For 1 dose, Indications: Digestive System RadiographyIndications:Digestive System Radiography Given 04/20/2018 8:00 AM CDT 40 mL barium sulfate (E-Z-PAQUE) 96 % (w/w) suspension 100 mL 100 mL (1 Bottle), oral, Once in imaging, contrast, Starting on Thu04/20/18 at 0835, For 1 dose, Indications: Digestive System RadiographyIndications:Digestive System Radiography Given 04/20/2018 8:20 AM CDT 100 mL sod bicarbonate-citric acid-simethicone (EZ-GAS II) effervescent granules 1 packet 1 packet, oral, Once in imaging, contrast, Starting on Thu04/20/18 at 0835, For 1 dose Given 04/20/2018 8:15 AM CDT 1 packet documented in this encounter Care Teams Vocational Education Teacher Relationship Specialty Start Date End Date Bill Stoner MD [address] [facility] [address] [place] [address] PCP - General 01/27/17 02/13/21 documented as of this encounter
--- OUTSIDE RECORDS SUMMARY | 2024-11-12 11:35 | XMS_ITS | Encounter Summary ---
Author Organization [facility] Address [address] [address] Care Team Providers Care Sumo Wrestler Name Role Phone Bill Stoner MD Unavailable [phone] Davin Mcgrath MD Primary Care Provider + Reason for Referral * Diagnostic Imaging (Routine) - Closed Specialty Diagnoses / Procedures Referred By Contac t Referred To Contact Diagnoses Encounter for screening mammogram for malignant neoplasm of breast Procedures SCREENING MAMMOGRAM BILATERAL Davin Mcgrath MD [address] [place] [address] Phone: tel: fax: Unknown Place of Service fax: Referral ID Status Reason Start Date Expiration Date Visits Re quested Visits Authorized [id number] Closed 11/05/2022 12/05/2023 1 1 ACE PUNCHER Reason for Visit * Reason Comments Annual Exam Encounter Details Date Type Department Care Team ([facility] st Contact Info) Description 11/05/2022 4:00 PM FURNACE PUNCHER Office Visit [facility] Primary Care [facility] [phone] Davin Mcgrath MD [address] [place] [id number] Annual physical exam (Primary Dx); Hypertension, essential; ARJUN (generalized anxiety disorder); Moderate episode of recurrent major depressive disorder (HCC); Gastroesophageal reflux disease without esophagitis; Non-seasonal allergic rhinitis due to other allergic trigger; Snoring; Obesity (BMI 30-39.9); Encounter for screening mammogram for malignant neoplasm of breast; Need for vaccination Social History Tobacco Use Types Packs/Day Years [...] on file 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 Gender Identity Not on file Sexual Orientation Not on file documented as of this encounter Last Filed Vital Signs Vital Sign Reading Time Taken Comments Blood Pressure 132/84 11/05/2022 3:58 PM FURNACE PUNCHER Pulse 95 11/05/2022 3:58 PM FURNACE PUNCHER Temperature 36.1 ??C (97 ??F) 11/05/2022 3:58 PM FURNACE PUNCHER Respiratory Rate 18 11/05/2022 3:58 PM FURNACE PUNCHER Oxygen Saturation 96% 11/05/2022 3:58 PM FURNACE PUNCHER Inhaled Oxygen Concentration - - Weight 94.3 kg (208 lb) 11/05/2022 3:58 PM FURNACE PUNCHER Height 154.9 cm (5' 1 ) 11/05/2022 3:58 PM FURNACE PUNCHER Body Mass Index 39.3 11/05/2022 3:58 PM FURNACE PUNCHER documented in this encounter Ordered Prescriptions Prescription Sig Dispense Quantity Refills Last Filled Start Date End Date fluticasone propionate (FLONASE) 50 mcg/actuation nasal sprayIndications:N on-seasonal allergic rhinitis due to other allergic trigger Administer 1 spray into each nostril daily 3 each 3 11/05/2022 fexofenadine (FEDERICA) 180 mg tabletIndications: Non-seasonal allergic rhinitis due to other allergic trigger Take 1 tablet (180 mg total) by mouth daily as needed (allergies) 90 tablet 3 11/05/2022 omeprazole (PriLOSEC) 40 mg capsuleIndications :Gastroesophageal reflux disease without esophagitis Take 1 capsule (40 mg total) by mouth daily 90 capsule 3 11/05/[address] (CYMBALTA) 30 mg capsuleIndications :ARJUN (generalized anxiety disorder),Moderate episode of recurrent major depressive disorder (HCC) Take 1 capsule (30 mg total) by mouth daily 90 capsule 3 11/05/2022 3 lisinopriL (PRINIVIL,ZESTRIL) 40 mg tabletIndications: Hypertension, essential Take 1 tablet (40 mg total) by mouth daily 90 tablet 3 11/05/2022 3 amLODIPine (NORVASC) 10 mg tabletIndications: Hypertension, essential Take 1 tablet (10 mg total) by mouth daily 90 tablet 3 11/05/2022 3 documented in this encounter Progress Notes * Davin Mcgrath MD - 11/05/2022 4:00 PM CST Images from the original note were not included. Subjective/Objective Patient ID: Mojgan Neves is a 57 y.o. female. Chief Complaint Annual Exam Vitals: 11/05/22 1558 BP: 132/84 BP Location: Left arm Patient Position: Sitting Pulse: 95 Resp: 18 Temp: 36.1 ??C (97 ??F) TempSrc: Temporal SpO2: 96% Weight: 94.3 kg (208 lb) Height: 154.9 cm (5' 1 ) HPI: Mojgan Neves is a 57 y.o. female here today for the following concerns: Annual exam - due for labs. Only exercising occasionally. Due for mammogram. Up to date on colonoscopy. - working on weight loss with diet changes. - c/o snoring regularly and unrestful sleep. Awakes in AM still fatigued. No prior sleep study. Chronic Medical Conditions: Hypertension - on amlodipine 10mg daily and lisinopril 40mg daily GERD - on omeprazole 40mg daily Depression/ARJUN - on cymbalta 30mg daily Allergic Rhinitis - on flonase daily Health Maintenance: - Colonoscopy (45-75): age 50 - normal; due 2024 - Tobacco history: Never used - Exercise: occasional - Mammogram (50-74): 2020 - Pap (21-65): 2020 Specialists Involved in Care: - Mammography Technician - Dr Davila Health Maintenance Topic Date Due Cervical Cancer Screening-Pap and HPV Never done Breast Cancer Screening-Mammogram Never done Hepatitis C Screening Never done DTaP/Tdap/Td Vaccine (1 - Tdap) Never done Zoster Vaccines Never done Covid-19 Vaccine (2 - Moderna series) 12/26/2020 Influenza Vaccine (1) Never done Regular Well Visit/Exam 18-64 07/16/2022 Depression Screening-PHQ 11/05/2023 Colon Cancer Screening-Colonoscopy 05/14/2025 Pneumococcal vaccine [...] HENT: Head: Normocephalic and atraumatic. Right Ear: Tympanic membrane and external ear normal. Left Ear: Tympanic membrane and external ear normal. Mouth/Throat: Mouth: Mucous membranes are moist. Pharynx: [...] - encouraged regular exercise and weight loss Hypertension, essential Assessment & Plan: - stable [...] capsule (30 mg total) by mouth daily Moderate episode of recurrent major depressive disorder (HCC) Assessment & Plan: - stable - continue current medication Orders: - DULoxetine DR (CYMBALTA) 30 mg capsule; Take 1 capsule (30 mg total) by mouth daily Gastroesophageal reflux disease without esophagitis Assessment & Plan: - stable - continue current medication Orders: - omeprazole (PriLOSEC) 40 mg capsule; Take 1 capsule (40 mg total) by mouth daily Non-seasonal allergic rhinitis due to other allergic trigger Assessment & Plan: - stable - continue current medication Orders: - fexofenadine (FEDERICA) 180 mg tablet; Take 1 tablet (180 mg total) by mouth daily as needed (allergies) - fluticasone propionate (FLONASE) 50 mcg/actuation nasal spray; Administer 1 spray into each nostril daily Snoring Assessment & Plan: - uncontrolled, possible ENOCH - rec weight loss - will ref to sleep med - pt to call back when ready to f/u with referral Obesity (BMI 30-39.9) Encounter for screening mammogram for malignant neoplasm of breast - SCREENING MAMMOGRAM BILATERAL Need for vaccination - Varicella-zoster HZV IM Orders Placed This Encounter Procedures SCREENING MAMMOGRAM BILATERAL Order Specific Question: Is the patient ? Answer: No Order Specific Question: Clinical question to be answered: Answer: Routine breast cancer screening Order Specific Question: Where should this order be performed? Answer: External Order [171] Varicella-zoster HZV IM *This note is dictated using [employer] voice recognition software, variances in spelling and vocabulary are possible and unintentional.* Davin Mcgrath MD ACE PUNCHER documented in this encounter Miscellaneous Notes * Assessment & Plan Note - Davin Mcgrath MD - 11/05/2022 4:46 PM FURNACE PUNCHER Associated Problem(s): Snoring - uncontrolled, possible ENOCH - rec weight loss - will ref to sleep med - pt to call back when ready to f/u with referral ACE PUNCHER * Assessment & Plan Note - Davin Mcgrath MD - 11/05/2022 4:46 PM FURNACE PUNCHER Associated Problem(s): Annual physical exam - Reviewed with the patient BMI, blood pressure, diet, exercise, and encouraged healthy lifestyle choices. - Screened for high risk behaviors, diet and exercise habits, and symptoms of depression. - check screening labs - encouraged regular exercise and weight loss ACE PUNCHER * Assessment & Plan Note - Davin Mcgrath MD - 11/05/2022 4:46 PM FURNACE PUNCHER Associated Problem(s): Moderate episode of recurrent major depressive disorder (HCC) - stable - continue current medication ACE PUNCHER * Assessment & Plan Note - Davin Mcgrath MD - 11/05/2022 4:46 PM FURNACE PUNCHER Associated Problem(s): ARJUN (generalized anxiety disorder) - stable - continue current medication ACE PUNCHER * Assessment & Plan Note - Davin Mcgrath MD - 11/05/2022 4:46 PM FURNACE PUNCHER Associated Problem(s): Allergic rhinitis due to allergen - stable - continue current medication ACE PUNCHER * Assessment & Plan Note - Davin Mcgrath MD - 11/05/2022 4:45 PM FURNACE PUNCHER Associated Problem(s): Hypertension, essential - stable - continue current medication ACE PUNCHER * Assessment & Plan Note - Davin Mcgrath MD - 11/05/2022 4:45 PM FURNACE PUNCHER Associated Problem(s): Gastroesophageal reflux disease without esophagitis - stable - continue current medication ACE PUNCHER documented in this encounter Plan of Treatment Scheduled Orders Name Type Priority Associated Diagnoses Orde r Schedule SCREENING MAMMOGRAM BILATERAL Imaging Schedule Routine, Read Routine (OP Routine) Encounter for screening mammogram for malignant neoplasm of breast Ordered: 11/05/2022 documented as of this encounter Visit Diagnoses Diagnosis Annual physical exam- Primary Routine general medical examination at a health care facility Hypertension, essential Unspecified essential hypertension ARJUN (generalized anxiety disorder) Generalized anxiety disorder Moderate episode of recurrent major depressive disorder (HCC) Gastroesophageal reflux disease without esophagitis Esophageal reflux Non-seasonal allergic rhinitis due to other allergic trigger Snoring Other dyspnea and respiratory abnormality Obesity (BMI 30-39.9) Encounter for screening mammogram for malignant neoplasm of breast Need for vaccination Need for prophylactic vaccination and inoculation against unspecified single disease documented in this encounter Discontinued Medications Medication Sig Discontinue Reason Start Date End Da te omeprazole (PriLOSEC) 40 mg capsule Reorder 08/23/2021 11/05/[address] (CYMBALTA) 30 mg capsuleIndications:Mod erate episode of recurrent major depressive disorder (HCC),ARJUN (generalized anxiety disorder) Take 1 capsule (30 mg total) by mouth daily Reorder 04/30/2022 11/05/2022 amLODIPine (NORVASC) 10 mg tabletIndications:Hype rtension, essential Take 1 tablet (10 mg total) by mouth daily Reorder 04/30/2022 11/05/2022 fluticasone propionate (FLONASE) 50 mcg/actuation nasal sprayIndications:Non-s easonal allergic rhinitis due to other allergic trigger Administer 1 spray into each nostril daily Reorder 04/30/2022 11/05/2022 lisinopriL (PRINIVIL,ZESTRIL) 40 mg tabletIndications:Hype rtension, essential Take 1 tablet (40 mg total) by mouth daily Reorder 04/30/2022 11/05/2022 fexofenadine (FEDERICA) 180 mg tabletIndications:Non- seasonal allergic rhinitis due to other allergic trigger Take 1 tablet (180 mg total) by mouth daily as needed (allergies) Reorder 04/30/2022 11/05/2022 documented as of this encounter Orders Immunization/Injection Count Last Ordered Date First Ordered Date ZOSTER (SHINGLES) HZV IM 1 11/05/2022 documented in this encounter Care Teams Sumo Wrestler Relationship Specialty Start Date End Date Davin Mcgrath MD [address] [address] PCP - General Family Medicine 04/30/22 Bill Stoner MD [address] [facility] [address] [place] [address] 02/14/21 documented as of this encounter
--- OUTSIDE RECORDS SUMMARY | 2024-11-12 11:35 | XMS_ITS | Encounter Summary ---
Author Organization [facility] Address [address] [place] [address] Phone Care Team Providers Care Receiving Associate Store Name Role Phone Bill Stoner MD Primary Care Provider [phone] Reason for Visit * Reason Comments Annual Exam Encounter Details Date Type Department Care Team (Late st Contact Info) Description 02/04/2019 1:00 PM CDT Office Visit [facility] Obstetrics and Gynecology [address] [facility] 7th [address] [place] [address] Nicci Cardenas MD [address] [facility] [phone] [place] [address] Well woman exam (Primary Dx); Visit for screening mammogram Social History Tobacco Use Types Packs/Day Years Used Date Smoking Tobacco: Never Smokeless Tobacco: Never Alcohol Use Standard Drinks/Week Comments Not Currently 0 (1 standard drink = 0.6 oz pur e alcohol) Comments Unknown Sex and Gender Information Value Date Recorded Sex Assigned at Not on file 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 Annual Exam Subjective: Mojgan Neves is a 54 y.o. who presents for a well woman exam. She has no complaints. Menstrual History: Patient's last menstrual period was 01/12/2019 (exact date). Period Pattern: Regular Menstrual Flow: Heavy Dysmenorrhea: (!) Moderate Dysmenorrhea Symptoms: Cramping Sexual History: Sexual History Sexually Transmitted Infection History: None OB History 2 Para 2 Term 2 AB Living 2 SAB TAB Ectopic Multiple Live Births 2 # Outcome Date GA Labor/2nd Weight Sex Delivery Anes PTL Lv A1 A5 1 Term 1987 F CS-Unspec Living Complications: Failure to Progress in First Stage 2 Term 1990 F CS-Unspec Living Past Medical History: Diagnosis Date ??? Anxiety disorder Anxiety and depression - (Added by TW Conv) ??? Hypertension ??? Personal history of other diseases of the circulatory system History of hypertension - (Added by TW Conv) Current Outpatient Medications: ??? fluticasone (FLONASE ALLERGY RELIEF) 50 mcg/actuation nasal spray, , Disp: , Rfl: ??? lisinopril (PRINIVIL,ZESTRIL) 20 mg tablet, TK 1 T PO QD, Disp: , Rfl: 3 No Known Allergies History reviewed. No pertinent family history. Social History Socioeconomic History ??? Marital status: Spouse name: None ??? Number of children: None ??? Years of education: None ??? Highest education level: None Occupational History ??? None Social Needs ??? Financial resource strain: None ??? Food insecurity: Worry: None Inability: None ??? Transportation needs: Medical: None Non-medical: None Tobacco Use ??? Smoking status: Never Smoker ??? Smokeless tobacco: Never Used Substance and Sexual Activity ??? Alcohol use: Not Currently ??? Drug use: Never ??? Sexual activity: Yes Partners: Male Lifestyle ??? Physical activity: Days per week: None Minutes per session: None ??? Stress: None Relationships ??? Social connections: Talks on phone: None Gets together: None Attends jewish service: None Active member of club or organization: None Attends meetings of clubs or organizations: None Relationship status: None ??? Intimate partner violence: Fear of current or ex partner: None Emotionally abused: None Physically abused: None Forced sexual activity: None Other Topics Concern ??? None Social History Narrative Being A Social Drinker : (Added by [employer]) Occasional alcohol use : (Added by [employer]) No illicit drug use : (Added by [employer]) Always uses seat belt : (Added by [employer]) Lack of exercise : (Added by [employer]) Feels safe at home : (Added by [employer]) : (Added by [employer]) ROS: GENERAL: Appetite good, no fevers, night sweats, no weight loss/gain EYES: No visual changes ENT: No hearing loss, sinus problems, dental problems, or difficulty swallowing CV: No chest pain, shortness of breath or peripheral edema, no MVP, no palpitations HEME/LYMPH: No easy bleeding/bruising or swollen nodes RESPIRATORY: No cough, wheezing or dyspnea GI: No nausea/vomiting, abdominal pain, or change in bowel habits : No dysuria, hematuria, urgency or incontinence BREASTS: No masses, discharge, pain UNINDENTURED APPRENTICE: No pelvic pain, discharge, abnormal bleeding, sexual or menopausal complaints SKIN: No rashes, lesions, or abnormal hair growth/loss MS: No joint pain/swelling or musculoskeletal deformities NEURO: No MS changes, no motor weakness, no sensory changes, no headaches ENDOCRINE: No Diabetes or Thyroid disease, polyuria/polydipsia, no heat intolerance PSYCH: No depression or anxiety, no forgetfulness Objective: BP 148/92 Ht 157.5 cm (5' 2 ) Wt 202 lb (91.6 kg) LMP 01/12/2019 (Exact Date) BMI 36.95 kg/m?? Physical Exam: CONSTITUTIONAL: Well developed. Well nourished. HEENT: Thyroid nontender/not enlarged. RESPIRATORY: clear to auscultation bilaterally. Normal respiratory effort. CARDIOVASCULAR: Regular rate and rhythm. Normal heart sounds. No murmurs. Normal peripheral vascular exam. GASTROINTESTINAL: Abdomen, soft and nontender. No hernias. No hepatosplenomegaly. LYMPHATIC: No axillary or inguinal nodes palpated. SKIN: Normal inspection. BREASTS: No masses or lumps. Nontender. Without discharge. GENITOURINARY: External Genitalia: Normal appearance, no lesions. Urethral Meatus: Normal size and location. No lesions or prolapse. Urethra: No masses or tenderness. Bladder: No masses or tenderness. Vagina: No abnormal discharge. Good pelvic support. Cervix: No lesions. Uterus: Mobile, nontender Adnexa/Parametrial: No palpable masses, no tenderness. Assessment and Plan: Mojgan Neves is a 54 y.o. female who presents for a well woman exam. 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 Nicci Cardenas MD 02/04/2019 documented in this encounter Miscellaneous Notes * Addendum Note - Argenis Woo - 02/04/2019 1:00 PM CDTAddended by: ARGENIS WOO on: 02/04/2019 01:48 PM Modules accepted: Orders, SmartSet * Addendum Note - Argenis Woo - 02/04/2019 1:00 PM CDTAddended by: ARGENIS WOO on: 02/04/2019 01:48 PM Modules accepted: Orders documented in this encounter Plan of Treatment Not on file documented as of this encounter Visit Diagnoses Diagnosis Well woman exam- Primary Routine general medical examination at a health care facility Visit for screening mammogram documented in this encounter Historical Medications * This list may reflect changes made after this encounter. lisinopril (PRINIVIL,ZESTRIL) 20 mg tablet TK 1 T PO QD 3 01/17/2019 07/16/2021 fluticasone propionate (FLONASE) 50 mcg/actuation nasal spray 04/30/2022 added in this encounter Care Teams Receiving Associate Store Relationship Specialty Start Date End Date Bill Stoner MD [id number] [place] [address] PCP - General 01/27/17 02/13/21 documented as of this encounter
--- OUTSIDE RECORDS SUMMARY | 2024-11-12 11:35 | XMS_ITS | Encounter Summary ---
Author Organization [facility] Address [address] [facility] [address] [place] [address] Phone Care Team Providers Care Human Resources Hr Generalist Name Role Phone Angel Velez MD Primary Care Provider [phone] Bill Stoner MD Unavailable Reason for Visit * Reason Comments EMB * Procedure (Routine) - Closed Specialty Diagnoses / Procedures Referred By Contbecky t Referred To Contact Diagnoses PMB (postmenopausal bleeding) Procedures Endometrial biopsy Nicci Cardenas MD [address] [facility] [phone] [place] [address] Phone: tel: fax: [facility] (All Locations) Referral ID Status Reason Start Date Expiration Date Visits Re quested Visits Authorized [id number] Closed 08/19/2021 09/18/2022 1 2 Encounter Details Date Type Department Care Team (Late st Contact Info) Description 08/29/2021 9:15 AM CDT Office Visit [facility] Obstetrics and Gynecology [address] [facility] Outpatient Health 7th Floor [address] [place] [address] Nicci Cardenas MD [address] 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 female Subjective Chief Complaint: PMB HPI 56yo here for PMB episodes- small amounts on wiping. No cramping pains. Histories Medical She has a past medical history of Anxiety disorder, Hypertension, and Personal history of other diseases of the circulatory system. Surgical She has a past surgical history that includes pr delivery only; pr ligate fallopian tube; and pr hysteroscopy,w/endometrial ablation. TRANSPORT TECH History Menstrual History: Patient's last menstrual period was 11/02/2018. Sexual History: OB History 2 Para 2 Term 2 AB Living 2 SAB TAB Ectopic Multiple Live Births 2 # Outcome Date GA Labor/2nd Weight Sex Delivery Anes PTL Lv A1 A5 1 Term 1987 F CS-Unspec Living Complications: Failure to Progress in First Stage 2 Term 1990 F CS-Unspec Living Family Her History reviewed. No pertinent family history. Social Patient reports that she has never smoked. She has never used smokeless tobacco. She reports previous alcohol use. She reports that she does not use drugs. Meds Current Outpatient Medications: ??? amLODIPine (NORVASC) 10 mg tablet, Take 10 mg by mouth daily, Disp: , Rfl: ??? DULoxetine DR (CYMBALTA) 30 mg capsule, , Disp: , Rfl: ??? lisinopriL (PRINIVIL,ZESTRIL) 40 mg tablet, , Disp: , Rfl: ??? omeprazole (PriLOSEC) 40 mg capsule, , Disp: , Rfl: ??? fluticasone (FLONASE ALLERGY RELIEF) 50 mcg/actuation nasal spray, , Disp: , Rfl: Allergies Patient has No Known Allergies. Objective BP 129/81 Ht 157.5 cm (5' 2 ) Wt 206 lb (93.4 kg) LMP 11/02/2018 BMI 37.68 kg/m?? Physical Exam CONSTITUTIONAL: Well developed. Well nourished. GENITOURINARY: External Genitalia: Normal appearance, no lesions. Urethral Meatus: Normal size and location. No lesions or prolapse. Urethra: No masses or tenderness. Bladder: No masses or tenderness. Vagina: No abnormal discharge. Good pelvic support. Cervix: No lesions. Stenosed os Uterus: Mobile, nontender Adnexa: no palpable masses, no tenderness. 08/29/2021 Faye Neves 1965 Procedure: Endometrial biopsy Indication: Postmenopausal bleeding Cervix Prepped with: Betadine Tenaculum Applied: Yes Os dilated: Yes Uterus: anteverted Endocervical curettage performed: No Endometrial biopsy performed with adequate specimen obtained. Complications: none Tenaculum site was noted to be hemostatic after direct pressure Post procedure instructions reviewed and information sheet given Specimen to pathology. Recommendations: due to cervical stenosis and several attempts to enter the cavity, due to pt's discomfort- obtained sample distally. Not certain endometrial sampling was able to be collected. Pt aware- will await path findings. Assessment/Plan 1. PMB (postmenopausal bleeding) - Endometrial biopsy - will await path to determine if endo sampling was obtained or not; if not, will proceed with TV formal US imaging and then if thickened, for same day surgery D&C sampling #) RTC- prn, next WWE documented in this encounter Plan of Treatment Not on file documented as of this encounter Procedures Procedure Name Priority Date/Time Associated Diagnosis Comments ENDOMETRIAL BIOPSY Routine 08/29/2021 9:51 AM CDT PMB (postmenopausal bleeding) documented in this encounter Results * Surgical pathology (08/29/2021 9:52 AM CDT) Tissue (Endometrial biopsy) 08/29/2021 9:52 AM CDT 08/29/2021 1:26 PM CDT Narrative PATHOLOGY BJ - 08/30/2021 2:28 PM CDT EPIC results best viewed via link to PDF [facility] [place] [address] Note to Patients: This report may contain a detailed description of human tissue sent by a health care provider to the laboratory for pathologic evaluation. The content of this report is essential for diagnosis and may provide important critical findings. This information may be unfamiliar to patients to review without a medical professional present. It is advised that the patient review this report in the presence of a health care provider who can answer questions and explain the details. SURGICAL PATHOLOGY REPORT FINAL Patient Name: ?? FAYE NEVES Gender: ??F : ??1965 (Age: 56) Address: ??[address] [place] [address] Hospital #: ??[id number] Taken:08/29/2021 Received:08/29/2021 Reported: 08/30/2021 Patient Type: [facility] Ref Lab ?? Service: Laboratory Location: [facility] Physician(s): ??Nicci Cardenas M.D. Diagnosis: Uterus, endometrium, biopsy ? - Inactive pattern endometrium - Fragments of unremarkable endocervical mucosa ? - No evidence of endometrial hyperplasia or malignancy hxc/08/30/2021 12:04 By this signature, I attest that the above diagnosis is based upon my personal examination of the slides(and/or other material indicated in the diagnosis). Dwayne Figueredo M.D., Ph.D. Report Electronically Reviewed and Signed Out By ??Dwayne Figueredo M.D., Ph.D. 08/30/2021 14:28:36 Microscopic Description and Comment: Microscopic examination substantiates the above cited diagnosis. Shalom Beavers MD History: The patient is a 56-year-old woman presenting for postmenopausal bleeding. ??Operative procedure: Endometrial biopsy. Specimen(s) Received: A: Endometrial biopsy / curettings Gross Description: Received in formalin labeled PMB . ??It consists of a 2.8 x 2.2 x 0.3 cm aggregate of red and cortez tissue fragments, admixed with hemorrhagic material. ??Labeled A1. ??Jar 0. sxst/08/29/2021 17:42 PA(s): Stephanie Quarles By this signature, I attest that the above diagnosis is based upon my personal examination of the slides(and/or other material). Addenda/Procedures The performance characteristics of some immunohistochemical stains, fluorescence in-situ hybridization tests and immunophenotyping by flow cytometry cited in this report (if any) were determined by the Surgical Pathology and Flow Cytometry Departments at [facility] as part of an ongoing quality systems engineer program and in compliance with federally mandated regulations drawn from the Clinical Laboratory Improvement Act of 1988 (CLIA '88). ??Some of these tests rely on the use of analyte specific reagents and are subject to specific labeling requirements by the US Food and Drug Administration. ??Such diagnostic tests may only be performed in a facility that is certified by the Department of Health and Human Services as a high complexity laboratory under CLIA '88. ??The FDA has determined that such clearance or approval is not necessary. ??This test is used for clinical purposes. ??It should not be regarded as investigational or for research. ??Nevertheless, federal rules concerning the medical use of analyte specific reagents require that the following disclaimer be attached to the report: This test was developed and its performance characteristics determined by the Surgical Pathology and Flow Cytometry Departments of [facility]. ??It has not been cleared or approved by the U. S. Food and Drug Administration. IMAGES AND SCANNED DOCUMENTS, IF INCLUDED, ONLY VIEWABLE IN PDF VERSION OF REPORT us Nicci Cardenas MD LAB PATHOLOGY ORDERABLES Peggy l Result PATHOLOGY [facility] 3rd Floor [place], [place] [phone] * Endometrial biopsy (08/29/2021 9:51 AM CDT) Nicci Cardenas MD IN CLINIC/BEDSIDE ORDERABLES Final Result documented in this encounter Visit Diagnoses Diagnosis PMB (postmenopausal bleeding) Postmenopausal bleeding PMB (postmenopausal bleeding) Postmenopausal bleeding documented in this encounter Historical Medications * This list may reflect changes made after this encounter. Medication Sig Dispense Quantity Refills Last Filled Start D ate End Date omeprazole (PriLOSEC) 40 mg capsule 08/23/2021 11/05/2022 added in this encounter Care Teams Human Resources Hr Generalist Relationship Specialty Start Date End Date Angel Velez MD [address] [facility] [address] [place] [address] PCP - General 02/14/21 04/29/22 Bill Stoner MD [address] [facility] [address] [place] [address] 02/14/21 documented as of this encounter
--- OUTSIDE RECORDS SUMMARY | 2024-11-12 11:35 | XMS_ITS | Encounter Summary ---
Author Organization [facility] Healthcare Address [address] [place] [address] Care Team Providers Care Business Functional Analyst Name Role Phone Angel Velez MD Primary Care Provider [phone] Bill Stoner MD Unavailable [phone] Encounter Details Date Type Department Care Team (Late st Contact Info) Description 07/16/2021 3:35 PM CDT Lab [facility] Outpatient Health [place], [place] [phone] Mariella Russ NP [address] [phone] Delia Desir MD [address] [facility] [phone] [place], [place] [phone] Spotting Discharge Disposition: Discharge to home or self [...] on file 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 Gender Identity Not on file Sexual Orientation Not on file documented as of this encounter Discharge Disposition Disposition Code Departure Means Destination Discharge to home or self care documented in this encounter Plan of Treatment Not on file documented as of this encounter Procedures Procedure Name Priority Date/Time Associated Diagnosis Comments ESTRADIOL Routine 07/16/2021 3:36 PM CDT Spotting FOLLICLE STIMULATING HORMONE Routine 07/16/2021 3:36 PM CDT Spotting documented in this encounter Results * Estradiol (07/16/2021 3:36 PM CDT) Estradiol 20.4 pg/mL JEFF LOPES Comment: Interpretive Data Male: ?11 - 43 [...] 3:36 PM CDT 07/16/2021 4:28 PM CDT us Mariella Russ HIMS CLERK LAB BLOOD ORDERABLES Final Result JEFF LOPES [facility] Department [place] [address] * Follicle stimulating hormone (07/16/2021 3:36 PM CDT) FSH 60.8 IUnits/L JEFF LOPES Comment: Interpretive Data Male: Adults: ?1.5 - 12.4 IUnits/L Female: ?? Follicular: ?3.5 - 12.5 IUnits/L Ovulation: ? 4.7 - 21.5 IUnits/L Luteal: ?1.7 - 7.7 IUnits/L Postmenopausal: 25.8 - 134.8 IUnits/L Current interpretive data was last revised 2015. Blood 07/16/2021 3:36 PM CDT 07/16/2021 4:28 PM CDT us Mariella Russ HIMS CLERK LAB BLOOD ORDERABLES Final Result [facility] Department [place] [address] documented in this encounter Visit Diagnoses Diagnosis Spotting Other specified noninflammatory disorder of vagina documented in this encounter Care Teams Business Functional Analyst Relationship Specialty Start Date End Date Angel Velez MD [address] [place] [address] PCP - General 02/14/21 04/29/22 Bill Stoner MD [address] [facility] [address] [place] [address] 02/14/21 documented as of this encounter
--- OUTSIDE RECORDS SUMMARY | 2024-11-12 11:35 | XMS_ITS | Encounter Summary ---
Author Organization [facility] Healthcare Address [address] [place] [address] Care Team Providers Care Statement Clerks Manager Name Role Phone Angel Velez MD Primary Care Provider [phone] Bill Stoner MD Unavailable [phone] Encounter Details Date Type Department Care Team (Late st Contact Info) Description 08/29/2021 Orders Only [facility] PATHOLOGY [address] [facility] 3rd [place] [address] Nicci Cardenas MD [address] [facility] [phone] [place], [place] [phone] PMB (postmenopausal bleeding) Social History Tobacco Use [...] on file 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 Gender Identity Not on file Sexual Orientation Not on file documented as of this encounter Plan of Treatment Not on file documented as of this encounter Procedures Procedure Name Priority Date/Time Associated Diagnosis Comments SURGICAL PATHOLOGY Routine 08/29/2021 9: 52 AM CDT PMB (postmenopausal bleeding) documented in this encounter Results * Surgical pathology (08/29/2021 9:52 AM CDT) Tissue (Endometrial biopsy) 08/29/2021 9:52 AM CDT 08/29/2021 1:26 PM CDT Narrative PATHOLOGY [facility] - 08/30/2021 2:28 PM CDT EPIC results best viewed via link to PDF [facility] Laboratory [place] [address] Note to Patients: This report may contain [...] Gender: ??F : ??1965 (Age: 56) Address: ??[address] [place] [address] ??[address] Hospital #: ??[id number] Taken:08/29/2021 Received:08/29/2021 Reported: 08/30/2021 Patient Type: [facility] Ref Lab ?? Service: Laboratory Location: [facility] Physician(s): ??Nicci Cardenas M.D. Diagnosis: Uterus, endometrium, biopsy ? - Inactive pattern endometrium - Fragments of unremarkable endocervical mucosa ? - No evidence of endometrial hyperplasia or malignancy c/08/30/2021 12:04 By this signature, I attest that [...] Surgical Pathology and Flow Cytometry Departments at [facility] as part of an ongoing advanced quality engineer program and in compliance with federally [...] Surgical Pathology and Flow Cytometry Departments of [facility]. ??It has not been cleared or approved by the U. S. Food and Drug Administration. IMAGES AND SCANNED DOCUMENTS, IF INCLUDED, ONLY VIEWABLE IN PDF VERSION OF REPORT Nicci Cardenas MD LAB PATHOLOGY ORDERABLES Peggy leonor Result PATHOLOGY [facility] 3rd Floor [place], [place] [phone] documented in this encounter Visit Diagnoses Diagnosis PMB (postmenopausal bleeding) Postmenopausal bleeding documented in this encounter Care Teams Statement Clerks Manager Relationship Specialty Start Date End Date Angel Velez MD [address] [place] [address] PCP - General 02/14/21 04/29/22 Bill Stoner MD [address] [facility] [address] [place] [address] 02/14/21 documented as of this encounter
--- OUTSIDE RECORDS SUMMARY | 2024-11-12 11:35 | XMS_ITS | Encounter Summary ---
Author Organization [facility] Healthcare Address [address] [place] [address] Care Team Providers Care Commercial Green Retrofit Architect Name Role Phone Angel Velez MD Primary Care Provider [phone] Bill Stoner MD Unavailable [phone] Encounter Details Date Type Department Care Team (Late st Contact Info) Description 08/29/2021 2:[address] 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
--- OUTSIDE RECORDS SUMMARY | 2024-11-12 11:36 | XMS_ITS | Encounter Summary ---
Author Organization [facility] Facility Care Team Providers Care Customer Account Administrator Name Role Phone Unavailable Primary Care Provider Unavailabl e Encounter Details Date Type Department Care Team (Late st Contact Info) Description 08/09/2013 9:00 AM CDT - 08/09/2013 4:00 PM CDT Hospital Encounter [facility] Nicci Alvares MD [address] [facility] [phone] [place] [address] Other specified pre-operative examination; Excessive or frequent menstruation; Esophageal reflux; Encounter for long-term (current) use of other medications Social History Tobacco Use Types Packs/Day Years Used Date Smoking Tobacco: Never Assessed Comments Unknown Sex and Gender Information Value Date Recorded Sex Assigned at Not on file 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 Gender Identity Not on file Sexual Orientation Not on file documented as of this encounter Plan of Treatment Not on file documented as of this encounter Procedures Procedure Name Priority Date/Time Associated Diagnosis Comments BLOOD CELL COUNT Routine 08/09/2013 10:1 5 AM CDT DISCHARGE LABORATORY CUMULATIVE REPORT Routine 08/09/2013 12:00 AM CDT documented in this encounter Results * (ABNORMAL) Blood cell count [CBC] express (08/09/2013 10:15 AM CDT) WBC 6.6 3.8 - 9.8 K/cumm HISTORICAL RESULTS RBC 4.03 3.90 - 5.00 M/cumm HISTORICAL RESULTS Hgb 11.8(L) 12.1 - 15.1 g/dl HISTORICAL RESULTS Hct 35.4(L) 36.1 - 44.3 % HISTORICAL RESULTS MCV 87.8 80.0 - 97.6 fl HISTORICAL RESULTS MCH 29.4 26.7 - 33.7 pg HISTORICAL RESULTS MCHC 33.4 32.7 - 35.5 g/dl HISTORICAL RESULTS Rdw 13.1 11.8 - 14.6 % HISTORICAL RESULTS Platelets 342 140 - 440 K/cumm HISTORICAL RESULTS MPV 8.1 6.8 - 10.4 fl HISTORICAL RESULTS Blood specimen (specimen) 08/09/2013 10:15 AM CDT us Paulette Jacobsen MD PhD LAB BLOOD ORDERABLES Fin al Result HISTORICAL RESULTS * Discharge Laboratory Cumulative Report (08/09/2013 12:00 AM CDT) 08/09/2013 Narrative HISTORICAL RESULTS - 08/09/2013 3:26 PM CDT ?[facility] ?Department of Laboratories ? [facility] ? [place] [address] Patient Name: ??FAYE NEVES [facility] Rec Number: [id number] Fin Number: ?[id number] Date: ?1965 Sex/Age: ? Female 48 years Admit Date: ?08/09/2013 Discharge Date: 08/09/2013 Doctor: ?Nicci Cardenas Facility: ?[facility] Location: ?[facility] Chart Printed: 08/09/2013 15:26 ?? * Abnormal ?? C Critical ?? f Footnote ?? ^ Corrected ?? L Low ?? H High ? i Interp Data ?? @ Reference Lab ? Chart Type:Periodic ? COMPLETE BLOOD COUNT ?Test: WBC ?RBC ?Hgb ? Reference: [3.8-9.8] ??[3.90-5.00] ??[12.1-15.1] ? Units: K/cumm ? M/cumm ? g/dL 08/09/2013 ?? 10:15:00 ?? 6.6 ?4.03 ? 11.8 ??L ?Test: Hct ?Platelet Ct ??MCV ? Reference: [36.1-44.3] ??[140-440] ?[80.0-97.6] ? Units: % ?K/cumm ? fL 08/09/2013 ?? 10:15:00 ?? 35.4 ??L ?342 ?87.8 ?Test: MCH ?MCHC ? RDW ? Reference: [26.7-33.7] ??[32.7-35.5] ??[11.8-14.6] ? Units: pg ? g/dL ? % 08/09/2013 ?? 10:15:00 ?? 29.4 ? 33.4 ? 13.1 ?Test: MPV ? Reference: [6.8-10.4] ? Units: fL 08/09/2013 ?? 10:15:00 ?? 8.1 us Historical Provider LAB BLOOD ORDERABLES Peggy galvez Result HISTORICAL RESULTS documented in this encounter Visit Diagnoses Diagnosis Other specified pre-operative examination Excessive or frequent menstruation Esophageal reflux Encounter for long-term (current) use of other medications documented in this encounter
--- OUTSIDE RECORDS SUMMARY | 2024-11-12 11:36 | XMS_ITS | Encounter Summary ---
Author Organization [facility] Facility Care Team Providers Care Fuel Cell Engineer Name Role Phone Unavailable Primary Care Provider Unavailabl e Encounter Details Date Type Department Care Team (Latest Contact Info) Description 08/16/2013 5:43 AM CDT - 08/16/2013 4:00 PM CDT Hospital Encounter [facility] Nicci Cardenas MD [address] [facility] [address] [phone] [place] [address] Polyp of corpus uteri; Unspecified disorder of menstruation and other abnormal bleeding from female genital tract; Excessive or frequent menstruation; Esophageal reflux; Migraine; Encounter for long-term (current) use of other medications Social History Tobacco Use Types Packs/Day Years Used Date Smoking Tobacco: Never Assessed Comments Unknown Sex and Gender Information Value Date Recorded Sex Assigned at Not on file 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 Surgeon: Nicci Cardenas M.D. Dictating: Chidi Saba Jr., M.D. Service Dt: 08/16/2013 OPERATIVE REPORT SURGEON: Nicci Cardenas M.D. FIRST CIGAR HEAD PEGGER: Chidi Saba M.D. ANESTHESIA: Monitored anesthesia care with laryngeal mask anesthesia. PREOPERATIVE DIAGNOSIS (ES): Abnormal uterine bleeding. POSTOPERATIVE DIAGNOSIS (ES): Abnormal uterine bleeding. NAME OF OPERATION: 1. Examination under anesthesia. 2. Diagnostic hysteroscopy. 3. Novasure endometrial ablation. 4. Dilatation and curettage. INDICATIONS FOR PROCEDURE: This is a 48-year-old female with abnormal uterine bleeding with a history of heavy menses with prolonged menses lasting seven to 14 days with excessive menorrhagia and significant myalgias, who presents for a NovaSure ablation. OPERATIVE FINDINGS: The uterus was in the midline position on hysteroscopy. The cavity was found to be mostly atrophic with some mild proliferative endometrium on the posterior wall of the uterus around just superior to the internal os. DESCRIPTION OF PROCEDURE: After obtaining the appropriate operative consents, the patient was taken to the operating room, where anesthesia was obtained without difficulty and found to be adequate. The patient was placed in the dorsal lithotomy position in [facility], and an examination under anesthesia was performed. She was found to have an approximately 10 weeks' sized uterus and normal adnexa. The patient was then prepared and draped in the normal sterile fashion. A bivalved speculum was then placed in the patient's vagina, and the anterior lip of the cervix was grasped with a single-tooth tenaculum. The uterus was sounded to 11 cm, and the cervix was dilated to a size of 16 [place] with a Hanks dilator and measured to be 3.5 cm long. After the hysteroscopy was performed, curettage was performed with removal of endometrial curettings. Then, the NovaSure device was placed inside the uterus. Successful cavity assessment was performed, and the uterine cavity width was determined to be 4 cm. The device was then initiated, and the therapy delivered over 60 seconds. The device was then removed intact. The single tooth tenaculum was removed and good hemostasis was achieved with the use of pressure and two silver nitrate applications. The sterile speculum was removed. The patient tolerated the procedure well and the patient was taken to the recovery room in stable condition. SPECIMENS REMOVED: Endometrial curettings. ESTIMATED BLOOD LOSS: 10 mL. INTRAOPERATIVE FLUIDS: 600 mL. SPONGE/INSTRUMENT/NEEDLE COUNTS: Correct. COMPLICATIONS: None. PRESENCE STATEMENT: The Attending, Dr. Nicci Cardenas, was present for the entire procedure. Chidi Saba Jr., M.D. Electronically Signed By Nicci Cardenas M.D. 08/22/2013 02:50 A Jarett Melgar/brian #[id number] Editing MT: TD: 08/16/2013 11:53:00 cc: Jarett Melgar Jr., M.D. documented in this encounter Plan of Treatment Not on file documented as of this encounter Procedures Procedure Name Priority Date/Time Associated Diagnosis Comments SURGICAL PATHOLOGY 08/16/2013 documented in this encounter Results * Surgical pathology (08/16/2013) Narrative 08/16/2013 Ordered by an unspecified provider. Historical Provider LAB PATHOLOGY ORDERABLES Final Result documented in this encounter Visit Diagnoses Diagnosis Polyp of corpus uteri Unspecified disorder of menstruation and other abnormal bleeding from female genital tract Excessive or frequent menstruation Esophageal reflux Migraine Migraine, unspecified, without mention of intractable migraine without mention of status migrainosus Encounter for long-term (current) use of other medications documented in this encounter
--- OUTSIDE RECORDS SUMMARY | 2024-11-12 11:36 | XMS_ITS | Encounter Summary ---
Author Organization [facility] Facility Care Team Providers Care Acquisition Advisor Name Role Phone Unavailable Primary Care Provider Unavailabl e Encounter Details Date Type Department Care Team (Latest Contact Info) Description 05/14/2015 7:04 AM CDT - 05/14/2015 10:03 AM CDT Hospital Encounter [facility] Shital Benites MD PhD [address] [facility] [address] [place] [address] Special screening for malignant neoplasms, colon; Benign neoplasm of colon Social History Tobacco Use Types Packs/Day Years Used Date Smoking Tobacco: Never Comments Unknown Sex and Gender Information Value Date Recorded Sex Assigned at Not on file 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 [facility] Provider LAB PATHOLOGY ORDERABLES Final Result * COLONOSCOPY REPORT (05/14/2015) Anatomical Region Laterality Modality Other Narrative 05/14/2015 Ordered by an unspecified provider. us Historical Provider GI PROCEDURE ORDERABLES F inal Result documented in this encounter Visit Diagnoses Diagnosis Special screening for malignant neoplasms, colon Benign neoplasm of colon documented in this encounter
--- OUTSIDE RECORDS SUMMARY | 2024-11-12 11:36 | XMS_ITS | Encounter Summary ---
Author Organization [facility] Healthcare Address [address] [place] [address] Care Team Providers Care Town Administrator Name Role Phone Bill Stoner MD Primary Care Provider [phone] Encounter Details Date Type Department Care Team (Latest Contact Info) Description 07/10/2017 4:08 PM CDT - 07/10/2017 11:59 PM CDT Hospital Encounter [facility] [phone] Nicci Cardenas MD [address] [facility] [phone] [place], [place] [id number] Discharge Disposition: Discharge to home or self care Social History Tobacco Use Types Packs/Day Years Used Date Smoking Tobacco: Never Comments Unknown Sex and Gender Information Value Date Recorded Sex Assigned at Not on file 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 Gender Identity Not on file Sexual Orientation Not on file documented as of this encounter Discharge Disposition Disposition Code Departure Means Destination Discharge to home or self care documented in this encounter Plan of Treatment Not on file documented as of this encounter Procedures Procedure Name Priority Date/Time Associated Diagnosis Comments CYTOLOGY Routine 07/10/2017 4:08 PM CDT CYTOLOGY 07/10/2017 12:00 AM CDT documented in this encounter Results * Cytology (07/10/2017 4:08 PM CDT) 07/10/2017 4:08 PM CDT 07/10/2017 5:35 PM CDT Narrative 07/16/2017 9:26 AM CDT [facility] Yady Mcallister [facility] [place] [address] CYTOPATHOLOGY REPORT FINAL Patient Name: FAYE NEVES Address: [address] [place] [address] Service: ADMIRALTY LAWYER ??[place], [place] ??[id number] Location: [facility] Taken: 07/10/2017 Gender: F Received: 07/10/2017 : 1965 (Age: 52) Hospital #: [id number] Accessioned: 07/13/2017 ?? Patient Type: BJ Ref Lab Reported: 07/16/2017 ? Physician(s): Nicci Cardenas M.D. ?? FINAL INTERPRETATION SOURCE OF SPECIMEN: ? Liquid based pap test, Thinprep STATEMENT OF ADEQUACY: ?- Satisfactory for evaluation ?- Endocervical cells/transformation zone sample present GENERAL CATEGORY: ?- Negative for squamous intraepithelial lesion or malignancy ?? Comments HPV Result: ??NEGATIVE for high risk types of Human Papilloma Virus (HPV) RNA This probe detects the presence of HPV types: 16, 18, 31, 33, 35, 39, 45, 51, 52, 56, 58, 59, 66 and 68. ??This HPV test was performed at [facility] in [place], [place] utilizing the Gen-Probe Aptima assay. jenn/07/16/2017 09:26 ?SARA Corona(ASCP) ??Report Electronically Reviewed and Signed Out By SARA Corona(ASCP) 07/16/2017 09:26:56 ?? Gross Description A. ??Liquid based pap test, Thinprep: ??Cervical/vaginal - Screening ThinPrep with HPV ?? Clinical Diagnosis and History Last Menstrual Period: Not Provided. ICD-9 code V72.31 per requisition. This Cytology report is available electronically in Clinical Desktop. The performance characteristics of some immunohistochemical stains, in-situ hybridization and fluorescence in-situ hybridization tests and immunophenotyping by flow cytometry cited in this report (if any) were determined by the Surgical Pathology Department at [facility] as part of an ongoing lead quality technician program and in compliance with federally mandated [...] performance characteristics determined by the Surgical Pathology Department of [facility]. ??It has not been cleared or approved by the U. S. Food and Drug Administration. Nicci Cardenas MD LAB CYTOLOGY ORDERABLES Final Result * CYTOLOGY (07/10/2017 12:00 AM CDT) Narrative 07/10/2017 12:00 AM CDT Ordered by an unspecified provider. Historical Provider LAB CYTOLOGY ORDERABLES F inal Result documented in this encounter Visit Diagnoses Not on filedocumented in this encounter Care Teams Town Administrator Relationship Specialty Start Date End Date Bill Stoner MD [address] [address] PCP - General 01/27/17 02/13/21 documented as of this encounter
--- OUTSIDE RECORDS SUMMARY | 2024-11-12 11:36 | XMS_ITS | Encounter Summary ---
Author Organization [facility] Facility Care Team Providers Care Communications Superintendent Name Role Phone Unavailable Primary Care Provider Unavailabl e Encounter Details Date Type Department Care Team (Latest Contact Info) Description 08/03/2013 - 08/03/2013 11:59 PM CDT Hospital Encounter [facility] Guzman MD [address] [facility] [address] [phone] [place] [address] Intramural leiomyoma of uterus; Other noninflammatory disorders of ovary, fallopian tube, and broad ligament Social History Tobacco Use Types Packs/Day Years Used Date Smoking Tobacco: Never Assessed Comments Unknown Sex and Gender Information Value Date Recorded Sex Assigned at Not on file 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
--- OUTSIDE RECORDS SUMMARY | 2024-11-12 11:36 | XMS_ITS | Encounter Summary ---
Author Organization [facility] Facility Care Team Providers Care Dynamite Packing Machine Operator Name Role Phone Unavailable Primary Care Provider Unavailabl e Encounter Details Date Type Department Care Team (Late st Contact Info) Description 09/02/2013 - 09/02/2013 11:59 PM CDT Hospital Encounter [facility] Bill Palmer MD [address] [address] Chronic sinusitis Social History Tobacco Use Types Packs/Day Years Used Date Smoking Tobacco: Never Assessed Comments Unknown Sex and Gender Information Value Date Recorded Sex Assigned at Not on file 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 KOBY RDZ M.D. FINAL REPORT The radiology attending physician has personally reviewed this study, and has reviewed and/or edited this written report and agrees with it. ACC# ??Date Time ??Exam [id number] Sep 02, 2013 15:48:[id number] Maxillofacial w/o cont EXAMINATION: ?? Noncontrast computed tomography of the paranasal sinuses. HISTORY: Sinusitis TECHNIQUE: Noncontrast CT of the paranasal sinuses was performed in the coronal plane. Comparison: None available. FINDINGS: ??Review of the topogram demonstrates no abnormalities. The frontal sinuses are normal. The ethmoid sinuses are normal. Minimal mucosal thickening in the right maxillary sinus. The maxillary sinuses are otherwise normal. The sphenoid sinus is normal. The osteomeatal units are open bilaterally. The nasal septum is at midline. No areas of bony erosion are identified. The orbits are normal. Limited view of the frontal lobes is normal. IMPRESSION: ?? Minimal mucosal thickening in the right maxillary sinus. Otherwise, the paranasal sinuses are clear without anatomic abnormalities. Requested By: Bill Stoner ??M.D. Dictated By: ?? KOBY RDZ M.D. ??on Sep ??2012 ??4:03P This document has been electronically signed by: CEE SILVEIRA M.D. on Sep ??1 2012 ??4:18P Procedure Note Provider, MD Travon - 03/08/2017 Jarett GREENE M.D. FINAL REPORT The radiology attending physician has personally reviewed this study, and has reviewed and/or edited this written report and agrees with it. ACC# Date Time Exam [id number] Sep 02, 2013 15:48:[id number] Maxillofacial w/o cont EXAMINATION: Noncontrast computed tomography of the paranasal sinuses. HISTORY: Sinusitis TECHNIQUE: Noncontrast CT of the paranasal sinuses was performed in the coronal plane. Comparison: None available. FINDINGS: Review of the topogram demonstrates no abnormalities. The frontal sinuses are normal. The ethmoid sinuses are normal. Minimal mucosal thickening in the right maxillary sinus. The maxillary sinuses are otherwise normal. The sphenoid sinus is normal. The osteomeatal units are open bilaterally. The nasal septum is at midline. No areas of bony erosion are identified. The orbits are normal. Limited view of the frontal lobes is normal. IMPRESSION: Minimal mucosal thickening in the right maxillary sinus. Otherwise, the paranasal sinuses are clear without anatomic abnormalities. Requested By: Bill Stoner M.D. Dictated By: KOBY RDZ M.D. on Sep 02 2013 4:03P This document has been electronically signed by: CEE SILVEIRA M.D. on Sep 02 2013 4:18P us Historical Provider MD RODRIGUEZ CT PROCEDURES Final R esult documented in this encounter Visit Diagnoses Diagnosis Chronic sinusitis Unspecified sinusitis (chronic) documented in this encounter
--- OUTSIDE RECORDS SUMMARY | 2024-11-12 11:36 | XMS_ITS | Encounter Summary ---
Author Organization [facility] Facility Care Team Providers Care Diesel Power Shovel Operator Name Role Phone Unavailable Primary Care Provider Unavailabl e Encounter Details Date Type Department Care Team (Latest Contact Info) Description 07/08/2013 - 07/08/2013 11:59 PM CDT Hospital [facility] [address] [facility] [address] [phone] [place] [address] Screening for malignant neoplasm of cervix; Satisfactory cervical smear but lacking transformation zone Social History Tobacco Use Types Packs/Day Years Used Date Smoking Tobacco: Never Assessed Comments Unknown Sex and Gender Information Value Date Recorded Sex Assigned at Not on file 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 us Historical Provider LAB CYTOLOGY ORDERABLES F inal Result documented in this encounter Visit Diagnoses Diagnosis Screening for malignant neoplasm of cervix Screening for malignant neoplasm of the cervix Satisfactory cervical smear but lacking transformation zone documented in this encounter
--- OUTSIDE RECORDS SUMMARY | 2024-11-12 11:36 | XMS_ITS | Encounter Summary ---
Author Organization [facility] Healthcare Address [address] [place] [address] Care Team Providers Care Cnc Milling Machine Operator Name Role Phone Bill Stoner MD Primary Care Provider [phone] Encounter Details Date Type Department Care Team (Latest Contact Info) Description 07/10/2017 3:26 PM CDT - 07/10/2017 11:59 PM CDT Hospital Encounter [facility] No, Physician Discharge Disposition: Discharge to home or self care Social History Tobacco Use Types Packs/Day Years Used Date Smoking Tobacco: Never Comments Unknown Sex and Gender Information Value Date Recorded Sex Assigned at Not on file 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 Gender Identity Not on file Sexual Orientation Not on file documented as of this encounter Discharge Disposition Disposition Code Departure Means Destination Discharge to home or self care documented in this encounter Plan of Treatment Not on file documented as of this encounter Procedures Procedure Name Priority Date/Time Associated Diagnosis Comments HPV ONLY Routine 07/10/2017 8:27 AM CDT DISCHARGE LABORATORY CUMULATIVE REPORT 07/10/2017 12:00 AM CDT documented in this encounter Results * HPV ONLY (07/10/2017 8:27 AM CDT) Pathologist [facility] High Risk HPV RNA Detection Negative Negative [facility] Comment: Interpretive Data Tested for types 16, 18, 31, 33, 35, 39, 45, 51, 52, 56, 58, 59, 66, and 68. Test performed utilizing Gen-Probe Aptima assay. Current interpretive data was last reviewed 2016 Thin prep 07/10/2017 8:2 7 AM CDT 07/14/2017 8:27 AM CDT Narrative JEFF KERR - 07/14/2017 2:29 PM CDT [id number] us Notinfile Unknown LAB BLOOD ORDERABLES Final Res ult JEFF [id number] [address] Garcia Department [place] [address] * DISCHARGE LABORATORY CUMULATIVE REPORT (07/10/2017 12:00 AM CDT) Narrative 07/10/2017 12:00 AM CDT Ordered by an unspecified provider. Historical Provider LAB BLOOD ORDERABLES Peggy l Result documented in this encounter Visit Diagnoses Not on filedocumented in this encounter Care Teams Cnc Milling Machine Operator Relationship Specialty Start Date End Date Bill Stoner MD [address] [facility] [address] [place] [address] PCP - General 01/27/17 02/13/21 documented as of this encounter
== END 2024-11-05 09:47 | disposition home or self-care (01) ==
PROVIDERS: Emergency Provider Emergency Medicine; PCP Family Medicine
DX: F10.10 Alcohol abuse, uncomplicated (principal); S00.83XA Contusion of other part of head, initial encounter; S62.622A Displaced fracture of middle phalanx of right middle finger, initial encounter for closed fracture; I10 Essential (primary) hypertension; F41.9 Anxiety disorder, unspecified; F32.A Depression, unspecified; W19.XXXA Unspecified fall, initial encounter
CPT/HCPCS: 29130; 70450; 70486; 72125; 73130; 96372; 99284; A9270; J1885

== ENCOUNTER 2025-10-27 09:04 | Outpatient (CLI) | payer BC, SELFPAY ==
--- NOTE | ~2025-10-27 | MM_ITS ---
EXAMINATION: MM screening [facility] BI w sulma HISTORY: Screening TECHNIQUE: Craniocaudal and mediolateral oblique 3-D tomosynthesis images were obtained and synthetic 2-D images were generated. CAD analysis was submitted and interpreted. COMPARISON: Comparison to multiple prior studies sequentially, with oldest reviewed study dated 09/12/2020. BREAST PARENCHYMAL COMPOSITION: Not dense: There are scattered areas of fibroglandular density. FINDINGS: There is no evidence of suspicious mass, calcification, or architectural distortion to suggest malignancy in either breast. There has been no suspicious interval change. IMPRESSION: 1. No mammographic evidence of malignancy. 2. Recommend routine screening mammography in one year. BI-RADS Category 1: Negative Reviewed, dictated and finalized at location O. 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
--- OUTSIDE RECORDS SUMMARY | 2025-10-27 09:09 | XMS_ITS | Continuity of Care Document ---
Author Organization [facility] , [facility] Address [address] [place] [address] Assessment No assessment recorded. Plan of Treatment Reminders Order Date Submit Date Provider Last Modified By Organization Details Last Modified Time Details Appointments None recorded . Lab None recorded . Referral None recorded . Procedures None recorded . Surgeries None recorded . Imaging None recorded . Medication Orders Paxil 20 mg tablet 025 10/06/20 25 [id number], [address] [place], [place], [id number], 5 10:47:59 Patient TargetsNo targets recorded. Patient InstructionsNo instructions recorded. Reason for Referral None Reported. Procedures Surgical History Date Name Laterality Status Provider Name and Address Organization Details Recorded Time 5 Date of Last Colonoscopy completed Payton Figueroa [facility] 08/25/2025 10:14:46 5 Date of Last Pap Smear completed Veronique Holley [facility] 10/06/2025 10:16:06 4 Most Recent Mammogram completed [facility] 04/07/2025 11:01:16 C Section completed [facility] 04/07/2025 10:53:31 Imaging Results None recorded. Procedure Notes None recorded. Medical Equipment None Reported. Allergies Allergen ID Allergen Name Allergen Category Reaction Reaction Severity Criticality Documentation Date Start Date Code Code System Note Provider Name and Address Organization Details Recorded Time 855766 cow milk allergeni c extract food,medi cation Not available Not available Not available 04/07/2025 03184 5 RxNorm Cassidy hyatt, [facility] 5 10:53:05 156756 mold extract environme nt Not available Not available Not available 04/07/2025 57732 8 [facility]Norm [facility] 5 10:53:05 482600 cigarette smoke environme nt Not available Not available Not available 04/07/2025 Cassidy hyatt, [facility] 5 10:53:05 231415 lisinopri l medicatio n Not available Not available Not available 08/25/2025 13600 RxNorm Not Available alison - External Data Service - prod 04:15:20 Medications Name Sig Start Date Stop Date Status Note LastModified by Organization Details LastModified Time paroxetine 10 mg tablet TAKE 1 TABLET BY MOUTH EVERY DAY 08/25 completed Not Available Not Available Not Available Paxil 20 mg tablet Take 1 tablet every day by oral route. 2024 active Not Available Not Available Not Avai lable phentermine 15 mg capsule TAKE 1 CAPSULE BY MOUTH DAILY 07/11 completed Not Available Not Available Not Available valsartan 80 mg tablet TAKE 1 TABLET BY MOUTH EVERY DAY 08/25 completed Not Available Not Available Not Available estradiol 0.01% (0.1 mg/gram) vaginal cream Insert 1 g twice a week by vaginal route at bedtime. 07/11 completed Not Available Not Available Not Available valsartan 160 mg tablet TAKE 1 TABLET BY MOUTH EVERY DAY active Not Available Not Available No t Available estradiol 10 mcg vaginal tablet INSERT 1 TABLET VAGINALLY THREE TIMES WEEKLY active Not Available Not Available No t Available Vitals Date Recorded Body height Body mass index (BMI) Body weight Systolic And Diastolic Provider Name and Address Organization Details Last Updated DateTime 10/06/2025 154.94 cm 38.7 kg/m2 10075.72 g 128/76 mm[Hg] Veronique Holley [facility] 10/06/2025 10:19:30 Social History Question Answer Notes LastModified by Organizat ion Details LastModified Time Tobacco Smoking Status Never Smoker Cassidy hyatt, [facility] 04/07/2025 10:53:26 If You Are , What Was Your Level Of Alcohol Consumption Prior To ? None Information not available 04/07/2025 Are You Blind Or Do You Have Difficulty Seeing? No Information not available 04/07/2025 Are You Deaf Or Do You Have Serious Difficulty Hearing? No Information not available 04/07/2025 What Type Of Diet Are You Following? REGULAR Information not available 04/07/2025 How Many Children Do You Have? 2 Information not available 04/07/2025 Are There Any Occupational Health Risks Where You Work? No Information not available 04/07/2025 What Is Your Relationship Status? Information not available 04/07/2025 Are You Sexually Active? No Information not available 04/07/2025 Sex: Unknown Functional Status Question Answer Note LastModified by Organizat ion Details LastModified Time Do you use any illicit or recreational drugs? No Information not available 04/07/2025 What is your level of alcohol consumption? Moderate Information not available 04/07/2025 Are you currently employed? Yes Information not available 04/07/2025 What is your exercise level? Occasional Information not available 04/07/2025 Mental Status None recorded. Family History Relationship Description Onset Age of this Age Resolved Age Notes LastModified by Organization Details LastModified Time Brother Hypertensive disorder Not available 04/07 10:53:10 Sister Hypertensive disorder Not available 04/07 10:53:10 Medical History Condition Response High Blood Pressure Y Gynecological History Statement/Question Response Date of Last Colonoscopy 08/04/2025 Date of last HPV 04/07/2025 Date of LMP 04/02/2020 Date of Last Pap Smear 04/07/2025 Most Recent Mammogram 10/24/2024 Current Control Method Tubal Ligat ion Age at Menarche 12 Obstetrics History GPAL:G 2 P 2 0 0 2 Type Value Full Term 2 Living 2 Total 2 Past Encounters Encounter ID Performer Location Encounter Start Date Encounter Closed Date Diagnosis/Indication Diagnosis SNOMED-CT Code Diagnosis ICD10 Code Diagnosis IMO Codes Diagnosis Note [id number] KRISTY MIX [facility] h [address] [place] [address] 10/06/2025 10:04:26 10/09/2025 10:04:19 Menopausal syndrome 586198012 N95.1 [id number] Doing well with Paxil, refills sent. Follow up in 3 months. Health Concerns Section Related Observation LastModified by Organization Detai ls LastModified Time None Recorded Concern Status LastModified by Organization Details LastModified Time None Recorded Payers Encounter Date Sequence Insurance Name Policy Number Policy Brice Covered Member ID Brice Member ID Guarantor Name 10/06/2025 [address] [facility] ([facility]) [id number] Mojgan Pura [id number] Mojgan Pura Notes Date Note Type Note Provider Name and Address Organization Details Recorded Time 10/06/2025 text/html ROS as noted in the HPI Mojgan is a 60 y/o female who presents today for medication follow up. She currently is taking Paxil 20 mg daily. She is doing well with medication and would like to continue. KRISTY MIX [address] [facility], [place], [address], [facility] 10/07/2025 12:08:44 OBGyn Episode No OBEpisode recorded.
--- OUTSIDE RECORDS SUMMARY | 2025-10-27 09:09 | XMS_ITS | Clinical Summary ---
Author Organization [facility] Address [address] [facility] [place] [address] Care Team Providers Care Cash Teller Name Role Phone Bill Stoner MD Primary Care Provider [phone] Source Comments [facility],non-owned Affiliates and Associated Physician Practices is amultiple site organization consisting of ambulatory clinics and hospital sitesin [place], [place], [place] and [place]. This disclosure is being madepursuant to the Care Everywhere program and may not contain all information available regarding this patient. Last updated 18.[facility] Allergies No known active allergies Medications * Be aware that medications may not be up to date on this document. Alwaysverify current medications with the patient. LISINOPRIL PO Active Fluticasone Propionate (FLONASE NA) Active benzonatate (TESSALON) 200 MG capsule Take 1 capsule by mouth 3 times daily as needed for Cough 30 capsule 08/04/2019 Active Family History Medical History Relation Name Comments Other - Hepatic/Liver Father Dementia Mother Relation Name Status Comments Father Mother Social History Tobacco Use Types Packs/Day Years Used Date Smoking Tobacco: Never Smokeless Tobacco: Never Comments No Sex and Gender Information Value Date Recorded Sex Assigned at Not on file Legal Sex Female 7:44 PM [employer] Gender Identity Not on file Sexual Orientation Not on file Last Filed Vital Signs Vital Sign Reading Time Taken Comments Blood Pressure 124/80 08/04/2019 11:15 AM CDT Pulse 94 08/04/2019 11:15 AM CDT Temperature 36.8 C (98.3 F) 08/04/2019 11:15 AM CDT Respiratory Rate 20 08/04/2019 11:15 AM CDT Oxygen Saturation 98% 08/04/2019 11:15 AM CDT Inhaled Oxygen Concentration - - Weight 93 kg (205 lb) 08/04/2019 11:15 AM CDT Height 157.5 cm (5' 2) 08/04/2019 11:15 AM CDT Body Mass Index [...] SCREENING 1965 LIPID TESTING 1965 MAMMOGRAM 1965 HIV SCREENING 01/04/1980 HEPATITIS C SCREENING 12/30/1982 DTAP/TDAP/TD VACCINES (1 - Tdap) 01/04/1984 PNEUMOCOCCAL VACCINE 50+ (1 of 1 - PCV) 2015 ZOSTER VACCINE (1 of 2) 2015 SCREENING FOR DIABETES 08/04/2019 DEPRESSION SCREENING 11/02/2024 COVID-19 VACCINE (1 - 2024-2 6 season) 2025 INFLUENZA VACCINE (#1) 2025 Respiratory Syncytial Virus (RSV) Vaccine Pt: or over 60 yrs (1 - 1-dose 75+ series) 01/04/2040 HEPATITIS B VACCINE Aged Out No longe r eligible based on patient's age to complete this topic HIB VACCINE Aged Out No longer eligi ble based on patient's age to complete this topic HPV VACCINE Aged Out No longer eligi ble based on patient's age to complete this topic MENINGOCOCCAL (Group B) VACC INE SHARED DECISION-MAKING Aged Out No longer eligibl e based on patient's age to complete this topic MENINGOCOCCAL GROUPS A/C/Y/W VACCINE Aged Out No longer eligible b ased on patient's age to complete this topic Insurance [facility] Care Teams Cash Teller Relationship Specialty Start Date End Date Bill Stoner MD PCP - General Internal Medicine 03/02/18
--- OUTSIDE RECORDS SUMMARY | 2025-10-27 09:09 | XMS_ITS | Data Portability ---
Author Organization [employer] [facility] Address [address] [place] [address] Assessment No assessment recorded. Plan of Treatment Reminders Order Date Submit Date Provider Last Modified By Organization Details Last Modified Time Details Appointments None recorded. Lab HPV E6+E7 mRNA, qualitative PCR, cervix 2024 025 [facility], [address] [place], [address], 5 10:09:33 pap, LB 2024 025 [facility], [address] [facility], [place], [address], 5 20:50:09 Referral gastroenter ologist referral - Please evaluate pt for screening colonoscopy , last colonoscopy 10 yrs ago. Had colon polyp. 2024 025 Virginia Eduardo MD, [address] [place], [place], [address], 5 14:37:10 Procedures None recorded. Surgeries None recorded. Imaging None recorded. Medication Orders Paxil 20 mg tablet 2024 025 [facility] #[id number], [address] [facility], [place], [place], [id number], 5 10:47:59 Paxil 20 mg tablet 2024 025 [facility]31867, [address] [place], [place], [id number], 10:27:36 Paxil 10 mg tablet 2024 [facility]06903, [address] [place], [place], [phone], 10:27:51 estradiol 0.01% (0.1 mg/gram) vaginal cream 2024 [facility] #[id number], [address] [place], [place], [id number], 10:32:46 Patient TargetsNo targets recorded. Patient Instructions Encounter Date Encounter Id Patient Instructions Last Modified By Organization Details Last Modified Time 04/07/2025 [id number] [facility] Not available 04/07/2025 11:36:48 body mass index: care instructions [facility] Not available 04/07/2025 11:36:48 A healthy lifestyle: care instructions [facility] Not available 04/07/2025 11:36:48 calcium and vitamin D combination [facility] Not available 04/07/2025 11:36:48 eating healthy foods: care instructions [facility] Not available 04/07/2025 11:36:48 exercise program : getting started [facility] Not available 04/07/2025 11:36:48 learning about cervical cancer screening [facility] Not available 04/07/2025 11:36:48 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 Had colon polyp. Referring Physician: Lyndsey Burden HEAD SCREEN WORKER, Encounter Date: 04/07/2025 Results Created Date Observation Date Name Description Value Unit Range Abnormal Flag Note LastModifiedBy Organization Detail LastModifiedTime 04/07/2004/10/2025 HPV HIGH RISK HPV high risk Negati ve negati ve normal The HPV High Risk assay is inten ded for use as co-te sting with cytol ogy and not as a subst itute for regul ar cervi jonathan cytol ogy scree rambo. This assay is not inten ded for use as a scree rambo devic e for women under age 30 with angy l cervi jonathan cytol ogy. Not Available [facility] [address] [place], [address], 04/11/2025 10:09:33 04/07/20 25 04/12/2025 THINP REP TIS PAP clinical information: normal None given Not Available [address] [place], [address], 04/12/2025 20:50:09 04/07/20 25 04/12/2025 THINP REP TIS PAP LMP: normal NONE GIVEN Not Available [address] [address] [place], [address], 04/12/2025 20:50:09 04/07/20 25 04/12/2025 THINP REP TIS PAP prev. Pap: normal NONE GIVEN Not Available [address] [place], [address], 04/12/2025 20:50:09 04/07/20 25 04/12/2025 THINP REP TIS PAP prev. BX: normal NONE GIVEN Not Available [address] [address] [place], [address], 04/12/2025 20:50:09 04/07/20 25 04/12/2025 THINP REP TIS PAP source: normal Cervi x Not Available [address] [address] [place], [address], 04/12/2025 20:50:09 04/07/20 25 04/12/2025 THINP REP TIS PAP statement of adequacy: normal Satis facto ry for evalu ation . Endoc ervic al/tr ansfo rmati on zone compo nent prese nt. Not Available [address] [address] [place], [address], 04/12/2025 20:50:09 04/07/20 25 04/12/2025 THINP REP TIS PAP interpretati on/result: normal Cytol ogy Resul ts: Negat guille for intra epith elial lesio n or malig pushpa . Not Available [address] [address] [place], [address], 04/12/2025 20:50:09 04/07/20 25 04/12/2025 THINP REP TIS PAP comment: normal This Pap test has been evalu ated with compu dockery techn ology . Not Available [address] [address] [place], [address], 04/12/2025 20:50:09 04/07/20 25 04/12/2025 THINP REP TIS PAP cytotechnolo gist: normal MVB, CT( CP) CT Scree rambo Locat ion: [address] [address] [place] [address] Not Available [address], [place], [address], 04/12/2025 20:50:09 04/07/2004/12/2025 THINP REP TIS PAP comment EXPLA NATOR Y NOTE: The Pap is a scree rambo test for cervi jonathan cance r. It is not a diagn ostic test and is subje ct to false negat guille and false posit guille resul ts. It is most relia ble when a satis facto ry sampl e, regul matthew obtai shaq, is submi tted with relev ant clini jonathan findi ngs and histo ry, and when the Pap resul t is evalu ated along with histo jerman and curre nt clini jonathan infor matio n. Not Available [facility] [address] , [place], [address], 04/12/2025 20:50:09 Result Notes None recorded. Procedures Surgical History Date Name Laterality Status Provider Name and Address Organization Details Recorded Time Date of Last Colonoscopy completed Payton Figueroa [facility] 08/25/2025 10:14:46 5 Date of Last Pap Smear completed Veronique Holley [facility] 10/06/2025 10:16:06 4 Most Recent Mammogram completed [facility] 04/07/2025 11:01:16 C Section completed [facility] 04/07/2025 10:53:31 Imaging Results None recorded. Procedure Notes None recorded. Medical Equipment None Reported. Allergies Allergen ID Allergen Name Allergen Category Reaction Reaction Severity Criticality Documentation Date Start Date Code Code System Note Provider Name and Address Organization Details Recorded Time 626273 cow milk allergeni c extract food,medi cation Not available Not available Not available 04/07/2025 08092 5 RxNorm Cassidy Earlyдмитрийe [facility] 5 10:53:05 792988 mold extract environme nt Not available Not available Not available 04/07/2025 39513 8 [facility] 5 10:53:05 095469 cigarette smoke environme nt Not available Not available Not available 04/07/2025 [facility] 5 10:53:05 449157 lisinopri l medicatio n Not available Not available Not available 08/25/2025 39900 RxNorm Not Available alison - External Data Service - prod 5 04:15:20 Medications Name Sig Start Date Stop [...] No t Available Vitals Date Recorded Body weight Body mass index (BMI) Body height Systolic And Diastolic Provider Name and Address Organization Details Last Updated DateTime 04/07/2025 57091.71 g 39.9 kg/m2 154.94 cm 136/88 mm[Hg] Cassidy Rosales [facility] [employer] [facility] 04/07/2025 11:07:33 Date Recorded Body height Body mass index (BMI) Body weight Systolic And Diastolic Provider Name and Address Organization Details Last Updated DateTime 07/11/2025 154.94 cm 40.1 kg/m2 24386.02 g 144/80 mm[Hg] Payton [facility] [employer] [facility] 07/11/2025 10:35:12 Date Recorded Body height Body mass index (BMI) Body weight Systolic And Diastolic Provider Name and Address Organization Details Last Updated DateTime 08/25/2025 154.94 cm 39.7 kg/m2 81069.4 g 120/70 mm[Hg] Payton [facility] [employer] [facility] 08/25/2025 10:15:53 Date Recorded Body height Body mass index (BMI) Body weight Systolic And Diastolic Provider Name and Address Organization Details Last Updated DateTime 10/06/2025 154.94 cm 38.7 kg/m2 49286.72 g 128/76 mm[Hg] Veronique Holley [facility] [employer] [facility] 10/06/2025 10:19:30 Social History Question Answer Notes LastModified by Organizat ion Details LastModified Time Tobacco Smoking Status Never Smoker Cassidy Rosales [facility] [employer] [facility] 04/07/2025 10:53:26 If You Are , [...] ICD10 Code Diagnosis IMO Codes Diagnosis Note [id number] KRISTY MIX [facility] [address] [place] [address] 04/07/2025 10:37:03 04/10/2025 11:52:53 Gynecologic examination 19150570 Z01.419 M enopause at age: 55 Last pap: 3-5 yrs ago NILM per pt, no history of abnormal pap - Pap/HPV cotesting collected today- discussed natural course of HPV infection, ASCCP guidelines .- Recommend Annual breast and pelvic exams- Provided breast self-exam pamphlet- Recommend colon cancer screening- history of colon polyps is due for colonoscop y GI referral placed- Routine labs done with PCP- Mammogram 10/25 WNL- repeat in 1 yr- BMI counseling , diet and exercise reviewed-F amily hx Negative for Breast Cancer, Cervical Cancer, Colon Cancer, Endometria l Cancer and Ovarian Cancer.-RT O for annual or PRN Screening for malignant neoplasm of cervix 021678348 Z12.4 Screening for malignant neoplasm of breast 750829370 Z12.31 Depression screening 171 958398 Z13.31 refer to intake screeningh glynn is an alcoholic- discussed therapy/re ferral for medication options for depression .She declines at this time but will call office if she changes her mind. No SI/HI. States she feels safe at home. Screening colonoscopy 44 6942217 Z12.11 Atrophic vaginitis 03248 000 N95.2 593349 [id number] KRISTY MIX [facility] [address] [place] [address] 07/11/2025 10:23:58 08/03/2025 08:21:47 Atrophic vaginitis 12900316 N95.2 922995 continue estradiol vaginal cream Menopausal syndrome 1237 26177 N95.1 99700805 Paxil 10mg follow up in 6 weeks [id number] KRISTY MIX [facility] [address] [place] [address] 08/25/2025 09:57:23 08/25/2025 10:57:52 Menopausal syndrome 943758718 N95.1 [id number] Would like to continue Paxil. Has noticed improvemen t in hot flashes. Increase paxil to 20mg, follow up in 6 weeks. [id number] KRISTY MIX [facility] [address] [place] [address] 10/06/2025 10:04:26 10/09/2025 10:04:19 Menopausal syndrome 726064616 N95.1 [id number] Doing well with Paxil, refills sent. Follow up in 3 months. Health Concerns Section Related Observation LastModified by Organization Detai ls LastModified Time None Recorded Concern Status LastModified by Organization Details LastModified Time None Recorded Advance Directives Directive None Recorded Payers Insurance Date Sequence Insurance Name Policy Number Policy Brice Covered Member ID Brice Member ID Guarantor Name 10/09/2025 1 [employer] [id number] Mojgan Neves [id number] Mojgan Neves Notes Date Note Type Note Provider Name and Address Organization Details Recorded Time 04/07/2025 text/html Annual GYNReport ed by PatientHistoryFor history, patient reportsno gynecologic complaintsandno change in interval history.Genitourinary symptomsFor urinary symptoms, patient reportsno hematuriaandno incontinence. For vulva, patient reportsno genital lesion. For menstrual cycle, (menopause).Breast symptomsFor breast, patient reportsno breast pain,no breast lump, andno nipple discharge.Contraceptio nFor current contraception, patient reportssatisfied with current contraception.Endocrin e symptomsFor sexual complaints, patient reportsno sexual complaints,no pain during intercourse, andnormal libido. For menopausal symptoms, patient reportsno menopausal symptomsandnormal vaginal lubrication.Psychologi jonathan symptomsFor psychological symptoms, patient reportsno depression,no anxiety, andno pmdd.ROS as noted in the HPI Mojgan is a 60 y/o new patient who presents for annual exam with KRISTY Perez [facility], [place], [address], [facility] 04/07/2025 18:55:12 07/11/2025 text/html ROS as noted in the HPI Mojgan is a 60 y/o female who presents for follow upShe was started on Estradiol creamPt has questions about meds for depression she says at night she is getting very bad rotating hot flashes .She wants to ask about a med her sister is taking for this problem. Milena Cartagena MD [facility], [place], [address], [facility] 08/03/2025 02:29:46 08/25/2025 text/html ROS as noted in the HPI Mojgan is a 60 y/o female who presents today for medication follow up. She was started on Paxil 10mg on 07/11/25. She states has helped with Hot flashes, is only getting up once or twice a night. States depression symptoms are about the same as prior to starting medication. States depression has not gotten worse. KRISTY MIX [address] [facility], [place], [address], [facility] 08/25/2025 10:30:17 10/06/2025 text/html ROS as noted in the HPI Mojgan is a 60 y/o female who presents today for medication follow up. She currently is taking Paxil 20 mg daily. She is doing well with medication and would like to continue. KRISTY MIX [address] [facility], [place], [address], [facility] 10/07/2025 12:08:44 OBGyn Episode No OBEpisode recorded.
--- OUTSIDE RECORDS SUMMARY | 2025-10-27 09:09 | XMS_ITS | Clinical Summary ---
Author Organization [facility] Care Team Providers Care Action Installer Name Role Phone Unavailable Primary Care Provider Unavailabl e Social History Tobacco Use Types Packs/Day Years Used Date Smoking Tobacco: Never Assessed Comments Unknown Sex and Gender Information Value Date Recorded Sex Assigned at Not on file Legal Sex Female 2:33 PM CLINICAL [employer]IST [employer] Gender Identity Not on file Sexual Orientation Not on file Plan of Treatment Health Maintenance Due Date Last Done Comments Hepatitis C Virus (HCV) Screening 1965 TdaP Immunization 1965 Pap Smear 1986 Cervical Cancer Screening (CCS) 1995 HPV/Cotest 1995 Cologuard 2010 Colonoscopy 2010 Colorectal Cancer Screening 2010 Immunochemical Fecal Occult Blood 2010 Pneumococcal Immunization (5 0+ years) (1 of 1 - PCV) 2015 Zoster Immunization (1 of 2) 2015 Influenza Immunization (#1) 2025 SARS-COV-2 Immunization ( - 2023- season) 2025 Respiratory Syncytial Virus (RSV) Immunization (Adult) (1 - 1-dose 75+ series) 01/04/2040 Hepatitis B Immunization Aged Out No longer eligible based on patient's age to complete this topic Human Papillomavirus (HPV) Immunization Aged Out No longer eligible b ased on patient's age to complete this topic Meningococcal Immunization (ACWY) Aged Out No longer eligible based on patient's age to complete this topic Rotavirus Immunization Aged Out No lo nger eligible based on patient's age to complete this topic
--- OUTSIDE RECORDS SUMMARY | 2025-10-27 09:09 | XMS_ITS | Clinical Summary ---
Author Organization [facility] Address [address] [place] [address] Care Team Providers Care Medical [employer] Officer Name Role Phone Bill Stoner MD Unavailable Davin Mcgrath MD Primary Care [...] 12/25/2023 Assessment & Plan (12/25/2023 4:31 PM [employer]): - prednisone, robitussin - f/u prn Elevated [...] mo Assessment & Plan (12/25/2023 4:31 PM [employer]): - rec healthy diet and regular exercise Assessment & Plan (05/12/2023 8:54 AM CDT): - rec healthy diet and regular exercise Body mass index 40.0-44.9, adult (CMS/HCC) 05/12 Annual physical exam 11/05/2022 Assessment & Plan (12/25/2023 4:31 PM [employer]): - Reviewed with the patient BMI, blood pressure, diet, exercise, and encouraged healthy lifestyle choices. - Screened for high risk behaviors, diet and exercise habits, and symptoms of depression. - check screening labs - encouraged regular exercise and weight loss Assessment & Plan (11/05/2022 4:46 PM [employer]): - Reviewed with the patient BMI, blood pressure, diet, exercise, and encouraged healthy lifestyle choices. - Screened for high risk behaviors, diet and exercise habits, and symptoms of depression. - check screening labs - encouraged regular exercise and weight loss Snoring 11/05/2022 Assessment & Plan (11/05/2022 4:46 PM [employer]): - uncontrolled, possible ENOCH - rec weight loss - will ref to sleep med - pt to call back when ready to f/u with referral Gastroesophageal reflux disease without esophagi tis 04/30/2022 Assessment & Plan (11/05/2022 4:45 PM [employer]): - stable - continue current medication Assessment & Plan (04/30/2022 4:45 PM CDT): - stable - continue current medication Hypertension, essential 04/30/2022 Assessment & Plan (06/24/2024 4:10 PM CDT): - stable - continue lisinopril Assessment & Plan (12/25/2023 4:30 PM [employer]): - stable - continue current medication Assessment & Plan (06/24/2023 8:33 AM CDT): - stable - continue current medication Assessment & Plan (05/12/2023 8:53 AM CDT): - uncontrolled - restart amlodipine 10mg daily - f/u in 1 mo for recheck of BP, likely will need to restart lisinopril but pt is resistant to that today. Assessment & Plan (11/05/2022 4:45 PM [employer]): - stable - continue current medication Assessment & Plan (04/30/2022 4:45 PM CDT): - stable - continue current medication Allergic rhinitis due to allergen 04/30/2022 Assessment & Plan (06/24/2024 4:10 PM CDT): - poor control - continue flonase, jr - pt to consider allergy referal Assessment & Plan (12/25/2023 4:31 PM [employer]): - stable - continue current medication Assessment & Plan (11/05/2022 4:46 PM [employer]): - stable - continue current medication Assessment & Plan (04/30/2022 4:45 PM CDT): - continue flonase - add zyrtec due to ear effusions and eustachian tube dysfunction - f/u prn ARJUN (generalized anxiety disorder) 04/30/2022 Assessment & Plan (12/25/2023 4:30 PM [employer]): - stable of meds; f/u prn Assessment & Plan (05/12/2023 8:53 AM CDT): -stable off meds Assessment & Plan (11/05/2022 4:46 PM [employer]): - stable - continue current medication Assessment & Plan (04/30/2022 4:45 PM CDT): - stable - continue current medication Moderate episode of recurrent major depressive d isorder 04/30/2022 Assessment & Plan (12/25/2023 4:31 PM [employer]): - stable off meds; not interested in meds/counseling at this time - f/u prn Assessment & Plan (05/12/2023 8:53 AM CDT): -stable off meds Assessment & Plan (11/05/2022 4:46 PM [employer]): - stable - continue current medication Assessment & Plan (04/30/2022 4:45 PM CDT): - stable - continue current medication Resolved Problems Problem Noted Date Diagnosed Date Resolved Date Acute non-recurrent maxillary sinusitis 06/24/2023 12/23/2023 Assessment & Plan (06/24/2023 8:32 AM CDT): - restart jr and flonase - prednisone and augmentin - continue neti pot - f/u prn Immunizations Immunization Administration Dates Next Due Influenza, Unspecified 12/25/2023(Deferr ed: Other),08/02/2022(Deferred: Patient Refused) Tdap 06/24/2024 ZOSTER Recombinant 06/24/2024,11/05/2022 Surgical History Surgery Date Site/Laterality Comments CT DELIVERY ONLY Section - (Added by TW Conv) CT LIG/TRNSXJ FLP TUBE ABDL/VAG APPR UNI/BI Tubal Ligation - (Added by TW Conv) CT HYSTEROSCOPY ENDOMETRIAL ABLATION Hysteroscopy With Endometrial Ablation [...] on file Legal Sex Female 9:09 PM [employer] Gender Identity Not on file Sexual Orientation [...] 89 06/24/2024 3:33 PM CDT Temperature 36.2 C (97.1 F) 06/24/2024 3:33 PM CDT Respiratory Rate 16 06/24/2024 3:33 PM CDT Oxygen Saturation 96% 06/24/2024 3:33 PM CDT Inhaled Oxygen Concentration - - Weight 97.8 kg (215 lb 9.6 oz) 06/24/2024 3:33 P M CDT Height 154.9 cm (5' 1) 06/24/2024 3:33 PM CDT Body Mass Index 40.74 06/24/2024 3:33 PM CDT Plan of Treatment Health Maintenance Due Date Last Done Comments Cervical Cancer Screening 1965 Hepatitis C Screening 1965 Hepatitis B Screening 1983 Pneumococcal vaccine <65 (1 of 2 - PCV) 01/04/1984 Depression Screening 12/25/2024 12/25/2023, 11/05/2022, 04/30/2022, Additional history exists Regular Well Visit/Exam 18-64 12/25/2024, 11/05/2022, 07/16/2021, Additional history exists Colon Cancer Screening-Colonoscopy 05/14/2025 05/14/2015 Covid-19 Vaccine (3 - 2024-2 6 season) 2025 09/11/2021, 11/28/2020 Influenza Vaccine (#1) 2025 Breast Cancer Screening-Mammogram 10/21/2025 024 DTaP/Tdap/Td Vaccine (2 - Td or Tdap) 06/24/2034 06/24/2024 Colon Cancer Screening-CT Colonography Discontinued 05/14/2015 Colon Cancer Screening-DNA Stool Discontinued 05/14/20 15 Colon Cancer Screening-FIT Discontinued 05/14/2015 Colon Cancer Screening-Sigmoidoscopy Discontinued 05/14/2015 Zoster Vaccine Completed 06/24/2024, 11/05/2022 Procedures Procedure Name Priority Date/Time Associated Diagnosis Comments SCREENING MAMMOGRAM BILATERAL W DEREK Schedule Routine, Read Routine (OP Routine) 10/21/2024 11:15 AM [employer] COLONOSCOPY REPORT 05/14/2015 from Last 3 Months or Most Recently Relevant to Health Maintenance Results * Screening Mammogram Bilateral W Derek (10/21/2024 11:15 AM [employer]) Anatomical Region Laterality Modality Breast Bilateral Mammography Historical Provider IMG MAMMO PROCEDURES Peggy l Result * COLONOSCOPY REPORT (05/14/2015) Anatomical Region Laterality Modality Other Narrative 05/14/2015 Ordered by an unspecified provider. Historical Provider GI PROCEDURE ORDERABLES F inal Result from Last 3 Months or Most Recently Relevant to Health Maintenance Insurance [facility] CHOICE PLUS [facility] Care Teams Medical Corps Officer Relationship Specialty Start Date End Date Davin Mcgrath MD [facility] [address] PCP - General Family Medicine 04/30/22 [place] [address] [place] [id number] 02/14/21
== END 2025-10-27 09:05 | disposition home or self-care (01) ==
LOC: ANHFOHIMG 09:07
PROVIDERS: PCP Family Medicine; Visit Provider Family Medicine
DX: Z12.31 Encounter for screening mammogram for malignant neoplasm of breast (principal)
CPT/HCPCS: 77063; 77067